=== PATIENT | female | born 1940 | race Caucasian/White ===

== ENCOUNTER 2018-04-01 06:00 | Outpatient (RCR) | payer MEDICARE ==
[~2018-04-01 06:00] MED LIST: ASP81CT PO; BIMA2.5D4 OU; CA C1TAB80 PO; CLD600T PO; CLOP75TA PO; DORZ10DR19 OU; HYDR28CR10 TOP; LISI2.5T PO; LISI5TAB14 PO; LORA0.5T PO; MTP25TSR PO; SIMV20TA3 PO; SIMV40TA4 PO; TRAV5DRO OD
== END 2018-04-02 | disposition home or self-care (01) ==
LOC: CR3 06:00
PROVIDERS: ATTEND Internal Medicine
DX: Z29.8 Encounter for other specified prophylactic measures (principal)

== ENCOUNTER 2018-05-02 08:29 | Outpatient (RCR) | payer MEDICARE | END 2018-05-03 | disposition home or self-care (01) | LOC: CR3 08:29 | PROVIDERS: ATTEND Internal Medicine | DX: Z29.8 Encounter for other specified prophylactic measures (principal) ==

== ENCOUNTER 2018-06-02 08:45 | Outpatient (RCR) | payer MEDICARE | END 2018-06-04 | disposition home or self-care (01) | LOC: CR3 08:45 | PROVIDERS: ATTEND Internal Medicine | DX: Z29.8 Encounter for other specified prophylactic measures (principal) ==

== ENCOUNTER 2018-07-02 10:10 | Outpatient (RCR) | payer MEDICARE | END 2018-07-03 | disposition home or self-care (01) | LOC: CR3 10:10 | PROVIDERS: ATTEND Internal Medicine | DX: Z29.8 Encounter for other specified prophylactic measures (principal) ==

== ENCOUNTER 2018-08-01 06:19 | Outpatient (RCR) | payer MEDICARE | END 2018-08-02 | disposition home or self-care (01) | LOC: CR3 06:19 | PROVIDERS: ATTEND Internal Medicine | DX: Z29.8 Encounter for other specified prophylactic measures (principal) ==

== ENCOUNTER → 2018-09-05 | Outpatient (RCR) | payer MEDICARE | END | disposition home or self-care (01) | LOC: CR3 08-06 09:00 | PROVIDERS: ATTEND Internal Medicine | DX: Z29.8 Encounter for other specified prophylactic measures (principal) ==

== ENCOUNTER → 2018-10-08 | Outpatient (RCR) | payer MEDICARE | END | disposition home or self-care (01) | LOC: CR3 09-08 09:00 | PROVIDERS: ATTEND Internal Medicine | DX: Z29.8 Encounter for other specified prophylactic measures (principal) ==

== ENCOUNTER 2018-11-07 08:09 | Outpatient (RCR) | payer MEDICARE | END 2018-11-08 | disposition home or self-care (01) | LOC: CR3 08:09 | PROVIDERS: ATTEND Internal Medicine | DX: Z29.8 Encounter for other specified prophylactic measures (principal) ==

== ENCOUNTER → 2018-12-10 | Outpatient (RCR) | payer MEDICARE | END | disposition home or self-care (01) | LOC: CR3 11-10 08:00 | PROVIDERS: ATTEND Internal Medicine | DX: Z29.8 Encounter for other specified prophylactic measures (principal) | CPT/HCPCS: 93798 ==

== ENCOUNTER 2019-01-06 06:00 | Outpatient (RCR) | payer MEDICARE | END 2019-01-10 | disposition home or self-care (01) | LOC: CR3 06:00 | PROVIDERS: ATTEND Internal Medicine | DX: Z29.8 Encounter for other specified prophylactic measures (principal) ==

== ENCOUNTER → 2019-02-11 | Outpatient (RCR) | payer MEDICARE | END | disposition home or self-care (01) | LOC: CR3 01-12 08:00 | PROVIDERS: ATTEND Internal Medicine | DX: Z29.8 Encounter for other specified prophylactic measures (principal) ==

== ENCOUNTER 2019-03-12 06:00 | Outpatient (RCR) | payer MEDICARE | END 2019-03-14 | disposition home or self-care (01) | LOC: CR3 06:00 | PROVIDERS: ATTEND Internal Medicine | DX: Z29.8 Encounter for other specified prophylactic measures (principal) ==

== ENCOUNTER → 2019-04-15 | Outpatient (RCR) | payer MEDICARE | END | disposition home or self-care (01) | LOC: CR3 03-16 08:00 | PROVIDERS: ATTEND Internal Medicine | DX: Z29.8 Encounter for other specified prophylactic measures (principal) ==

== ENCOUNTER 2019-05-08 08:06 | Outpatient (RCR) | payer MEDICARE | END 2019-05-17 | disposition home or self-care (01) | LOC: CR3 08:06 | PROVIDERS: ATTEND Internal Medicine | DX: Z29.8 Encounter for other specified prophylactic measures (principal) ==

== ENCOUNTER 2019-06-24 08:08 | Outpatient (RCR) | payer MEDICARE | END 2019-06-25 | disposition home or self-care (01) | LOC: CR3 08:08 | PROVIDERS: ATTEND Internal Medicine | DX: Z29.8 Encounter for other specified prophylactic measures (principal) ==

== ENCOUNTER 2019-07-24 08:13 | Outpatient (RCR) | payer MEDICARE | END 2019-07-25 | disposition home or self-care (01) | LOC: CR3 08:13 | PROVIDERS: ATTEND Internal Medicine | DX: Z29.8 Encounter for other specified prophylactic measures (principal) ==

== ENCOUNTER 2019-08-25 06:00 | Outpatient (RCR) | payer MEDICARE | END 2019-08-26 | disposition home or self-care (01) | LOC: CR3 06:00 | PROVIDERS: ATTEND Internal Medicine | DX: Z29.8 Encounter for other specified prophylactic measures (principal) ==

== ENCOUNTER 2019-09-25 09:00 | Outpatient (RCR) | payer MEDICARE | END 2019-09-26 00:12 | disposition home or self-care (01) | LOC: CR3 09:00 | PROVIDERS: ATTEND Internal Medicine | DX: Z29.8 Encounter for other specified prophylactic measures (principal) ==

== ENCOUNTER 2019-10-23 07:33 | Outpatient (RCR) | payer MEDICARE | END 2019-10-25 | disposition home or self-care (01) | LOC: CR3 07:33 | PROVIDERS: ATTEND Internal Medicine | DX: Z29.8 Encounter for other specified prophylactic measures (principal) ==

== ENCOUNTER 2019-11-23 08:12 | Outpatient (RCR) | payer MEDICARE | END 2019-11-25 | disposition home or self-care (01) | LOC: CR3 08:12 | PROVIDERS: ATTEND Internal Medicine | DX: Z29.8 Encounter for other specified prophylactic measures (principal) ==

== ENCOUNTER 2019-12-29 06:00 | Outpatient (RCR) | payer MEDICARE | END 2019-12-30 | disposition home or self-care (01) | LOC: CR3 06:00 | PROVIDERS: ATTEND Internal Medicine | DX: Z29.8 Encounter for other specified prophylactic measures (principal) ==

== ENCOUNTER 2020-01-29 08:09 | Outpatient (RCR) | payer MEDICARE | END 2020-01-30 | disposition home or self-care (01) | LOC: CR3 08:09 | PROVIDERS: ATTEND Internal Medicine | DX: Z29.8 Encounter for other specified prophylactic measures (principal) ==

== ENCOUNTER 2020-02-11 06:00 | Outpatient (RCR) | payer MEDICARE ==
--- NOTE | 2020-02-09 17:45 | NUR ---
CONTACTED PT FOR INFECTIOUS DISEASE SCREENING (PER ADMINISTRATION ORDERS)
== END 2020-03-02 | disposition home or self-care (01) ==
LOC: CR3 06:00
PROVIDERS: ATTEND Internal Medicine
DX: Z29.8 Encounter for other specified prophylactic measures (principal)

== ENCOUNTER → 2020-05-17 | Outpatient (CLI) | payer MEDICARE ==
[~2020-05-17] VITALS: Ht 172 cm; Wt 74.0 kg
[~2020-05-17] MED LIST changes: +CATHETER FLUSH 10 ML SYR IV PRN; +REGADENOSON 0.4 MG/5 ML SYR (LEXISCAN) IV ONE
[2020-05-17 09:35] VITALS: BP 163/95
--- NOTE | 2020-05-17 17:29 | STRESS TEST ---
DATE OF SERVICE: 05/17/2020 RESTING AND POST REGADENOSON TECHNETIUM-99M TETROFOSMIN SPECT CT IMAGING ORDERING PHYSICIAN: Lisha Brizuela APRN PRIMARY PHYSICIAN: Dr. Blake. CLINICAL DIAGNOSIS: Coronary artery disease. Baseline images were carried out after injection of 10.36 mCi of technetium-99m Tetrofosmin. This was followed by 0.4 mg regadenoson and 31.2 mCi of technetium-99m Tetrofosmin for stress imaging. The electrocardiogram showed sinus rhythm at baseline. It did not change significantly with regadenoson infusion. The patient had mild sternal pressure following regadenoson infusion, which resolved in a minute or two. The patient overall tolerated the procedure well. Review of images at rest and following stress does not indicate significant perfusion defects consistent with myocardial ischemia or infarction. Gated images show normal global left ventricular systolic function with normal regional wall motion. Left ventricular ejection fraction is calculated to be 76%. Left ventricular end diastolic volume is 25 mL. TID is absent (1.06). CONCLUSIONS: 1. No evidence of any significant myocardial ischemia or infarction on this study. 2. Normal regional wall motion. 3. Normal global left ventricular systolic function with a calculated ejection fraction of 76%. Job ID: [id number] DocumentID: [id number] Dictated Date: 05/17/2020 16:15:38 Intelligence Director Date: 05/17/2020 17:29:00 Dictated By: LEN CAMPOS MD, MA, FACP, FACC,
== END ==
LOC: CARD 07:46
PROVIDERS: ATTEND Nurse Practitioner Family
DX: I25.10 Atherosclerotic heart disease of native coronary artery without angina pectoris (principal); I65.23 Occlusion and stenosis of bilateral carotid arteries; E78.5 Hyperlipidemia, unspecified
CPT/HCPCS: 78452; 93017; A9502

== ENCOUNTER → 2021-03-15 | Outpatient (RCR) | payer MEDICARE ==
[~2021-03-15] MED LIST changes: -CATHETER FLUSH 10 ML SYR IV PRN; -REGADENOSON 0.4 MG/5 ML SYR (LEXISCAN) IV ONE
== END | disposition home or self-care (01) ==
LOC: CR3 02-13 08:37
PROVIDERS: ATTEND Internal Medicine
DX: Z29.8 Encounter for other specified prophylactic measures (principal)

== ENCOUNTER 2021-04-14 08:08 | Outpatient (RCR) | payer MEDICARE | END 2021-04-16 | disposition home or self-care (01) | LOC: CR3 08:08 | PROVIDERS: ATTEND Internal Medicine | DX: Z29.8 Encounter for other specified prophylactic measures (principal) ==

== ENCOUNTER → 2021-05-17 | Outpatient (RCR) | payer MEDICARE | END | disposition home or self-care (01) | LOC: CR3 04-17 07:51 | PROVIDERS: ATTEND Internal Medicine | DX: Z29.8 Encounter for other specified prophylactic measures (principal) ==

== ENCOUNTER → 2021-06-21 | Outpatient (RCR) | payer MEDICARE | LOC: CR3 05-22 12:19 | PROVIDERS: ATTEND Internal Medicine | DX: Z00.00 Encounter for general adult medical examination without abnormal findings (principal) ==

== ENCOUNTER 2021-07-19 08:35 | Outpatient (RCR) | payer MEDICARE | END 2021-07-23 | LOC: CR3 08:35 | PROVIDERS: ATTEND Internal Medicine | DX: Z29.8 Encounter for other specified prophylactic measures (principal) ==

== ENCOUNTER → 2021-08-23 | Outpatient (RCR) | payer MEDICARE | END | disposition home or self-care (01) | LOC: CR3 07-24 08:52 | PROVIDERS: ATTEND Internal Medicine | DX: Z29.8 Encounter for other specified prophylactic measures (principal) ==

== ENCOUNTER 2021-09-25 08:45 | Outpatient (RCR) | payer MEDICARE | END 2021-09-27 | disposition home or self-care (01) | LOC: CR3 08:45 | PROVIDERS: ATTEND Internal Medicine | DX: Z29.8 Encounter for other specified prophylactic measures (principal) ==

== ENCOUNTER → 2021-11-01 | Outpatient (RCR) | payer MEDICARE | END | disposition home or self-care (01) | LOC: CR3 10-02 08:19 | PROVIDERS: ATTEND Internal Medicine | DX: Z29.8 Encounter for other specified prophylactic measures (principal) ==

== ENCOUNTER 2021-11-17 13:00 | Outpatient (RCR) | payer MEDICARE | END 2021-12-01 | disposition home or self-care (01) | PROVIDERS: ATTEND Internal Medicine | DX: M54.2 Cervicalgia (principal); Z95.5 Presence of coronary angioplasty implant and graft ==

== ENCOUNTER 2021-11-22 09:22 | Outpatient (RCR) | payer MEDICARE ==
[2021-12-22] MEDS ORDERED: NITR-65 PO (13:36)
== END 2021-12-31 | disposition home or self-care (01) ==
LOC: CR3 09:22
PROVIDERS: ATTEND Internal Medicine
DX: Z29.8 Encounter for other specified prophylactic measures (principal)

== ENCOUNTER → 2021-12-01 | Outpatient (CLI) | payer MEDICARE ==
--- NOTE | 2021-12-01 11:24 | Diagnostic Imaging Report ---
Indication: Right shoulder pain 3 views of the right shoulder show no fracture, dislocation or other acute abnormalities. IMPRESSION: Negative right shoulder Dictated by: Dictated on workstation # [id number]
== END ==
LOC: RAD 10:54
PROVIDERS: ATTEND Nurse Practitioner Family
DX: M25.511 Pain in right shoulder (principal); Z91.81 History of falling
CPT/HCPCS: 73030

== ENCOUNTER 2021-12-22 10:51 | Emergency (ER) | payer MEDICARE ==
[~2021-12-22] VITALS: Ht 170.2 cm; Wt 65.8 kg
[2021-12-22] MEDS ORDERED: NS IV 500 ML 500 ML IV ONE (11:15)
[2021-12-22 11:22] LABS: BASOPHILS % (AUTO) 0 % (0-10); EOSINOPHILS # (AUTO) 0.2 10^3/uL (0.0-0.3); EOSINOPHILS % (AUTO) 3 % (0-10); HEMATOCRIT 36 % (35-52); HEMOGLOBIN 11.7 g/dL (11.5-16.0); LYMPHOCYTES # (AUTO) 1.6 10^3/uL (1.0-4.0); LYMPHOCYTES % (AUTO) 19 % (12-44); MEAN CORPUSCULAR HEMOGLOBIN 33 pg (25-34); MEAN CORPUSCULAR HGB CONC 32 g/dL (32-36); MEAN CORPUSCULAR VOLUME 104 fL (80-99); MEAN PLATELET VOLUME 8.8 fL (9.0-12.2); MONOCYTES # (AUTO) 0.5 10^3/uL (0.0-1.0); MONOCYTES % (AUTO) 6 % (0-12); NEUTROPHILS % (AUTO) 72 % (42-75); PLATELET COUNT 211 10^3/uL (130-400); WHITE BLOOD COUNT 8.4 10^3/uL (4.3-11.0)
--- NOTE | 2021-12-22 11:23 | ED Neurological Problem ---
General Stated Complaint: STROKE LIKE SYMPTOMS Source: patient Exam Limitations: no limitations History of Present Illness Date Seen by Provider: Dec 22, 2021 Time Seen by Provider: 11:05 Initial Comments Patient to the ER by private conveyance with her and chief complaint she has been acting weird for the past couple days. No specific last known well time. He says she is a little bit been slurring her speech at time very barely noticeable. He has not seen any facial droop weakness. She has no complaints of numbness tingling pain headaches, visual changes nausea vomiting fevers chills cough shortness of air diarrhea or constipation. Her last bowel meant was yesterday. The patient states she feels fine. The patient's says she in the past week has had two falls the first time was when they put her on a platform at a restaurant and she did not realize she was up 4 inches and missed the step. The last time yesterday was at the bottom two steps she missed stepped and fell down. She had an x-ray done of her ribs at the time which was okay. She was put on meloxicam by Dr. Blake's nurse practitioner in the last week or so. No history of strokes but she does have a history of stents. She is known to Dr. Welsh for cardiology. She is on Plavix. No blood thinners. Allergies and Home Medications Allergies Coded Allergies: No Known Drug Allergies (Unverified , 06/02/13) Patient Home Medication List Home Medication List Reviewed: Yes Aspirin (Aspirin 81 Mg Chew Tab) 81 Mg Chew, 81 MG PO DAILY, (Reported) Entered as Reported by: STEVIE LOUISE on 06/04/13 142 Ca Carbonate/Vitamin D3/Vit K (Viactiv Soft Chew Tablet) 1 Each Tab.chew, 1 TAB PO BID, (Reported) Entered as Reported by: MARU MCLEAN on 11/05/13 1112 Clopidogrel Bisulfate (Plavix 75 Mg) 75 Mg Tablet, 75 MG PO DAILY, (Reported) Entered as Reported by: STEVIE LOUISE on 06/04/13 1427 Hydrocortisone/Oatmeal/Aloe/E (Hydrocortisone 1% Cream) 28.4 Gm Cream.gm., 1 GM TOP TID PRN for RASH, (Reported) Entered as Reported by: SUDEEP PEREZ on 06/02/13 1639 Lisinopril (Prinivil) 2.5 Mg Tablet, 2.5 MG PO DAILY, (Reported) Entered as Reported by: STEVIE LOUISE on 06/04/13 1427 Metoprolol Succinate (Toprol Xl 25MG) 25 Mg Tab.sr.24h, 25 MG PO DAILY, (Reported) Entered as Reported by: STEVIE LOUISE on 06/04/13 1427 Simvastatin (Simvastatin) 40 Mg Tablet, 40 MG PO DAILY, (Reported) Entered as Reported by: HERNÁN WINKLER on 11/04/132058 Timolol Maleate/Dorzolam Hcl (Dorzolamide-Timolol Eye Drops) 10 Ml Drops, 1 DROP OU BID, (Reported) Entered as Reported by: SUDEEP PEREZ on 06/02/13 163 Travoprost (Travatan Z) 5 Ml Drops, 1 DROP OD HS, (Reported) Entered as Reported by: MARU MCLEAN on 11/05/13 1106 [[id number]] , 2.5 MG PO BID Prescribed by: SONNY KNIGHT on 11/06/13 0958 Review of Systems Review of Systems Constitutional: No chills, No diaphoresis, No dizziness, No fever, No malaise, No weakness Eyes: Denies Blindness, Denies Blurred Vision, Denies Drainage Ears, Nose, Mouth, Throat: denies ear pain, denies ear discharge Respiratory: No cough, No short of breath Cardiovascular: No chest pain, No edema; Hx of Intervention; No palpitations, No syncope Gastrointestinal: No abdominal pain, No constipation, No diarrhea Genitourinary: No discharge, No dysuria, No frequency, No hematuria Musculoskeletal: see HPI; No back pain, No joint pain Psychiatric/Neurological: Denies Anxiety, Denies Depressed All Other Systems Reviewed Negative Unless Noted: Yes Past Ixiupdp-Ejzdgn-Fipqpm Hx Patient Social History Tobacco Use?: No Use of E-Cig and/or Vaping dev: No Substance use?: No Immunizations Up To Date Tetanus Booster (TDap): Less than 5yrs Seasonal Allergies Seasonal Allergies: No Past Medical History Reproductive Disorders: No Sexually Transmitted Disease: No Glaucoma Hearing Impairment: Hard of Hearing Adverse Reaction/Blood Tranf: No Family Medical History Cancer AUNT (PATERNAL) AUNT (PATERNAL) Chest pain GRANDFATEHR (MATERNAL) Family history: Arthritis 03 FATHER 03 MOTHER Family history: Breast disease AUNT (PATERNAL) AUNT (PATERNAL) Family history: Cardiovascular disease GRANDFATEHR (MATERNAL) Family history: Coronary thrombosis GRANDFATEHR (MATERNAL) Family history: Diabetes mellitus 03 MOTHER Family history: Hypertension GRANDFATEHR (MATERNAL) Hearing loss 03 FATHER Myocardial infarction GRANDFATEHR (MATERNAL) Stroke GRANDMOTHER (MATERNAL) Heart Disease Physical Exam Vital Signs Vital Signs - First Documented 12/22/21 10:53 Temp 36.2 Pulse 70 Resp 15 B/P (MAP) 139/70 (93) O2 Delivery Room Air Capillary Refill : Height, Weight, BMI Height: '" Weight: 151lbs. oz. 68.370581fk; 25.01 BMI Method:Stated General Appearance: WD/WN, no apparent distress HEENT: PERRL/EOMI, normal ENT inspection, TMs normal (Negative for hemotympanum or blackburn sign), pharynx normal Neck: non-tender, full range of motion, supple, normal inspection Respiratory: chest non-tender, lungs clear, normal breath sounds, no respiratory distress, no accessory muscle use Cardiovascular: normal peripheral pulses, regular rate, rhythm, no edema Peripheral Pulses: 2+ Dorsalis Pedis (R), 2+ Left Dors-Pedis (L), 2+ Radial Pulses (R), 2+ Radial Pulses (L) Gastrointestinal: normal bowel sounds, non tender, soft Neurologic/Psychiatric: slurry tank tender II-XII nml as tested, no motor/sensory deficits, alert, normal mood/affect, oriented x 3 Crainal Nerves: normal hearing, normal speech, PERRL Coordination/Gait: normal finger to nose, normal gait Motor/Sensory: no motor deficit, no sensory deficit, no pronator drift Skin: normal color, warm/dry Stroke Onset of Symptoms Date of Onset of Symptoms: Dec 20, 2021 Symptoms onset unknown: Yes NIH Stroke Scale Assessment Select: Initial Level of Consciousness: 0=Alert (0), Level of Consciousness- Questions: 0=Answers both month/age (0), LOC Commands: 0=Performs both tasks (0), Gaze: Normal (0), Visual [place]ral: 0=No visual loss (0), Facial Movement (Facial Paresis): 0=Normal symmetrical mnt (0), Motor Function-Arms Right: 0=No drift (0), Motor Function-Arms Left: 0=No drift (0), Motor Function-Legs Right: 0=No drift (0), Motor Function-Legs Left: 0=No drift (0), Limb Ataxia: 0=Absent (0), Sensory: 0=Normal:no loss (0), Best Language: 0=No aphasia (0), Dysarthria: 0=Normal (0), Extinction & Inattention: 0=No abnormality (0), Total: 0 Stroke Thrombolytic Exclusion Age 18 or Over: No Acute intenal hemorrhage: No History of CVA: No Uncontrolled Coagulation Defec: No Intracranial Hemorrhage: No Severe Hypertension: No GI or Bleed: No Subarachnoid Hemorrhage: No Intracranial Neoplasm/Aneurysm: No Oral Anticoagulants: No Surgery or Trauma: No Puncture of Non-Compressible V: No Recent CPR: No Diabetic Hemorrhagic Retinopat: No Organ Biopsy: No Recent Obstetric Delivery: No Glucose: No (120) Significant Hepatic Dysfunctio: No NIH Stoke Scale >22: No Bacterial Endocarditis: No Pericarditis: No Improving Symptoms: No Platelets: No TPA Contraindication: No IV - TPa Received IV - TPa Procedure Performed?: No (Insufficient benefit based on lack of features of stroke) Progress/Results/Core Measures Results/Orders Lab Results Laboratory Tests Test 12/22/21 10:57 12/22/21 11:07 12/22/21 11:30 12/22/21 12:36 Range/Units Glucometer 120 H 70-110 MG/DL White Blood Count 8.4 4.3-11.0 10^3/uL Red Blood Count 3.51 L 3.80-5.11 10^6/uL Hemoglobin 11.7 11.5-16.0 g/dL Hematocrit 36 35-52 % Mean Corpuscular Volume 104 H 80-99 fL Mean Corpuscular Hemoglobin 33 25-34 pg Mean Corpuscular Hemoglobin Concent 32 32-36 g/dL Red Cell Distribution Width 12.5 10.0-14.5 % Platelet Count 211 130-400 10^3/uL Mean Platelet Volume 8.8 L 9.0-12.2 fL Immature Granulocyte % (Auto) 1 % Neutrophils (%) (Auto) 72 42-75 % Lymphocytes (%) (Auto) 19 12-44 % Monocytes (%) (Auto) 6 0-12 % Eosinophils (%) (Auto) 3 0-10 % Basophils (%) (Auto) 0 0-10 % Neutrophils # (Auto) 6.0 1.8-7.8 10^3/uL Lymphocytes # (Auto) 1.6 1.0-4.0 10^3/uL Monocytes # (Auto) 0.5 0.0-1.0 10^3/uL Eosinophils # (Auto) 0.2 0.0-0.3 10^3/uL Basophils # (Auto) 0.0 0.0-0.1 10^3/uL Immature Granulocyte # (Auto) 0.0 0.0-0.1 10^3/uL Sodium Level 134 L 135-145 MMOL/L Potassium Level 4.4 3.6-5.0 MMOL/L Chloride Level 102 98-107 MMOL/L Carbon Dioxide Level 22 21-32 MMOL/L Anion Gap 10 5-14 MMOL/L Blood Urea Nitrogen 15 7-18 MG/DL Creatinine 0.81 0.60-1.30 MG/DL Estimat Glomerular Filtration Rate 72 BUN/Creatinine Ratio 19 Glucose Level 105 70-105 MG/DL Calcium Level 9.2 8.5-10.1 MG/DL Corrected Calcium 9.1 8.5-10.1 MG/DL Total Bilirubin 0.5 0.1-1.0 MG/DL Aspartate Amino Transf (AST/SGOT) 19 5-34 U/L Alanine Aminotransferase (ALT/SGPT) 14 0-55 U/L Alkaline Phosphatase 72 40-136 U/L Troponin I < 0.028 <0.028 NG/ML C-Reactive Protein High Sensitivity 0.45 0.00-0.50 MG/DL Total Protein 7.2 6.4-8.2 GM/DL Albumin 4.1 3.2-4.5 GM/DL Serum Alcohol < 10 <10 MG/DL Influenza Type A (RT-PCR) Not Detected Not Detecte Influenza Type B (RT-PCR) Not Detected Not Detecte SARS-CoV-2 RNA (RT-PCR) Not Detected Not Detecte Urine Color YELLOW Urine Clarity CLEAR Urine pH 6.5 5-9 Urine Specific [place] 1.020 1.016-1.022 Urine Protein NEGATIVE NEGATIVE Urine Glucose (UA) NEGATIVE NEGATIVE Urine Ketones NEGATIVE NEGATIVE Urine Nitrite NEGATIVE NEGATIVE Urine Bilirubin NEGATIVE NEGATIVE Urine Urobilinogen 0.2 < = 1.0 MG/DL Urine Leukocyte Esterase TRACE H NEGATIVE Urine RBC (Auto) TRACE-I H NEGATIVE Urine RBC 0-2 /HPF Urine WBC 2-5 /HPF Urine Squamous Epithelial Cells 2-5 /HPF Urine Crystals NONE /LPF Urine Bacteria LARGE H /HPF Urine Casts NONE /LPF Urine Mucus NEGATIVE /LPF Urine Culture Indicated YES My Orders Orders - ELSY MORALES Ct Head/Cervical Spine Wo (12/22/21 11:11) Ed Iv/Invasive Line Start (12/22/21 11:11) Cbc With Automated Diff (12/22/21 11:11) Comprehensive Metabolic Panel (12/22/21 11:11) Hs C Reactive Protein (12/22/21 11:11) Ua Culture If Indicated (12/22/21 11:11) Alcohol (12/22/21 11:11) Accucheck Stat ONCE (12/22/21 11:11) Ekg Tracing (12/22/21 11:11) Continuous Ekg Monitoring (12/22/21 11:11) Troponin I [place] (12/22/21 11:11) Ed Iv/Invasive Line Start (12/22/21 11:13) Ns Iv 500 Ml (Sodium Chloride 0.9%) (12/22/21 11:15) Chest 1 View, Ap/Pa Only (12/22/21 11:15) Covid 19 Inhouse Test (12/22/21 11:15) Influenza A And B By Pcr (12/22/21 11:15) Acetaminophen Tablet (Tylenol Tablet) (12/22/21 12:45) Urine Culture (12/22/21 12:36) Medications Given in ED Current Medications Medications Dose Ordered Sig/Margo Route Start Time Stop Time Status Last Admin Dose Admin Acetaminophen 1,000 mg ONCE ONCE PO 12/22/21 12:45 12/22/21 12:46 DC 12/22/21 12:56 1,000 MG Sodium Chloride 500 ml @ 0 mls/hr Q0M ONCE IV 12/22/21 11:15 12/22/21 11:16 DC 12/22/21 11:32 999 MLS/HR Vital Signs/I&O 12/22/21 10:53 Temp 36.2 Pulse 70 Resp 15 B/P (MAP) 139/70 (93) O2 Delivery Room Air Progress Progress Note #1: Time: 11:22 Progress Note No lateralizing symptoms. Symptoms more consistent with a delirium. She did recently start meloxicam so we will check fluid and electrolytes and kidney function. We will get a CT since she had a couple falls to rule out subdural hematoma or normal pressure hydrocephalus or other intracranial source of her symptoms. We will check urine and labs get an EKG looking for dysrhythmias. The patient's not giving any acute complaints at this time. Progress Note #2: Time: 12:57 Progress Note The patient is complaining of a headache. Tylenol has been offered. Progress Note #3: Time: 13:32 Progress Note On repeat examination the patient's symptoms have not changed. He is not having any lateralizing deficits or neurologic deficits. Repeat NIH is still 0 points. We will give her Macrobid and encourage outpatient treatment of UTI. Follow-up next week or 2 with primary care. Discussed over the phone with her the likelihood of delirium related to urinary tract infection. Initial ECG Impression Date: Dec 22, 2021 Initial ECG Impression Time: 11:34 Initial ECG Rate: 64 Initial ECG Rhythm: Normal Sinus Initial ECG Intervals: Normal Initial ECG Impression: Normal, Nonspecific Changes Initial ECG Comparisson: No Previous ECG Available Comment Normal sinus rhythm without clinically relevant dysrhythmias or ST elevation or depression. Diagnostic Imaging Diagonstic Imaging: Xray Plain Films/CT/US/NM/MRI: chest Comments NAME: GRAHAM SIMMONS [facility] REC#: [id number] PT STATUS: REG ER : 1940 PHYSICIAN: ELSY MORALES MD ADMIT DATE: 12/22/21/ER Draft Date of Exam:12/22/21 CHEST 1 VIEW, AP/PA ONLY INDICATION: Stroke like symptoms, difficulty speaking starting last night.. TECHNIQUE: Single view chest 4:32 PM. CORRELATION STUDY: 11/04/2013 FINDINGS: The heart size, mediastinal configuration and pulmonary vascularity are within normal limits. Coronary artery stent left heart border is present. The lungs are clear with no consolidating infiltrate. There is no significant effusion or pneumothorax. IMPRESSION: 1. Negative for acute abnormality of the chest. Dictated on workstation # [id number] Dict: 12/22/21 1253 Trans: 12/22/21 1254 [id number] Interpreted by: MICHELE ANGUIANO DO Electronically signed by: Reviewed: Reviewed by Me Diagonstic Imaging: CT Plain Films/CT/US/NM/MRI: c-spine, head Comments [facility] [place], [place] NAME: GRAHAM SIMMONS [facility] REC#: [id number] PT STATUS: REG ER : 1940 PHYSICIAN: ELSY MORALES MD ADMIT DATE: 12/22/21/ER Draft Date of Exam:12/22/21 CT HEAD/CERVICAL SPINE WO PROCEDURE: CT head and CT cervical spine without contrast. TECHNIQUE: Multiple contiguous axial images were obtained through the brain and cervical spine without the use of intravenous contrast. Sagittal and coronal reformations through the cervical spine were then performed. Auto Exposure Controls were utilized during the CT exam to meet ALARA standards for radiation dose reduction. INDICATION: Frequent falls. COMPARISON: No prior studies are available for comparison. FINDINGS: CT HEAD: The ventricles and sulci are prominent consistent with the patient's age. There is mild periventricular hypodensity noted consistent with senescent change. No sulcal effacement or midline shift is identified. No acute intra-axial or extra-axial hemorrhage is detected. Cisterns are patent. Visualized paranasal sinuses are clear apart from trace fluid in the right maxillary sinus. IMPRESSION: Senescent changes. No acute intracranial process is detected. CT CERVICAL SPINE: Curvature and alignment of the cervical spine is normal. There is some generalized spondylosis with variable disc space narrowing. There is multilevel facet arthropathy. No fracture or subluxation is identified. Prevertebral tissues are within normal limits. Odontoid is intact. IMPRESSION: Cervical spondylosis. No acute bony abnormality is detected. Dictated on workstation # [id number] Dict: 12/22/21 1225 Trans: 12/22/21 1235 [id number] Interpreted by: HÉCTOR DUONG MD Electronically signed by: Reviewed: Reviewed by Me Departure Impression Primary Impression: Urinary tract infection Qualified Codes: N30.00 - Acute cystitis without hematuria Additional Impression: Delirium Disposition: HOME, SELF-CARE Condition: Stable Departure-Patient Inst. Decision time for Depature: 13:33 Referrals: GABBIE BLAKE MD (PCP/Family) Primary Care Physician Patient Instructions: Urinary Tract Infection, Adult (DC), Delirium (Confusion) Add. Discharge Instructions: Encourage plenty of fluids to drink over the next week. Macrobid twice a day for 1 week to treat urinary tract infection. As the underlying infection resolves so to should her delirium/confusion. If she develops new symptoms such as one-sided facial droop, weakness numbness or other worrisome concerns then please return to the ER for further evaluation. Otherwise plan to follow-up with her primary care office in 1 to 2 weeks for recheck. Scripts Nitrofurantoin Monohyd/M-Cryst (Macrobid 100 mg Capsule) 100 Mg Capsule 1 TAB PO BID for 7 Days, #14 CAP 0 Refills Prov: ELSY MORALES 12/22/21 Copy Copies To 1: GABBIE BLAKE MD, TITUS J Dec 22, 2021 11:23
[2021-12-22 11:27] LABS: ALBUMIN 4.1 GM/DL (3.2-4.5); CHLORIDE 102 MMOL/L (98-107); POTASSIUM 4.4 MMOL/L (3.6-5.0); SODIUM 134 MMOL/L (135-145)
[2021-12-22 11:28] LABS: CALCIUM 9.2 MG/DL (8.5-10.1)
[2021-12-22 11:29] LABS: GLUCOSE 105 MG/DL (70-105)
[2021-12-22 11:30] LABS: TOTAL PROTEIN 7.2 GM/DL (6.4-8.2)
[2021-12-22 11:31] LABS: BILIRUBIN,TOTAL 0.5 MG/DL (0.1-1.0); CARBON DIOXIDE 22 MMOL/L (21-32)
[2021-12-22 11:33] LABS: ALKALINE PHOSPHATASE 72 U/L (40-136); CREATININE SERUM 0.81 MG/DL (0.60-1.30); GFR ESTIMATED 72
[2021-12-22 11:34] LABS: BUN/CREATININE RATIO 19
[2021-12-22 11:36] LABS: ALANINE AMINOTRANSFERASE 14 U/L (0-55)
--- NOTE | 2021-12-22 12:35 | Diagnostic Imaging Report ---
PROCEDURE: CT head and CT cervical spine without contrast. TECHNIQUE: Multiple contiguous axial images were obtained through the brain and cervical spine without the use of intravenous contrast. Sagittal and coronal reformations through the cervical spine were then performed. Auto Exposure Controls were utilized during the CT exam to meet ALARA standards for radiation dose reduction. INDICATION: Frequent falls. COMPARISON: No prior studies are available for comparison. FINDINGS: CT HEAD: The ventricles and sulci are prominent consistent with the patient's age. There is mild periventricular hypodensity noted consistent with senescent change. No sulcal effacement or midline shift is identified. No acute intra-axial or extra-axial hemorrhage is detected. Cisterns are patent. Visualized paranasal sinuses are clear apart from trace fluid in the right maxillary sinus. IMPRESSION: Senescent changes. No acute intracranial process is detected. CT CERVICAL SPINE: Curvature and alignment of the cervical spine is normal. There is some generalized spondylosis with variable disc space narrowing. There is multilevel facet arthropathy. No fracture or subluxation is identified. Prevertebral tissues are within normal limits. Odontoid is intact. IMPRESSION: Cervical spondylosis. No acute bony abnormality is detected. Dictated by: Dictated on workstation # [id number]
[2021-12-22] MEDS ORDERED: ACETAMINOPHEN 500 MG TAB (TYLENOL) PO ONE (12:45)
[2021-12-22 12:46] LABS: BILIRUBIN,URINE NEGATIVE (NEGATIVE); CLARITY,URINE CLEAR; COLOR,URINE YELLOW; GLUCOSE, URINE (UA) NEGATIVE (NEGATIVE); KETONES,URINE NEGATIVE (NEGATIVE); LEUKOCYTE ESTERASE ,URINE TRACE (NEGATIVE); NITRITE,URINE NEGATIVE (NEGATIVE); PH,URINE 6.5 (5-9); PROTEIN,URINE NEGATIVE (NEGATIVE)
--- NOTE | 2021-12-22 12:54 | Diagnostic Imaging Report ---
INDICATION: Stroke like symptoms, difficulty speaking starting last night.. TECHNIQUE: Single view chest 4:32 PM. CORRELATION STUDY: 11/04/2013 FINDINGS: The heart size, mediastinal configuration and pulmonary vascularity are within normal limits. Coronary artery stent left heart border is present. The lungs are clear with no consolidating infiltrate. There is no significant effusion or pneumothorax. IMPRESSION: 1. Negative for acute abnormality of the chest. Dictated by: Dictated on workstation # [id number]
[2021-12-22 12:59] LABS: BACTERIA,URINE LARGE /HPF; RBC,URINE 0-2 /HPF
[2021-12-22] MEDS ORDERED: NITROFURANTOIN 100 MG (MACROBID) CAPSULE PO ONE (13:30)
[2021-12-22] MEDS ORDERED: NITR-65 PO (13:36)
[2021-12-22 14:00] VITALS: BP 127/79
== END 2021-12-22 14:00 | disposition home or self-care (01) ==
LOC: EDUNIT# 10:51 → ER 10:54
DX: N39.0 Urinary tract infection, site not specified (principal); R41.0 Disorientation, unspecified; H40.9 Unspecified glaucoma; Z20.822 Contact with and (suspected) exposure to COVID-19; Z79.82 Long term (current) use of aspirin; Z79.899 Other long term (current) drug therapy; Z79.01 Long term (current) use of anticoagulants
CPT/HCPCS: 70450; 71045; 72125; 80053; 81000; 82947; 84484; 85025; 86141; 87077; 87088; 87186; 87636; 93005; 99284; G0480; 36415; 80320

== ENCOUNTER 2021-12-29 14:14 | Outpatient (RCR) | payer MEDICARE ==
[~2021-12-29 14:14] MED LIST changes: +NITR-65 PO
== END 2022-01-01 | disposition home or self-care (01) ==
PROVIDERS: ATTEND Internal Medicine
DX: M54.2 Cervicalgia (principal)

== ENCOUNTER 2022-01-19 10:15 | Outpatient (RCR) | payer MEDICARE | END 2022-01-19 10:48 | disposition home or self-care (01) | PROVIDERS: ATTEND Internal Medicine | DX: M54.2 Cervicalgia (principal); M25.519 Pain in unspecified shoulder ==

== ENCOUNTER 2022-03-07 16:58 | Outpatient (RCR) | payer MEDICARE | END 2022-03-31 | disposition home or self-care (01) | LOC: CR3 16:58 | PROVIDERS: ATTEND Internal Medicine | DX: Z29.8 Encounter for other specified prophylactic measures (principal) ==

== ENCOUNTER 2022-08-27 18:24 | Inpatient (IN) | payer MEDICARE ==
[~2022-08-27] VITALS: Ht 170 cm; Wt 71.5 kg
--- NOTE | 2022-08-27 18:39 | ED Fall/Injury ---
General Chief Complaint: Hip/Pelvic Problems Stated Complaint: FALL/RT HIP PAIN Nursing Triage Note: PT TO ED BY [facility] WITH C/O R HIP PAIN. PT REPORTS SHE WAS WALKING IN HER HOUSE, FELL AND LANDED ON R HIP. EXTERNAL ROTATION OF R LEG NOTED UPON ARRIVAL. Source: patient (PT RECEIVED PAIN MEDICATION PRIOR TO ARRIVAL, AND IS DROWSY AND LIMITED HISTORIAN AT THIS TIME. ), EMS, spouse History of Present Illness Date Seen by Provider: Aug 27, 2022 Time Seen by Provider: 18:25 Initial Comments PT ARRIVES VIA EMS FROM HOME, ARRIVES VIA POV PT WAS WALKING INTO HER HOUSE, AND LOST HER BALANCE AND FELL, LANDING ON HER RIGHT HIP [place]O [place] DID NOT HIT HER HEAD AND NO LOSS OF CONSCIOUSNESS C/O RIGHT HIP PAIN ONLY. NO PARESTHESIAS OR MOTOR DEFICITS DENIES NECK OR BACK PAIN DENIES PAIN BELOW THE KNEE NO PRIOR INJURY OR PROBLEMS OR SURGERY TO THIS HIP PT IS ON A BLOOD THINNER FOR CAD WITH STENTS X 2--PLAVIX + ASPIRIN EMS GAVE 100 MCG FENTANYL PRIOR TO ARRIVAL. PCP: DR. MONTES HOOKER INSPECTOR: DR. CAMPOS Allergies and Home Medications Allergies Coded Allergies: No Known Drug Allergies (Unverified , 06/02/13) Patient Home Medication List Home Medication List Reviewed: Yes Aspirin (Aspirin 81 Mg Chew Tab) 81 Mg Chew, 81 MG PO DAILY, (Reported) Entered as Reported by: STEVIE LOUISE on 06/04/13 142 Ca Carbonate/Vitamin D3/Vit K (Viactiv Soft Chew Tablet) 1 Each Tab.chew, 1 TAB PO BID, (Reported) Entered as Reported by: MARU MCLEAN on 11/05/13 1112 Clopidogrel Bisulfate (Plavix 75 Mg) 75 Mg Tablet, 75 MG PO DAILY, (Reported) Entered as Reported by: STEVIE LOUISE on 06/04/13 1427 Hydrocortisone/Oatmeal/Aloe/E (Hydrocortisone 1% Cream) 28.4 Gm Cream.gm., 1 GM TOP TID PRN for RASH, (Reported) Entered as Reported by: SUDEEP PEREZ on 06/02/13 1639 Lisinopril (Prinivil) 2.5 Mg Tablet, 2.5 MG PO DAILY, (Reported) Entered as Reported by: STEVIE LOUISE on 06/04/13 1427 Metoprolol Succinate (Toprol Xl 25MG) 25 Mg Tab.sr.24h, 25 MG PO DAILY, (Reported) Entered as Reported by: STEVIE LOUISE on 06/04/13 1427 Nitrofurantoin Monohyd/M-Cryst (Macrobid 100 mg Capsule) 100 Mg Capsule, 1 TAB PO BID Prescribed by: ELSY MORALES on 12/22/21 1336 Simvastatin (Simvastatin) 40 Mg Tablet, 40 MG PO DAILY, (Reported) Entered as Reported by: HERNÁN WINKLER on 11/04/13 205 Timolol Maleate/Dorzolam Hcl (Dorzolamide-Timolol Eye Drops) 10 Ml Drops, 1 DROP OU BID, (Reported) Entered as Reported by: SUDEEP PEREZ on 06/02/13 1639 Travoprost (Travatan Z) 5 Ml Drops, 1 DROP OD HS, (Reported) Entered as Reported by: MARU MCLEAN on 11/05/13 1106 [[id number]] , 2.5 MG PO BID Prescribed by: SONNY KNIGHT on 11/06/13 0958 Review of Systems Review of Systems Constitutional: no symptoms reported Eyes: No Symptoms Reported Ears, Nose, Mouth, Throat: no symptoms reported Respiratory: no symptoms reported Cardiovascular: no symptoms reported Gastrointestinal: no symptoms reported Genitourinary: no symptoms reported Musculoskeletal: see HPI Skin: no symptoms reported Psychiatric/Neurological: No Symptoms Reported Past Vbnrsqq-Puzvid-Csbvco Hx Patient Social History Tobacco Use?: No Use of E-Cig and/or Vaping dev: No Substance use?: No Alcohol Use?: No Immunizations Up To Date Tetanus Booster (TDap): Less than 5yrs Seasonal Allergies Seasonal Allergies: No Past Medical History Surgeries: Yes (CARDIAC CATHS WITH STENTS X 2) Cardiac, Coronary Stent, Eye Surgery Cardiac: Yes (STENTS X 2) Coronary Artery Disease, Heart Attack, High Cholesterol, Hypertension Neurological: No Reproductive Disorders: No Sexually Transmitted Disease: No Genitourinary: No HEENT: Yes Cataract, Glaucoma Hearing Impairment: Hard of Hearing Adverse Reaction/Blood Tranf: No Family Medical History Cancer AUNT (PATERNAL) AUNT (PATERNAL) Chest pain GRANDFATEHR (MATERNAL) Family history: Arthritis 03 FATHER 03 MOTHER Family history: Breast disease AUNT (PATERNAL) AUNT (PATERNAL) Family history: Cardiovascular disease GRANDFATEHR (MATERNAL) Family history: Coronary thrombosis GRANDFATEHR (MATERNAL) Family history: Diabetes mellitus 03 MOTHER Family history: Hypertension GRANDFATEHR (MATERNAL) Hearing loss 03 FATHER Myocardial infarction GRANDFATEHR (MATERNAL) Stroke GRANDMOTHER (MATERNAL) Heart Disease ADDITIONAL PMH: -06/2013--STEMI WITH ANGIOPLASTY AND STENT [address] CAMPOS -11/2013--NSTEMI WITH ANGIOPLASTY AND STENT X 1 TO OBTUSE MARGINAL OF LEFT CIRCUMFLEX--BY DR. CAMPOS Physical Exam Vital Signs Vital Signs - First Documented 08/27/22 18:25 Pulse 61 Resp 17 B/P (MAP) 183/106 (131) Pulse Ox 95 O2 Delivery Room Air Capillary Refill : Less Than 3 Seconds Height, Weight, BMI Height: '" Weight: 151lbs. oz. [id number]; 22.00 BMI Method:Stated General Appearance: WD/WN, no apparent distress, thin HEENT: PERRL/EOMI, other (LEFT CORNEA WITH CLOUDINESS, AND POST OP CHANGES. ) Neck: non-tender, full range of motion, supple, normal inspection Cardiovascular: normal peripheral pulses, regular rate, rhythm, no murmur Respiratory: chest non-tender, normal breath sounds, no respiratory distress, no accessory muscle use Peripheral Pulses: 1+ Dorsalis Pedis (R), 1+ Left Dors-Pedis (L) Gastrointestinal: non tender, soft Back: no CVA tenderness, no vertebral tenderness Extremities: no pedal edema, no calf tenderness, normal capillary refill, other (RIGHT HIP TENDERNESS; RIGHT LEG SHORTENED AND EXTERNALLY ROTATED. DISTAL MOTOR/SENSORY/VASCULAR INTACT) Neurologic/Psychiatric: soup mixer II-XII nml as tested, no motor/sensory deficits, alert, oriented x 3, other (PT WITH SLOW MENTATION AND DROWSINESS-- SINCE RECEIVING FENTANYL BETA TESTER; WAS NORMAL MENTATION PRIOR TO RECEIVING PAIN MEDICATIONS, PER EMS AND ) Skin: normal color, warm/dry; No ecchymosis [place] Coma Score Best Eye Response: (4) Open Spontaneously Best Verbal Response: (5) Oriented Best Motor Response: (6) Obeys Commands [place] Total: 15 Progress/Results/Core Measures Results/Orders Lab Results Laboratory Tests Test 08/27/22 18:29 Range/Units White Blood Count 7.8 4.3-11.0 10^3/uL Red Blood Count 3.65 L 3.80-5.11 10^6/uL Hemoglobin 11.9 11.5-16.0 g/dL Hematocrit 37 35-52 % Mean Corpuscular Volume 101 H 80-99 fL Mean Corpuscular Hemoglobin 33 25-34 pg Mean Corpuscular Hemoglobin Concent 32 32-36 g/dL Red Cell Distribution Width 12.4 10.0-14.5 % Platelet Count 193 130-400 10^3/uL Mean Platelet Volume 9.2 9.0-12.2 fL Immature Granulocyte % (Auto) 1 % Neutrophils (%) (Auto) 59 42-75 % Lymphocytes (%) (Auto) 26 12-44 % Monocytes (%) (Auto) 8 0-12 % Eosinophils (%) (Auto) 6 0-10 % Basophils (%) (Auto) 1 0-10 % Neutrophils # (Auto) 4.6 1.8-7.8 10^3/uL Lymphocytes # (Auto) 2.1 1.0-4.0 10^3/uL Monocytes # (Auto) 0.6 0.0-1.0 10^3/uL Eosinophils # (Auto) 0.5 H 0.0-0.3 10^3/uL Basophils # (Auto) 0.1 0.0-0.1 10^3/uL Immature Granulocyte # (Auto) 0.0 0.0-0.1 10^3/uL Prothrombin Time 12.8 12.2-14.7 SEC INR Comment 0.9 0.8-1.4 Activated Partial Thromboplast Time 31 24-35 SEC Sodium Level 137 135-145 MMOL/L Potassium Level 4.0 3.6-5.0 MMOL/L Chloride Level 100 98-107 MMOL/L Carbon Dioxide Level 26 21-32 MMOL/L Anion Gap 11 5-14 MMOL/L Blood Urea Nitrogen 16 7-18 MG/DL Creatinine 0.81 0.60-1.30 MG/DL Estimat Glomerular Filtration Rate 72 BUN/Creatinine Ratio 20 Glucose Level 75 70-105 MG/DL Calcium Level 9.2 8.5-10.1 MG/DL Corrected Calcium 9.0 8.5-10.1 MG/DL Total Bilirubin 0.5 0.1-1.0 MG/DL Aspartate Amino Transf (AST/SGOT) 27 5-34 U/L Alanine Aminotransferase (ALT/SGPT) 21 0-55 U/L Alkaline Phosphatase 76 40-136 U/L Total Protein 7.0 6.4-8.2 GM/DL Albumin 4.3 3.2-4.5 GM/DL My Orders Orders - ACE PIÑA DO Ed Iv/Invasive Line Start (08/27/22 18:28) Femur, Right, 2 Views (08/27/22 18:28) Pelvis With Right Hip 2-3views (08/27/22 18:28) Chest 1 View, Ap/Pa Only (08/27/22 18:33) Catheter(Urinary) Insert & Ass 03,15 (08/27/22 19:15) Monitor-Rhythm Ecg Trace Only (08/27/22 19:15) Cbc With Automated Diff (08/27/22 19:15) Comprehensive Metabolic Panel (08/27/22 19:15) Protime With Inr (08/27/22 19:15) Partial Thromboplastin Time (08/27/22 19:15) Ua Culture If Indicated (08/27/22 19:15) Ed Iv/Invasive Line Start (08/27/22 19:15) Lactated Ringers (Lr 1000 Ml Iv Solution (08/27/22 19:15) Lidocaine 2% (Urojet) (Xylocaine Urojet) (08/27/22 19:15) Fentanyl Inj (Sublimaze Injection) (08/27/22 19:15) Ed Admission (Communication) (08/27/22 19:22) Medications Given in ED Current Medications Medications Dose Ordered Sig/Margo Route Start Time Stop Time Status Last Admin Dose Admin Lactated Ringer's 1,000 ml @ 0 mls/hr Q0M ONCE IV 08/27/22 19:15 08/27/22 19:17 DC 08/27/22 19:48 0 MLS/HR Lidocaine HCl 10 ml ONCE ONCE TOP 08/27/22 19:15 08/27/22 19:17 DC 08/27/22 19:48 10 ML Vital Signs/I&O 08/27/22 18:25 Pulse 61 Resp 17 B/P (MAP) 183/106 (131) Pulse Ox 95 O2 Delivery Room Air Blood Pressure Mean: 131 Progress Progress Note : Progress Note NO DETERIORATION IN PT'S CONDITION DURING ER STAY Diagnostic Imaging Comments XRAYS--PER RADIOLOGIST REPORTS AT 1934 PELVIS / RIGHT HIP-- FINDINGS: There is a mildly superiorly displaced and impacted fracture of the right femoral neck. Femoral head is well-seated in the acetabulum. No other fractures are seen. There is degenerative change in the pubic symphysis and sacroiliac joints bilaterally. IMPRESSION: 1. Mildly displaced and impacted fracture of the right femoral neck. RIGHT FEMUR-- FINDINGS: There is a subcapital fracture of the right femur. There is no other fracture or dislocation. Soft tissues are unremarkable. IMPRESSION: Slightly displaced and mildly comminuted subcapital fracture of the right femur. CXR--FINDINGS: Lung volumes are normal. There are interstitial opacities in the lungs, may be due to chronic fibrotic disease. There is no pleural effusion or pneumothorax. The cardiac silhouette is normal in size. IMPRESSION: 1. Interstitial prominence in the lung bases, may be due to chronic fibrotic disease. Reviewed: Reviewed by Md Departure Communication (Admissions) 1913--SPOKE WITH DR. ORTEGA, ORTHOPEDIC SURGEON, ADVISES TO ADMIT TO HOSPITALIST 1915--SPOKE WITH DR. RUIZ, HOSPITALIST, ACCEPTS PT FOR ADMIT. SHE WILL DO ADMIT ORDERS Impression Primary Impression: Closed right hip fracture Additional Impression: Urinary tract infection Disposition: ADMITTED INPATIENT Condition: Stable Admissions Decision to Admit Reason: Admit from ER (Trauma) Decision to Admit/Date: Aug 27, 2022 Time/Decision to Admit Time: 19:15 Departure-Patient Inst. Referrals: GABBIE MONTES MD (PCP/Family) Primary Care Physician ACE PIÑA DO Aug 27, 2022 18:39
[2022-08-27] MEDS ORDERED: fentaNYL INJ 100 MCG/2 ML AMP IVP STA (19:15)
[2022-08-27] MEDS ORDERED: LIDOCAINE UROJET 2% GEL 10 ML PKG TOP ONE (19:15)
[2022-08-27] MEDS ORDERED: LACTATED RINGERS 1,000 ML IV ONE (19:15)
[2022-08-27 19:23] LABS: ALBUMIN 4.3 GM/DL (3.2-4.5)
[2022-08-27 19:24] LABS: CALCIUM 9.2 MG/DL (8.5-10.1)
[2022-08-27 19:26] LABS: BASOPHILS # (AUTO) 0.1 10^3/uL (0.0-0.1); BASOPHILS % (AUTO) 1 % (0-10); EOSINOPHILS # (AUTO) 0.5 10^3/uL (0.0-0.3); EOSINOPHILS % (AUTO) 6 % (0-10); HEMATOCRIT 37 % (35-52); HEMOGLOBIN 11.9 g/dL (11.5-16.0); LYMPHOCYTES # (AUTO) 2.1 10^3/uL (1.0-4.0); LYMPHOCYTES % (AUTO) 26 % (12-44); MEAN CORPUSCULAR HEMOGLOBIN 33 pg (25-34); MEAN CORPUSCULAR HGB CONC 32 g/dL (32-36); MEAN CORPUSCULAR VOLUME 101 fL (80-99); MEAN PLATELET VOLUME 9.2 fL (9.0-12.2); MONOCYTES # (AUTO) 0.6 10^3/uL (0.0-1.0); MONOCYTES % (AUTO) 8 % (0-12); NEUTROPHILS # (AUTO) 4.6 10^3/uL (1.8-7.8); NEUTROPHILS % (AUTO) 59 % (42-75); PLATELET COUNT 193 10^3/uL (130-400); WHITE BLOOD COUNT 7.8 10^3/uL (4.3-11.0)
--- NOTE | 2022-08-27 19:26 | Diagnostic Imaging Report ---
INDICATION: Pain. Four views were obtained. FINDINGS: There is a subcapital fracture of the right femur. There is no other fracture or dislocation. Soft tissues are unremarkable. IMPRESSION: Slightly displaced and mildly comminuted subcapital fracture of the right femur. Dictated by: Dictated on workstation # [id number]
[2022-08-27 19:27] LABS: BILIRUBIN,TOTAL 0.5 MG/DL (0.1-1.0)
--- NOTE | 2022-08-27 19:27 | Diagnostic Imaging Report ---
HISTORY: Fall, hip fracture TECHNIQUE: Frontal view of the chest COMPARISON: 12/22/2021 FINDINGS: Lung volumes are normal. There are interstitial opacities in the lungs, may be due to chronic fibrotic disease. There is no pleural effusion or pneumothorax. The cardiac silhouette is normal in size. IMPRESSION: 1. Interstitial prominence in the lung bases, may be due to chronic fibrotic disease. Dictated by: Dictated on workstation # [id number]
--- NOTE | 2022-08-27 19:28 | Diagnostic Imaging Report ---
HISTORY: Right hip pain TECHNIQUE: Frontal view of the pelvis. Frontal and lateral views of the right hip COMPARISON: None FINDINGS: There is a mildly superiorly displaced and impacted fracture of the right femoral neck. Femoral head is well-seated in the acetabulum. No other fractures are seen. There is degenerative change in the pubic symphysis and sacroiliac joints bilaterally. IMPRESSION: 1. Mildly displaced and impacted fracture of the right femoral neck. Dictated by: Dictated on workstation # [id number]
[2022-08-27 19:29] LABS: CREATININE SERUM 0.81 MG/DL (0.60-1.30)
[2022-08-27 19:37] LABS: INR 0.9 (0.8-1.4); PROTHROMBIN TIME PATIENT 12.8 SEC (12.2-14.7)
[2022-08-27 20:02] LABS: BILIRUBIN,URINE NEGATIVE (NEGATIVE); CLARITY,URINE CLEAR; COLOR,URINE YELLOW; GLUCOSE, URINE (UA) NEGATIVE (NEGATIVE); KETONES,URINE TRACE (NEGATIVE); LEUKOCYTE ESTERASE ,URINE TRACE (NEGATIVE); NITRITE,URINE POSITIVE (NEGATIVE); PROTEIN,URINE NEGATIVE (NEGATIVE)
[2022-08-27 20:12] LABS: BACTERIA,URINE LARGE /HPF; RBC,URINE RARE /HPF
[2022-08-27] MEDS ORDERED: cefTRIAXone 1 GM PRE-MIX 50 ML IV ONE (20:15)
[2022-08-27] MEDS ORDERED: diphenhydrAMINE 25 MG TAB (BENADRYL) PO PRN (21:00)
[2022-08-27] MEDS ORDERED: polyethylene glycoL POWDER 17 GM (MIRALAX) PACK PO PRN (21:00)
[2022-08-27] MEDS ORDERED: MELATONIN 3 MG TABLET PO PRN (21:00)
[2022-08-27] MEDS ORDERED: LORazepam 0.5 MG (ATIVAN) TABLET PO PRN (21:00)
[2022-08-27] MEDS ORDERED: CALCIUM CARBONATE 500 MG (TUMS) TAB.CHEW PO PRN (21:00)
[2022-08-27] MEDS ORDERED: ONDANSETRON 4 MG/2 ML (SDV) Z0FRAN IV PRN (21:00)
[2022-08-27] MEDS ORDERED: ONDANSETRON 4 MG (ZOFRAN) ORAL DISSOLVE TAB PO PRN (21:00)
[2022-08-27] MEDS ORDERED: BISACODYL 10 MG SUPP (DULCOLAX) PR PRN (21:00)
[2022-08-27] MEDS ORDERED: cloNIDine 0.1 MG (CATAPRES) TAB PO PRN (21:00)
[2022-08-27] MEDS ORDERED: MILK OF MAGNESIA 400 MG/5 ML 30 ML UDC PO PRN (21:00)
[2022-08-27] MEDS ORDERED: ANTACID SUSP 30 ML UDC (MYLANTA) PO PRN (21:00)
[2022-08-27] MEDS ORDERED: LACTULOSE SYRUP 10GM/15ML (ENULOSE) 30ML UDC PO PRN (21:00)
[2022-08-27] MEDS ORDERED: diphenhydrAMINE 50 MG/ML INJ (BENADRYL) IVP PRN (21:00)
[2022-08-27] MEDS: ACETAMINOPHEN 325 MG TABLET PO PRN (22:34)
[2022-08-27] MEDS: DOCUSATE SODIUM 100 MG (COLACE) CAP PO SCH (22:34)
[2022-08-27] MEDS: NS IV 1000 ML 1,000 ML IV SCH (22:34)
[2022-08-27] MEDS: SENNOSIDES 8.6 MG (SENOKOT) TAB PO SCH (22:58)
[2022-08-28] VITALS (17 sets, daily range): BP systolic 130–183; BP diastolic 60–106
[2022-08-28] MEDS ORDERED: RT-ALBUTEROL SULF 2.5 MG/3 ML PRE-MIX VIAL INH PRN (00:15)
[2022-08-28] MEDS: morphine INJ 4 MG/ML 1 ML (VIAL/SYRINGE) IV PRN ×3 (01:13→12:40)
[2022-08-28 05:50] LABS: BASOPHILS % (AUTO) 0 % (0-10); EOSINOPHILS # (AUTO) 0.2 10^3/uL (0.0-0.3); EOSINOPHILS % (AUTO) 2 % (0-10); HEMATOCRIT 33 % (35-52); LYMPHOCYTES # (AUTO) 1.6 10^3/uL (1.0-4.0); LYMPHOCYTES % (AUTO) 19 % (12-44); MEAN CORPUSCULAR HEMOGLOBIN 33 pg (25-34); MEAN CORPUSCULAR HGB CONC 34 g/dL (32-36); MEAN CORPUSCULAR VOLUME 99 fL (80-99); MEAN PLATELET VOLUME 9.1 fL (9.0-12.2); MONOCYTES # (AUTO) 0.6 10^3/uL (0.0-1.0); MONOCYTES % (AUTO) 7 % (0-12); NEUTROPHILS # (AUTO) 5.6 10^3/uL (1.8-7.8); NEUTROPHILS % (AUTO) 71 % (42-75); PLATELET COUNT 151 10^3/uL (130-400)
[2022-08-28 06:07] LABS: ALBUMIN 3.4 GM/DL (3.2-4.5); BILIRUBIN,TOTAL 0.7 MG/DL (0.1-1.0); CALCIUM 8.4 MG/DL (8.5-10.1); CREATININE SERUM 0.73 MG/DL (0.60-1.30); POTASSIUM 3.9 MMOL/L (3.6-5.0); TOTAL PROTEIN 5.6 GM/DL (6.4-8.2)
[2022-08-28] MEDS: DOCUSATE SODIUM 100 MG (COLACE) CAP PO SCH ×3 (07:52→20:34)
[2022-08-28] MEDS: SENNOSIDES 8.6 MG (SENOKOT) TAB PO SCH ×3 (07:53→21:11)
[2022-08-28] MEDS: NS IV 1000 ML 1,000 ML IV SCH ×2 (08:05→21:16)
--- NOTE | 2022-08-28 08:13 | Consultation-Cardiology ---
HPI-Cardiology Cardiology Consultation: Date of Consultation 08/28/22 Time Seen by a Provider: 08:20 Date of Admission 08-27-22 Attending Physician Remy Blake MD Admitting Physician Admitting Physician: Cortney Dozier DO Attending Physician: Cortney Dozier DO Consulting Physician Fidelia Welsh MD HPI: Chief Complaint: Cardiac clearance Ms. Simmons is an 81 yr old female admitted to 413 from the ED d/t a non- syncopal fall resulting in a right hip fracture. Her is at the bedside. He reports she caught her foot on the threshold of the door and fell. She denies any c/o CP, SOB, palpitations, syncope or near syncope. No c/o LE swelling. No c/o n/v/d. No c/o fever or chills. Review of Systems-Cardiology Review of Systems Constitutional: No chills, No fever, No lightheadedness Eyes: No vision change Ears/Nose/Throat: No epistaxis, No recent hearing loss Respiratory: As described under HPI Cardiovascular: As described under HPI Gastrointestinal: No constipation, No diarrhea, No nausea, No vomiting Genitourinary: No dysuria, No hematuria Musculoskeletal: other (right hip pain) Skin: No rash on exposed areas, No ulcerations on exposed areas Psychiatric/Neurological: No anxiety, No depression, No seizure, No focal weakness, No syncope Hematologic: No bleeding abnormalities BAP-Tajntv-Dyrhaf Hx Patient Social History Smoking Status: Never a Smoker Have you traveled recently?: No Alcohol Use?: Yes Pt feels they are or have been: No Immunizations Up To Date Tetanus Booster (TDap): Less than 5yrs Date of Pneumonia Vaccine: Nov 05, 2010 Date of Influenza Vaccine: Sep 01, 2013 Past Medical History PMH As described under Assessment. Family Medical History Family Medical History: She reports her grandfather had CAD. She reports a grandmother who had a stroke. Family History: 03 FATHER Family history: Arthritis Hearing loss 03 MOTHER Family history: Arthritis Family history: Diabetes mellitus AUNT (PATERNAL) Cancer Family history: Breast disease AUNT (PATERNAL) Cancer Family history: Breast disease GRANDFATEHR (MATERNAL) Chest pain Family history: Cardiovascular disease Family history: Coronary thrombosis Family history: Hypertension Myocardial infarction GRANDMOTHER (MATERNAL) Stroke Allergies and Home Medications Allergies Coded Allergies: No Known Drug Allergies (Unverified , 06/02/13) Patient Home Medication List Aspirin (Aspirin 81 Mg Chew Tab) 81 Mg Chew, 81 MG PO DAILY, (Reported) Entered as Reported by: STEVIE LOUISE on 06/04/13 1427 Ca Carbonate/Vitamin D3/Vit K (Viactiv Soft Chew Tablet) 1 Each Tab.chew, 1 TAB PO BID, (Reported) Entered as Reported by: MARU MCLEAN on 11/05/13 1112 Clopidogrel Bisulfate (Plavix 75 Mg) 75 Mg Tablet, 75 MG PO DAILY, (Reported) Entered as Reported by: STEVIE LOUISE on 06/04/13 1427 Hydrocortisone/Oatmeal/Aloe/E (Hydrocortisone 1% Cream) 28.4 Gm Cream.gm., 1 GM TOP TID PRN for RASH, (Reported) Entered as Reported by: SUDEEP PEREZ on 06/02/13 1639 Lisinopril (Prinivil) 2.5 Mg Tablet, 2.5 MG PO DAILY, (Reported) Entered as Reported by: STEVIE LOUISE on 06/04/13 1427 Metoprolol Succinate (Toprol Xl 25MG) 25 Mg Tab.sr.24h, 25 MG PO DAILY, (Reported) Entered as Reported by: STEVIE LOUISE on 06/04/13 1427 Nitrofurantoin Monohyd/M-Cryst (Macrobid 100 mg Capsule) 100 Mg Capsule, 1 TAB PO BID Prescribed by: ELSY MORALES on 12/22/21 1336 Simvastatin (Simvastatin) 40 Mg Tablet, 40 MG PO DAILY, (Reported) Entered as Reported by: HERNÁN WINKLER on 11/04/13 205 Timolol Maleate/Dorzolam Hcl (Dorzolamide-Timolol Eye Drops) 10 Ml Drops, 1 DROP OU BID, (Reported) Entered as Reported by: SUDEEP PEREZ on 06/02/13 1639 Travoprost (Travatan Z) 5 Ml Drops, 1 DROP OD HS, (Reported) Entered as Reported by: MARU MCLEAN on 11/05/13 1106 [[id number]] , 2.5 MG PO BID Prescribed by: SONNY KNIGHT on 11/06/13 0958 Physical Exam-Cardiology Physical Exam Vital Signs/I&O 08/28/22 08/28/22 08/28/2208/28/22 01:00 03:42 07:13 07:57 Temp 37.0 36.6 Pulse 72 61 62 61 Resp 18 16 B/P (MAP) 130/61 (84) 146/70 (95) Pulse Ox 97 97 O2 Delivery Room Air 08/28/22 08/28/22 08/28/22 08/28/22 08:00 09:03 09:49 10:47 Temp 36.6 37.2 Pulse 66 Resp 18 B/P (MAP) 130/60 (83) Pulse Ox 97 96 O2 Delivery Room Air Room Air FiO2 97 08/28/22 12:34 Pulse 72 08/28/22 00:00 Intake Total 1450 ml Output Total 800 ml Balance 650 ml Capillary Refill : Less Than 3 Seconds Constitutional: AAO x 3, well-developed, well-nourished HEENT: PERRL, hearing is well preserved, oral hygience is good Neck: No carotid bruit; carotid pulses are 2 + bilaterally Respiratory: No accessory muscle use, No respiratory distress; chest expansion is symmetric, chest is bilaterally symmetric, lungs clear to auscultation Cardiovascular: regular rate-rhythm; No JVD; S1 and S2 Gastrointestinal: No tender; soft, round, audible bowel sounds Extremities: other (mild R LE swelling) Neurologic/Psychiatric: grossly intact (right leg not manipulated d/t hip fracture; able to move all other extremities; AAOx3) Skin: No rash on exposed areas, No ulcerations on exposed areas Data Review Labs Laboratory Tests 08/27/22 18:29: White Blood Count 7.8, Red Blood Count 3.65L, Hemoglobin 11.9, Hematocrit 37, Mean Corpuscular Volume 101H, Mean Corpuscular Hemoglobin 33, Mean Corpuscular Hemoglobin Concent 32, Red Cell Distribution Width 12.4, Platelet Count 193, Mean Platelet Volume 9.2, Immature Granulocyte % (Auto) 1, Neutrophils (%) (Auto) 59, Lymphocytes (%) (Auto) 26, Monocytes (%) (Auto) 8, Eosinophils (%) (Auto) 6, Basophils (%) (Auto) 1, Neutrophils # (Auto) 4.6, Lymphocytes # (Auto) 2.1, Monocytes # (Auto) 0.6, Eosinophils # (Auto) 0.5H, Basophils # (Auto) 0.1, Immature Granulocyte # (Auto) 0.0, Prothrombin Time 12.8, INR Comment 0.9, Activated Partial Thromboplast Time 31, Sodium Level 137, Potassium Level 4.0, Chloride Level 100, Carbon Dioxide Level 26, Anion Gap 11, Blood Urea Nitrogen 16, Creatinine 0.81, Estimat Glomerular Filtration Rate 72, BUN/Creatinine Ratio 20, Glucose Level 75, Calcium Level 9.2, Corrected Calcium 9.0, Total Bilirubin 0.5, Aspartate Amino Transf (AST/SGOT) 27, Alanine Aminotransferase (ALT/SGPT) 21, Alkaline Phosphatase 76, Total Protein 7.0, Albumin 4.3 08/27/22 19:55: Urine Color YELLOW, Urine Clarity CLEAR, Urine pH 6.0, Urine Specific [place] 1.020, Urine Protein NEGATIVE, Urine Glucose (UA) NEGATIVE, Urine Ketones TRACEH , Urine Nitrite POSITIVEH, Urine Bilirubin NEGATIVE, Urine Urobilinogen 0.2, Urine Leukocyte Esterase TRACEH, Urine RBC (Auto) TRACE-IH, Urine RBC RARE, Urine WBC 2-5, Urine Crystals NONE, Urine Bacteria LARGEH, Urine Casts NONE, Urine Mucus NEGATIVE, Urine Culture Indicated YES 08/28/22 05:00: White Blood Count 8.0, Red Blood Count 3.30L, Hemoglobin 11.0L, Hematocrit 33L, Mean Corpuscular Volume 99, Mean Corpuscular Hemoglobin 33, Mean Corpuscular Hemoglobin Concent 34, Red Cell Distribution Width 12.2, Platelet Count 151, Mean Platelet Volume 9.1, Immature Granulocyte % (Auto) 1, Neutrophils (%) (Auto) 71, Lymphocytes (%) (Auto) 19, Monocytes (%) (Auto) 7, Eosinophils (%) (Auto) 2, Basophils (%) (Auto) 0, Neutrophils # (Auto) 5.6, Lymphocytes # (Auto) 1.6, Monocytes # (Auto) 0.6, Eosinophils # (Auto) 0.2, Basophils # (Auto) 0.0, Immature Granulocyte # (Auto) 0.0 08/28/22 05:25: Sodium Level 133L, Potassium Level 3.9, Chloride Level 102, Carbon Dioxide Level 22, Anion Gap 9, Blood Urea Nitrogen 13, Creatinine 0.73, Estimat Glomerular Filtration Rate 82, BUN/Creatinine Ratio 18, Glucose Level 102, Calcium Level 8.4L, Corrected Calcium 8.9, Total Bilirubin 0.7, Aspartate Amino Transf (AST/SGOT) 24, Alanine Aminotransferase (ALT/SGPT) 21, Alkaline Phosphatase 52, Total Protein 5.6L, Albumin 3.4 Microbiology 08/27/22 Urine Culture - Preliminary, Resulted Probable Klebsiella/Enterobact Radiology NAME: [facility] REC#: [id number] PT STATUS: ADM IN : 1940 PHYSICIAN: ACE PIÑA DO ADMIT DATE: 08/27/22 Signed Date of Exam:08/27/22 CHEST 1 VIEW, AP/PA ONLY HISTORY: Fall, hip fracture TECHNIQUE: Frontal view of the chest COMPARISON: 12/22/2021 FINDINGS: Lung volumes are normal. There are interstitial opacities in the lungs, may be due to chronic fibrotic disease. There is no pleural effusion or pneumothorax. The cardiac silhouette is normal in size. IMPRESSION: 1. Interstitial prominence in the lung bases, may be due to chronic fibrotic disease. Dictated by: Dictated on workstation # [id number] Dict: 08/27/[id number] Trans: 08/27/222113 [facility] [id number] Interpreted by: BRENNA MONSON MD Electronically signed by: BRENNA MONSON MD 08/27/222113 NAME: [facility] REC#: [id number] PT STATUS: ADM IN : 1940 PHYSICIAN: ACE PIÑA DO ADMIT DATE: 08/27/22 Signed Date of Exam:08/27/22 PELVIS WITH RIGHT HIP 2-3VIEWS HISTORY: Right hip pain TECHNIQUE: Frontal view of the pelvis. Frontal and lateral views of the right hip COMPARISON: None FINDINGS: There is a mildly superiorly displaced and impacted fracture of the right femoral neck. Femoral head is well-seated in the acetabulum. No other fractures are seen. There is degenerative change in the pubic symphysis and sacroiliac joints bilaterally. IMPRESSION: 1. Mildly displaced and impacted fracture of the right femoral neck. Dictated by: Dictated on workstation # [id number] Dict: 08/27/221920 Trans: 08/27/222116 [facility] [id number] Interpreted by: BRENNA MONSON MD Electronically signed by: BRENNA MONSON MD 08/27/222116 A/P-Cardiology Assessment/Admission Diagnosis Right hip fracture post non-syncopal fall - awaiting surgical repair by Dr. Wright ?UTI - management per medical services Coronary artery disease - with a history of anterior wall myocardial infarction in June 2013, treated with primary angioplasty and stenting of the mid left anterior descending artery with Promus Element 2.25 x 32 mm stent. - - - Subsequently, on 11/04/13, following presentation with NSTEMI she underwent stenting of LCXOM with Mini Vision 2x28mm stent. 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 No pseudoaneurysm on u/s of 11/11/13 - MPI of 05/17/20 showed no evidence for myocardial ischemia or infarction. 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 - Echocardiogram of February 18, 2019 showed concentric LVH. LVEF 55-60%. LA is mildly dilated. PASP approx 25 mmHg Hyperlipidemia - statin tx - followed by Dr. Blake (PCP) Chronic joint pain - managed by PCP Carotid dz - Mild bilat carotid disease per u/s of June 2020 Discussion and Recomendations S/P right hip fracture d/t a non-syncopal fall - awaiting surgical repair by Dr. Wright EKG this morning Continue home medications including ASA, BB and statin d/t known h/o CAD Monitor lab closely Further recs will be based on her hospital course We would like to thank Dr. Dozier for this consult Clinical Quality Measures DVT/VTE Risk/Contraindication: Contraindications-Pharm: Other *list below* Other: surgery SONNY KNIGHT Aug 28, 2022 08:13
--- NOTE | 2022-08-28 08:32 | Consultation - Ortho ---
Consult - Ortho Subjective Date of Exam 08/28/22 Chief Complaint Right Hip Injury HPI/Events since last exam fall from standing height, ER evaluation demonstrated displaced right femoral neck fracture, I was asked to evaluate and manage the fracture Medical, Surgical History see admit Social History see admit Family History see admit Review of Systems - Allergies: Coded Allergies: No Known Drug Allergies (Unverified , 06/02/13) Home Meds Active Scripts Nitrofurantoin Monohyd/M-Cryst (Macrobid 100 mg Capsule) 100 Mg Capsule, 1 TAB PO BID for 7 Days, #14 CAP 0 Refills Prov:ELSY MORALES Angel 12/22/21 [Lisinopril] (Zestril) No Conflict Check, 2.5 MG PO BID, #60 5 Refills Prov:SONNY KNIGHT 11/06/13 Reported Medications Ca Carbonate/Vitamin D3/Vit K (Viactiv Soft Chew Tablet) 1 Each Tab.chew, 1 TAB PO BID 11/05/13 Travoprost (Travatan Z) 5 Ml Drops, 1 DROP OD HS 11/05/13 Simvastatin (Simvastatin) 40 Mg Tablet, 40 MG PO DAILY 11/04/13 Lisinopril (Prinivil) 2.5 Mg Tablet, 2.5 MG PO DAILY 06/04/13 Metoprolol Succinate (Toprol Xl 25MG) 25 Mg Tab.sr.24h, 25 MG PO DAILY 06/04/13 Clopidogrel Bisulfate (Plavix 75 Mg) 75 Mg Tablet, 75 MG PO DAILY 06/04/13 Aspirin (Aspirin 81 Mg Chew Tab) 81 Mg Chew, 81 MG PO DAILY 06/04/13 Timolol Maleate/Dorzolam Hcl (Dorzolamide-Timolol Eye Drops) 10 Ml Drops, 1 DROP OU BID 06/02/13 Hydrocortisone/Oatmeal/Aloe/E (Hydrocortisone 1% Cream) 28.4 Gm Cream.gm., 1 GM TOP TID PRN for RASH APPLY TO AFFECTED AREA NEEDED FOR RASH AND ITCHING 06/02/13 Objective Exam Right Leg: Mild shortening, some external rotation, +DF of ankle, sensation grossly intact to light touch Vital Signs Vital Signs Date Time Temp Pulse Resp B/P (MAP) Pulse Ox O2 Delivery O2 Flow Rate FiO2 08/28/22 07:57 36.6 61 16 146/70 (95) 97 08/28/22 07:13 62 08/28/22 03:42 37.0 61 18 130/61 (84) 97 Room Air 08/28/22 01:00 72 08/28/22 00:22 37.1 73 18 151/72 (98) 95 Room Air 08/28/22 00:00 61 95 21 08/27/22 23:37 Room Air 08/27/22 22:12 77 08/27/22 20:30 Room Air 08/27/22 20:20 77 13 166/89 96 Room Air 08/27/22 18:25 61 17 183/106 (131) 95 Room Air I & O 08/28/22 07:00 Intake Total 1450 ml Output Total 1600 ml Balance -150 ml Lab Results Laboratory Tests 08/27/22 18:29: White Blood Count 7.8, Red Blood Count 3.65L, Hemoglobin 11.9, Hematocrit 37, Me an Corpuscular Volume 101H, Mean Corpuscular Hemoglobin 33, Mean Corpuscular Hemoglobin Concent 32, Red Cell Distribution Width 12.4, Platelet Count 193, Mean Platelet Volume 9.2, Immature Granulocyte % (Auto) 1, Neutrophils (%) (Auto) 59, Lymphocytes (%) (Auto) 26, Monocytes (%) (Auto) 8, Eosinophils (%) (Auto) 6, Basophils (%) (Auto) 1, Neutrophils # (Auto) 4.6, Lymphocytes # (Auto) 2.1, Monocytes # (Auto) 0.6, Eosinophils # (Auto) 0.5H, Basophils # (Auto) 0.1, Immature Granulocyte # (Auto) 0.0, Prothrombin Time 12.8, INR Comment 0.9, Activated Partial Thromboplast Time 31, Sodium Level 137, Potassium Level 4.0, Chloride Level 100, Carbon Dioxide Level 26, Anion Gap 11, Blood Urea Nitrogen 16, Creatinine 0.81, Estimat Glomerular Filtration Rate 72, BUN/Creatinine Ratio 20, Glucose Level 75, Calcium Level 9.2, Corrected Calcium 9.0, Total Bilirubin 0.5, Aspartate Amino Transf (AST/SGOT) 27, Alanine Aminotransferase (ALT/SGPT) 21, Alkaline Phosphatase 76, Total Protein 7.0, Albumin 4.3 08/27/22 19:55: Urine Color YELLOW, Urine Clarity CLEAR, Urine pH 6.0, Urine Specific [place] 1.020, Urine Protein NEGATIVE, Urine Glucose (UA) NEGATIVE, Urine Ketones TRACEH , Urine Nitrite POSITIVEH, Urine Bilirubin NEGATIVE, Urine Urobilinogen 0.2, Urine Leukocyte Esterase TRACEH, Urine RBC (Auto) TRACE-IH, Urine RBC RARE, Urine WBC 2-5, Urine Crystals NONE, Urine Bacteria LARGEH, Urine Casts NONE, Urine Mucus NEGATIVE, Urine Culture Indicated YES 08/28/22 05:00: White Blood Count 8.0, Red Blood Count 3.30L, Hemoglobin 11.0L, Hematocrit 33L, Mean Corpuscular Volume 99, Mean Corpuscular Hemoglobin 33, Mean Corpuscular Hemoglobin Concent 34, Red Cell Distribution Width 12.2, Platelet Count 151, Mean Platelet Volume 9.1, Immature Granulocyte % (Auto) 1, Neutrophils (%) (Auto) 71, Lymphocytes (%) (Auto) 19, Monocytes (%) (Auto) 7, Eosinophils (%) (Auto) 2, Basophils (%) (Auto) 0, Neutrophils # (Auto) 5.6, Lymphocytes # (Auto) 1.6, Monocytes # (Auto) 0.6, Eosinophils # (Auto) 0.2, Basophils # (Auto) 0.0, Immature Granulocyte # (Auto) 0.0 08/28/22 05:25: Sodium Level 133L, Potassium Level 3.9, Chloride Level 102, Carbon Dioxide Level 22, Anion Gap 9, Blood Urea Nitrogen 13, Creatinine 0.73, Estimat Glomerular Filtration Rate 82, BUN/Creatinine Ratio 18, Glucose Level 102, Calcium Level 8.4L, Corrected Calcium 8.9, Total Bilirubin 0.7, Aspartate Amino Transf (AST/SGOT) 24, Alanine Aminotransferase (ALT/SGPT) 21, Alkaline Phosphatase 52, Total Protein 5.6L, Albumin 3.4 Microbiology 08/27/22 Urine Culture - Preliminary, Resulted Probable Klebsiella/Enterobact Imaging 2 views of the right hip dated 08/27/22 were reviewed from PACS and demonstrated a displaced femoral neck fracture on the right Assessment and Plan Assessment Right Femoral Neck Fracture Problem List Right Femoral Neck Fracture Plan I have recommend prosthetic replacement of right femoral neck fracture. Will await cardiology recommendations and medical optimization. Will tentatively place on schedule for tomorrow. Final Diagonsis Right Femoral Neck Fracture Level of the visit: Level 3 (preop global) HUNTER MARCANO MD Aug 28, 2022 08:32
--- NOTE | 2022-08-28 09:54 | Consultation-Cardiology ---
HPI-Cardiology Cardiology Consultation: Date of Consultation 08/28/22 Time Seen by a Provider: 09:30 Date of Admission Attending Physician Remy Blake MD Admitting Physician Admitting Physician: Cortney Dozier DO Attending Physician: Cortney Dozier DO Consulting Physician LEN CAMPOS MD, MA, FACP, FACC, FSCAI, CCDS Physician requesting Card consult: Dr Dozier HPI: Chief Complaint: Reason of Card consult: Pre-op cardiac eval Ms. Aguirre is an 81 yr old female admitted to 413 from the ED d/t a non-syncopal fall resulting in a right hip fracture. Her is at the bedside. He reports she caught her foot on the threshold of the door and fell. She denies any c/o CP, SOB, palpitations, syncope or near syncope. No c/o LE swelling. No c/o n/v/d. No c/o fever or chills. Review of Systems-Cardiology Review of Systems Constitutional: No chills, No fever, No lightheadedness Eyes: No vision change Ears/Nose/Throat: No epistaxis, No recent hearing loss Respiratory: As described under HPI Cardiovascular: As described under HPI Gastrointestinal: No constipation, No diarrhea, No nausea, No vomiting Genitourinary: No dysuria, No hematuria Musculoskeletal: other (right hip pain) Skin: No rash on exposed areas, No ulcerations on exposed areas Psychiatric/Neurological: No anxiety, No depression, No seizure, No focal weakness, No syncope Hematologic: No bleeding abnormalities [id number] Hx Patient Social History Smoking Status: Never a Smoker Have you traveled recently?: No Alcohol Use?: Yes Pt feels they are or have been: No Immunizations Up To Date Tetanus Booster (TDap): Less than 5yrs Date of Pneumonia Vaccine: Nov 05, 2010 Date of Influenza Vaccine: Sep 01, 2013 Past Medical History PMH As described under Assessment. Family Medical History Family Medical History: She reports her grandfather had CAD. She reports a grandmother who had a stroke. Family History: Cancer AUNT (PATERNAL) AUNT (PATERNAL) Chest pain GRANDFATEHR (MATERNAL) Family history: Arthritis 03 FATHER 03 MOTHER Family history: Breast disease AUNT (PATERNAL) AUNT (PATERNAL) Family history: Cardiovascular disease GRANDFATEHR (MATERNAL) Family history: Coronary thrombosis GRANDFATEHR (MATERNAL) Family history: Diabetes mellitus 03 MOTHER Family history: Hypertension GRANDFATEHR (MATERNAL) Hearing loss 03 FATHER Myocardial infarction GRANDFATEHR (MATERNAL) Stroke GRANDMOTHER (MATERNAL) Allergies and Home Medications Allergies Coded Allergies: No Known Drug Allergies (Unverified , 06/02/13) Patient Home Medication List Home Medication List Reviewed: Yes Aspirin (Aspirin 81 Mg Chew Tab) 81 Mg Chew, 81 MG PO DAILY, (Reported) Entered as Reported by: STEVIE LOUISE on 06/04/13 1427 Ca Carbonate/Vitamin D3/Vit K (Viactiv Soft Chew Tablet) 1 Each Tab.chew, 1 TAB PO BID, (Reported) Entered as Reported by: MARU MCLEAN on 11/05/13 1112 Clopidogrel Bisulfate (Plavix 75 Mg) 75 Mg Tablet, 75 MG PO DAILY, (Reported) Entered as Reported by: STEVIE LOUISE on 06/04/13 1427 Hydrocortisone/Oatmeal/Aloe/E (Hydrocortisone 1% Cream) 28.4 Gm Cream.gm., 1 GM TOP TID PRN for RASH, (Reported) Entered as Reported by: SUDEEP PEREZ on 06/02/13 1639 Lisinopril (Prinivil) 2.5 Mg Tablet, 2.5 MG PO DAILY, (Reported) Entered as Reported by: STEVIE LOUISE on 06/04/13 1427 Metoprolol Succinate (Toprol Xl 25MG) 25 Mg Tab.sr.24h, 25 MG PO DAILY, (Reported) Entered as Reported by: STEVIE LOUISE on 06/04/13 1427 Nitrofurantoin Monohyd/M-Cryst (Macrobid 100 mg Capsule) 100 Mg Capsule, 1 TAB PO BID Prescribed by: ELSY MORALES on 12/22/21 1336 Simvastatin (Simvastatin) 40 Mg Tablet, 40 MG PO DAILY, (Reported) Entered as Reported by: HERNÁN WINKLER on 11/04/13 205 Timolol Maleate/Dorzolam Hcl (Dorzolamide-Timolol Eye Drops) 10 Ml Drops, 1 DROP OU BID, (Reported) Entered as Reported by: SUDEEP PEREZ on 06/02/13 1639 Travoprost (Travatan Z) 5 Ml Drops, 1 DROP OD HS, (Reported) Entered as Reported by: MARU MCLEAN on 11/05/13 1106 [[id number]] , 2.5 MG PO BID Prescribed by: SONNY KNIGHT on 11/06/13 0958 Physical Exam-Cardiology Physical Exam Vital Signs/I&O 08/27/22 08/27/22 08/28/22 08/28/22 22:12 23:37 00:00 00:22 Temp 37.1 Pulse 77 61 73 Resp 18 B/P (MAP) 151/72 (98) Pulse Ox 95 95 O2 Delivery Room Air Room Air FiO2 21 08/28/22 08/28/22 08/28/22 08/28/22 01:00 03:42 07:13 07:57 Temp 37.0 36.6 Pulse 72 61 62 61 Resp 18 16 B/P (MAP) 130/61 (84) 146/70 (95) Pulse Ox 97 97 O2 Delivery Room Air 08/28/22 08/28/22 08:00 09:03 Temp 36.6 Pulse Ox 97 O2 Delivery Room Air 08/28/22 00:00 Intake Total 1450 ml Output Total 800 ml Balance 650 ml Capillary Refill : Less Than 3 Seconds Constitutional: AAO x 3, well-developed, well-nourished HEENT: PERRL, hearing is well preserved, oral hygience is good Neck: No carotid bruit; carotid pulses are 2 + bilaterally Respiratory: No accessory muscle use, No respiratory distress; chest expansion is symmetric, chest is bilaterally symmetric, lungs clear to auscultation Cardiovascular: regular rate-rhythm; No JVD; S1 and S2 Gastrointestinal: No tender; soft, round, audible bowel sounds Extremities: other (mild R LE swelling) Neurologic/Psychiatric: grossly intact (right leg not manipulated d/t hip fracture; able to move all other extremities; AAOx3) Skin: No rash on exposed areas, No ulcerations on exposed areas Data Review Labs Laboratory Tests 08/27/22 18:29: White Blood Count 7.8, Red Blood Count 3.65L, Hemoglobin 11.9, Hematocrit 37, Mean Corpuscular Volume 101H, Mean Corpuscular Hemoglobin 33, Mean Corpuscular Hemoglobin Concent 32, Red Cell Distribution Width 12.4, Platelet Count 193, Mean Platelet Volume 9.2, Immature Granulocyte % (Auto) 1, Neutrophils (%) (Auto) 59, Lymphocytes (%) (Auto) 26, Monocytes (%) (Auto) 8, Eosinophils (%) (Auto) 6, Basophils (%) (Auto) 1, Neutrophils # (Auto) 4.6, Lymphocytes # (Auto) 2.1, Monocytes # (Auto) 0.6, Eosinophils # (Auto) 0.5H, Basophils # (Auto) 0.1, Immature Granulocyte # (Auto) 0.0, Prothrombin Time 12.8, INR Comment 0.9, Activated Partial Thromboplast Time 31, Sodium Level 137, Potassium Level 4.0, Chloride Level 100, Carbon Dioxide Level 26, Anion Gap 11, Blood Urea Nitrogen 16, Creatinine 0.81, Estimat Glomerular Filtration Rate 72, BUN/Creatinine Ratio 20, Glucose Level 75, Calcium Level 9.2, Corrected Calcium 9.0, Total Bilirubin 0.5, Aspartate Amino Transf (AST/SGOT) 27, Alanine Aminotransferase (ALT/SGPT) 21, Alkaline Phosphatase 76, Total Protein 7.0, Albumin 4.3 08/27/22 19:55: Urine Color YELLOW, Urine Clarity CLEAR, Urine pH 6.0, Urine Specific [place] 1.020, Urine Protein NEGATIVE, Urine Glucose (UA) NEGATIVE, Urine Ketones TRACEH , Urine Nitrite POSITIVEH, Urine Bilirubin NEGATIVE, Urine Urobilinogen 0.2, Urine Leukocyte Esterase TRACEH, Urine RBC (Auto) TRACE-IH, Urine RBC RARE, Urine WBC 2-5, Urine Crystals NONE, Urine Bacteria LARGEH, Urine Casts NONE, Urine Mucus NEGATIVE, Urine Culture Indicated YES 08/28/22 05:00: White Blood Count 8.0, Red Blood Count 3.30L, Hemoglobin 11.0L, Hematocrit 33L, Mean Corpuscular Volume 99, Mean Corpuscular Hemoglobin 33, Mean Corpuscular Hemoglobin Concent 34, Red Cell Distribution Width 12.2, Platelet Count 151, Mean Platelet Volume 9.1, Immature Granulocyte % (Auto) 1, Neutrophils (%) (Auto) 71, Lymphocytes (%) (Auto) 19, Monocytes (%) (Auto) 7, Eosinophils (%) (Auto) 2, Basophils (%) (Auto) 0, Neutrophils # (Auto) 5.6, Lymphocytes # (Auto) 1.6, Monocytes # (Auto) 0.6, Eosinophils # (Auto) 0.2, Basophils # (Auto) 0.0, Immature Granulocyte # (Auto) 0.0 08/28/22 05:25: Sodium Level 133L, Potassium Level 3.9, Chloride Level 102, Carbon Dioxide Level 22, Anion Gap 9, Blood Urea Nitrogen 13, Creatinine 0.73, Estimat Glomerular Filtration Rate 82, BUN/Creatinine Ratio 18, Glucose Level 102, Calcium Level 8.4L, Corrected Calcium 8.9, Total Bilirubin 0.7, Aspartate Amino Transf (AST/SGOT) 24, Alanine Aminotransferase (ALT/SGPT) 21, Alkaline Phosphatase 52, Total Protein 5.6L, Albumin 3.4 Microbiology 08/27/22 Urine Culture - Preliminary, Resulted Probable Klebsiella/Enterobact Laboratory Tests 08/27/22 18:29 08/28/22 05:00 08/28/22 05:25 A/P-Cardiology Assessment/Admission Diagnosis Right hip fracture post non-syncopal fall - awaiting surgical repair ?UTI - management per medical services Coronary artery disease - with a history of anterior wall myocardial infarction in June 2013, treated with primary angioplasty and stenting of the mid left anterior descending artery with Promus Element 2.25 x 32 mm stent. - - - Subsequently, on 11/04/13, following presentation with NSTEMI she underwent stenting of LCXOM with Mini Vision 2x28mm stent. 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 No pseudoaneurysm on u/s of 11/11/13 - MPI of 05/17/20 showed no evidence for myocardial ischemia or infarction. 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 - Echocardiogram of February 18, 2019 showed concentric LVH. LVEF 55-60%. LA is mildly dilated. PASP approx 25 mmHg Hyperlipidemia - statin tx - followed by Dr. Blake (PCP) Chronic joint pain - managed by PCP Carotid dz - Mild bilat carotid disease per u/s of June 2020 Discussion and Recomendations Cardiac risk for noncardiac surgery is estimated to be intermediate Continue home medications including ASA, BB and statin d/t known h/o CAD. Aspirin may be held for a few days if it is considered surgically necessary to do so We recommend DVT prophylaxis perioperatively Monitor lab closely We would like to thank Dr. Dozier for this consult Clinical Quality Measures DVT/VTE Risk/Contraindication: Contraindications-Pharm: Other *list below* Other: surgery LEN CAMPOS MD [facility] Aug 28, 2022 09:53
--- NOTE | 2022-08-28 10:05 | History & Physical ---
OMAR CARTAGENA 08/28/22 1005: History of Present Illness History of Present Illness Reason for visit/HPI Patient is a 81 year old female with a past medical history of CAD, HTN, prior NH, and HLP presented to the ER last night 08-27-2022 by EMS for right hip pain after falling walking into her house. She was walking inside from her deck when she caught her foot on the bottom of the door frame and fell. She denied losing consciousness or hitting her head on the fall. She denied any other extremity pain at that time last night. Images were taken of her right hip and femur. Her says she has had prior falls but none that have ever caused fracture. She was given fentanyl on way to hospital and was noted by ER physician to have delayed mentation. Results of the right hip x-ray showed mildly displaced and impacted fracture of the right femoral neck. X-ray of right femur showed slightly displaced and mildly comminuted subcapital fracture of the right femur. She was also found to have a UTI on UA, with current urine cultures growing possible Klebsiella/Enterobactor. Patient was given ceftriaxone for treatment. This morning (08-28-2022) patient was laying comfortably in her hospital bed in no acute distress. Her only complaint at this time was some mild pain in her right hip where she fell. She is being treated with morphine for her pain. She had no other concerns at this time. Mentation was still mildly delayed. Both cardiology and orthopedics have been consulted. Orthopedics is currently awaiting surgical clearance from cardiology, but orthopedics has tentatively scheduled surgery on 08-29-2022. At this time, benefits of surgical repair of closed right hip fracture outweigh risk of surgery, proceed with repair of closed right hip fracture. Date of Admission Aug 27, 2022 at 19:22 Date Seen by a Provider: Aug 28, 2022 Time Seen by a Provider: 10:28 I consulted on this patient on 08/28/22 09:59 Attending Physician Remy Blake MD Admitting Physician Admitting Physician: Cortney Ruiz DO Attending Physician: Cortney Ruiz DO Consult Allergies and Home Medications Allergies Coded Allergies: No Known Drug Allergies (Unverified , 06/02/13) Patient Home Medication List Aspirin (Aspirin EC) 81 Mg Tablet., 81 MG PO DAILY, (Reported) Entered as Reported by: SHARON MCDERMOTT on 08/28/221549 Last Action: Reviewed Atorvastatin Calcium (Atorvastatin Calcium) 40 Mg Tablet, 40 MG PO DAILY, (Reported) Entered as Reported by: SHARON MCDERMOTT on 08/28/221549 Last Action: Reviewed Bimatoprost (Lumigan) 0.01 % Drops, 1 DROP OU HS, (Reported) Entered as Reported by: SHARON MCDERMOTT on 08/28/221549 Last Action: Reviewed Bromfenac Sodium (Prolensa) 0.07 % Drops, 1 DROP OS DAILY, (Reported) Entered as Reported by: SHARON MCDERMOTT on 08/28/221549 Last Action: Reviewed Clopidogrel Bisulfate (Clopidogrel) 75 Mg Tablet, 75 MG PO DAILY, (Reported) Entered as Reported by: SHARON MCDERMOTT on 08/28/221549 Last Action: Reviewed Lisinopril (Lisinopril) 2.5 Mg Tablet, 2.5 MG PO DAILY, (Reported) Entered as Reported by: SHARON MCDERMOTT on 08/28/221549 Last Action: Reviewed Metoprolol Succinate (Metoprolol Succinate) 25 Mg Tab.er.24h, 25 MG PO DAILY, (Reported) Entered as Reported by: SHARON MCDERMOTT on 08/28/221549 Last Action: Reviewed Omeprazole (Omeprazole) 20 Mg Tab.rap.dr, 20 MG PO DAILY, (Reported) Entered as Reported by: SHARON MCDERMOTT on 08/28/221551 Last Action: Reviewed Timolol Maleate (Timolol Maleate 0.5%) 0.5 % Drops, 1 DROP OP DAILY, (Reported) Entered as Reported by: SHARON MCDERMOTT on 08/28/221549 Last Action: Reviewed Discontinued Medications Aspirin (Aspirin 81 Mg Chew Tab) 81 Mg Chew, 81 MG PO DAILY, (Reported) Discontinued Reason: No Longer Taking Entered as Reported by: STEVIE LOUISE on 06/04/13 8097 Last Action: Discontinued Ca Carbonate/Vitamin D3/Vit K (Viactiv Soft Chew Tablet) 1 Each Tab.chew, 1 TAB PO BID, (Reported) Discontinued Reason: No Longer Taking Entered as Reported by: MARU MCLEAN on 11/05/13 1112 Last Action: Discontinued Clopidogrel Bisulfate (Plavix 75 Mg) 75 Mg Tablet, 75 MG PO DAILY, (Reported) Discontinued Reason: No Longer Taking Entered as Reported by: STEVIE LOUISE on 06/04/131426 Last Action: Discontinued Hydrocortisone/Oatmeal/Aloe/E (Hydrocortisone 1% Cream) 28.4 Gm Cream.gm., 1 GM TOP TID PRN for RASH, (Reported) Discontinued Reason: No Longer Taking Entered as Reported by: SUDEEP PEREZ on 06/02/13 163 Last Action: Discontinued Lisinopril (Prinivil) 2.5 Mg Tablet, 2.5 MG PO DAILY, (Reported) Discontinued Reason: No Longer Taking Entered as Reported by: STEVIE LOUISE on 06/04/131426 Last Action: Discontinued Metoprolol Succinate (Toprol Xl 25MG) 25 Mg Tab.sr.24h, 25 MG PO DAILY, (Reported) Discontinued Reason: No Longer Taking Entered as Reported by: STEVIE LOUISE on 06/04/131426 Last Action: Discontinued Nitrofurantoin Monohyd/M-Cryst (Macrobid 100 mg Capsule) 100 Mg Capsule, 1 TAB PO BID Discontinued Reason: No Longer Taking Prescribed by: ELSY MORALES on 12/22/21 1336 Last Action: Discontinued Omeprazole (Omeprazole) 40 Mg Capsule.dr, 40 MG PO DAILY, (Reported) Discontinued Reason: Prescription changed Entered as Reported by: SHARON MCDERMOTT on 08/28/22 1550 Last Action: New Order Simvastatin (Simvastatin) 40 Mg Tablet, 40 MG PO DAILY, (Reported) Discontinued Reason: No Longer Taking Entered as Reported by: HERNÁN WINKLER on 11/04/132058 Last Action: Discontinued Timolol Maleate/Dorzolam Hcl (Dorzolamide-Timolol Eye Drops) 10 Ml Drops, 1 DROP OU BID, (Reported) Discontinued Reason: No Longer Taking Entered as Reported by: SUDEEP PEREZ on 06/02/13 1639 Last Action: Discontinued Travoprost (Travatan Z) 5 Ml Drops, 1 DROP OD HS, (Reported) Discontinued Reason: No Longer Taking Entered as Reported by: MARU MCLEAN on 11/05/13 1106 Last Action: Discontinued [[id number]] , 2.5 MG PO BID Discontinued Reason: No Longer Taking Prescribed by: SONNY KNIGHT on 11/06/13 0958 Last Action: Discontinued Past Wtfjdga-Lcuhmx-Dzntfg Hx Patient Social History Marrital Status: Tobacco Use?: No Smoking Status: Never a Smoker Smokeless Tobacco Frequency: Never a User Use of E-Cig and/or Vaping dev: No Substance use?: No Alcohol Use?: Yes Alcohol Frequency: Rarely Pt feels they are or have been: No Immunizations Up To Date Date of Influenza Vaccine: Sep 01, 2013 First/Initial COVID19 Vaccinat: YES Second COVID19 Vaccination Erich: YES Hepatitis A: Yes Hepatitis B: Yes Date of Pneumonia Vaccine: Nov 05, 2010 Seasonal Allergies Seasonal Allergies: No Current Status status: No status: No Advance Directives: Yes Advance Directive Location: Home Communicates: Verbally Primary Language: Japanese Preferred Spoken Language: Japanese Is interpretation needed?: No Sensory deficits: Vision impairment, Hearing impairment Implanted or Applied Medical D: None Past Medical History Surgeries: Cardiac, Coronary Stent, Eye Surgery Coronary Artery Disease, Heart Attack, High Cholesterol, Hypertension Sexually Transmitted Disease: No Cataract, Glaucoma Hearing Impairment: Hard of Hearing Adverse Reaction/Blood Tranf: No Family Medical History Cancer AUNT (PATERNAL) AUNT (PATERNAL) Chest pain GRANDFATEHR (MATERNAL) Family history: Arthritis 03 FATHER 03 MOTHER Family history: Breast disease AUNT (PATERNAL) AUNT (PATERNAL) Family history: Cardiovascular disease GRANDFATEHR (MATERNAL) Family history: Coronary thrombosis GRANDFATEHR (MATERNAL) Family history: Diabetes mellitus 03 MOTHER Family history: Hypertension GRANDFATEHR (MATERNAL) Hearing loss 03 FATHER Myocardial infarction GRANDFATEHR (MATERNAL) Stroke GRANDMOTHER (MATERNAL) Heart Disease ADDITIONAL PMH: -06/2013--STEMI WITH ANGIOPLASTY AND STENT [address] CAMPOS -11/2013--NSTEMI WITH ANGIOPLASTY AND STENT X 1 TO OBTUSE MARGINAL OF LEFT CIRCUMFLEX--BY DR. CAMPOS Review of Systems Constitutional: No chills, No diaphoresis, No fever EENTM: no symptoms reported; No dental problems, No hoarseness, No mouth pain, No mouth swelling Respiratory: No cough, No dyspnea on exertion, No short of breath Cardiovascular: No chest pain, No palpitations Gastrointestinal: No abdominal pain Genitourinary: No decreased output, No discharge Musculoskeletal: joint pain, other (Right hip pain) Skin: No change in color, No change in hair/nails Psychiatric/Neurological: Denies Anxiety, Denies Depressed; Other (Slow mentation noted) Physical Exam Vital Signs Vital Signs - First Documented 08/27/22 08/28/22 08/28/22 18:25 00:00 00:22 Temp 37.1 Pulse 61 Resp 17 B/P (MAP) 183/106 (131) Pulse Ox 95 O2 Delivery Room Air FiO2 21 Capillary Refill : Less Than 3 Seconds Height, Weight, BMI Height: '" Weight: 151lbs. oz. 68.499554na; 24.74 BMI Method:Stated General Appearance: No Apparent Distress, WD/WN HEENT: PERRL/EOMI; No Scleral Icterus (L), No Scleral Icterus (R) Neck: Full Range of Motion, Normal Inspection, Non Tender Respiratory: Chest Non Tender, Lungs Clear, Normal Breath Sounds, No Accessory Muscle Use Cardiovascular: Regular Rate, Rhythm, No Edema, No Gallop Gastrointestinal: Normal Bowel Sounds, Non Tender, Soft Rectal: Deferred Back: Normal Inspection, No CVA Tenderness Extremity: Normal Capillary Refill, Other (Right lower extremity externally rotated and shorter that left. Moderate tenderness to palpation of right hip.) Neurologic/Psychiatric: Alert, Oriented x3, Normal Mood/Affect, Other (Delayed mentation) Skin: Normal Color, Warm/Dry Lymphatic: No Adenopathy Assessment/Plan Assessment and Plan Fracture of right femoral neck/Fall from standing height Pain management -currently well controlled on morphine Orthopedics consulted-surgery tentatively scheduled for 08-29 Cardiology consulted for surgical clearance Comminuted subcaptial fracture of right femur/Fall from standing height Pain management -currently well controlled on morphine Orthopedics consulted UTI-culture showing possible growth of Klebsiella/Enterobactor Ceftriaxone administered HTN Continue home meds (lisinopril and metoprolol) CAD MPI of 05/17/20 showed no evidence for myocardial ischemia or infarction. LVEF 76% Continue home meds Hyponatremia- Monitior and replace Hyperlipidemia Continue with home simvastatin History of NH- In [id number] Cardiology consulted Clinical Quality Measures DVT/VTE Risk/Contraindication: Contraindications-Pharm: Other *list below* Other: surgery CORTNEY RUIZ DO 08/29/22 0518: Allergies and Home Medications Allergies Coded Allergies: No Known Drug Allergies (Unverified , 06/02/13) Patient Home Medication List Home Medication List Reviewed: Yes Aspirin (Aspirin EC) 81 Mg Tablet., 81 MG PO DAILY, (Reported) Entered as Reported by: SHARON MCDERMOTT on 08/28/221549 Last Action: Reviewed Atorvastatin Calcium (Atorvastatin Calcium) 40 Mg Tablet, 40 MG PO DAILY, (Reported) Entered as Reported by: SHARON MCDERMOTT on 08/28/221549 Last Action: Reviewed Bimatoprost (Lumigan) 0.01 % Drops, 1 DROP OU HS, (Reported) Entered as Reported by: SHARON MCDERMOTT on 08/28/221549 Last Action: Reviewed Bromfenac Sodium (Prolensa) 0.07 % Drops, 1 DROP OS DAILY, (Reported) Entered as Reported by: SHARON MCDERMOTT on 08/28/221549 Last Action: Reviewed Clopidogrel Bisulfate (Clopidogrel) 75 Mg Tablet, 75 MG PO DAILY, (Reported) Entered as Reported by: SHARON MCDERMOTT on 08/28/221549 Last Action: Reviewed Lisinopril (Lisinopril) 2.5 Mg Tablet, 2.5 MG PO DAILY, (Reported) Entered as Reported by: SHARON MCDERMOTT on 08/28/221549 Last Action: Reviewed Metoprolol Succinate (Metoprolol Succinate) 25 Mg Tab.er.24h, 25 MG PO DAILY, (Reported) Entered as Reported by: SHARON MCDERMOTT on 08/28/221549 Last Action: Reviewed Omeprazole (Omeprazole) 20 Mg Tab.rap.dr, 20 MG PO DAILY, (Reported) Entered as Reported by: SHARON MCDERMOTT on 08/28/221551 Last Action: Reviewed Timolol Maleate (Timolol Maleate 0.5%) 0.5 % Drops, 1 DROP OP DAILY, (Reported) Entered as Reported by: SHARON MCDERMOTT on 08/28/221549 Last Action: Reviewed Discontinued Medications Aspirin (Aspirin 81 Mg Chew Tab) 81 Mg Chew, 81 MG PO DAILY, (Reported) Discontinued Reason: No Longer Taking Entered as Reported by: STEVIE LOUISE on 06/04/13 1427 Last Action: Discontinued Ca Carbonate/Vitamin D3/Vit K (Viactiv Soft Chew Tablet) 1 Each Tab.chew, 1 TAB PO BID, (Reported) Discontinued Reason: No Longer Taking Entered as Reported by: MARU MCLEAN on 11/05/13 1112 Last Action: Discontinued Clopidogrel Bisulfate (Plavix 75 Mg) 75 Mg Tablet, 75 MG PO DAILY, (Reported) Discontinued Reason: No Longer Taking Entered as Reported by: STEVIE LOUISE on 06/04/131426 Last Action: Discontinued Hydrocortisone/Oatmeal/Aloe/E (Hydrocortisone 1% Cream) 28.4 Gm Cream.gm., 1 GM TOP TID PRN for RASH, (Reported) Discontinued Reason: No Longer Taking Entered as Reported by: SUDEEP PEREZ on 06/02/131638 Last Action: Discontinued Lisinopril (Prinivil) 2.5 Mg Tablet, 2.5 MG PO DAILY, (Reported) Discontinued Reason: No Longer Taking Entered as Reported by: STEVIE LOUISE on 06/04/131426 Last Action: Discontinued Metoprolol Succinate (Toprol Xl 25MG) 25 Mg Tab.sr.24h, 25 MG PO DAILY, (Reported) Discontinued Reason: No Longer Taking Entered as Reported by: STEVIE LOUISE on 06/04/131426 Last Action: Discontinued Nitrofurantoin Monohyd/M-Cryst (Macrobid 100 mg Capsule) 100 Mg Capsule, 1 TAB PO BID Discontinued Reason: No Longer Taking Prescribed by: ELSY MORALES on 12/22/21 1336 Last Action: Discontinued Omeprazole (Omeprazole) 40 Mg Capsule.dr, 40 MG PO DAILY, (Reported) Discontinued Reason: Prescription changed Entered as Reported by: SHARON MCDERMOTT on 08/28/22 1550 Last Action: New Order Simvastatin (Simvastatin) 40 Mg Tablet, 40 MG PO DAILY, (Reported) Discontinued Reason: No Longer Taking Entered as Reported by: HERNÁN WINKLER on 11/04/132058 Last Action: Discontinued Timolol Maleate/Dorzolam Hcl (Dorzolamide-Timolol Eye Drops) 10 Ml Drops, 1 DROP OU BID, (Reported) Discontinued Reason: No Longer Taking Entered as Reported by: SUDEEP PEREZ on 06/02/131638 Last Action: Discontinued Travoprost (Travatan Z) 5 Ml Drops, 1 DROP OD HS, (Reported) Discontinued Reason: No Longer Taking Entered as Reported by: MARU MCLEAN on 11/05/13 1106 Last Action: Discontinued [[id number]] , 2.5 MG PO BID Discontinued Reason: No Longer Taking Prescribed by: SONNY KNIGHT on 11/06/13 0958 Last Action: Discontinued Past Irmbhhh-Egwfud-Opbqtj Hx Patient Social History Marrital Status: Employed/Student: retired Past Medical History Surgeries: Coronary Stent Coronary Artery Disease, High Cholesterol, Hypertension Family Medical History Cancer AUNT (PATERNAL) AUNT (PATERNAL) Chest pain GRANDFATEHR (MATERNAL) Family history: Arthritis 03 FATHER 03 MOTHER Family history: Breast disease AUNT (PATERNAL) AUNT (PATERNAL) Family history: Cardiovascular disease GRANDFATEHR (MATERNAL) Family history: Coronary thrombosis GRANDFATEHR (MATERNAL) Family history: Diabetes mellitus 03 MOTHER Family history: Hypertension GRANDFATEHR (MATERNAL) Hearing loss 03 FATHER Myocardial infarction GRANDFATEHR (MATERNAL) Stroke GRANDMOTHER (MATERNAL) Review of Systems Constitutional: see HPI Physical Exam General Appearance: No Apparent Distress, WD/WN, Chronically ill Eyes: Bilateral Eye Normal Inspection, Bilateral Eye PERRL, Bilateral Eye EOMI HEENT: PERRL/EOMI, Normal ENT Inspection, Pharynx Normal Neck: Full Range of Motion, Normal Inspection, Non Tender, Supple, Carotid Bruit Respiratory: Chest Non Tender, Lungs Clear, Normal Breath Sounds, No Accessory Muscle Use, No Respiratory Distress Cardiovascular: Regular Rate, Rhythm, No Edema, No Gallop, No JVD, No Murmur, Normal Peripheral Pulses Gastrointestinal: Normal Bowel Sounds, No Organomegaly, No Pulsatile Mass, Non Tender, Soft Back: Normal Inspection, No CVA Tenderness, No Vertebral Tenderness Extremity: Normal Capillary Refill, Normal Inspection, Normal Range of Motion, Non Tender, No Calf Tenderness, No Pedal Edema Neurologic/Psychiatric: Alert, Oriented x3, No Motor/Sensory Deficits, Normal Mood/Affect Skin: Normal Color, Warm/Dry Lymphatic: No Adenopathy Assessment/Plan Assessment and Plan Assessment: Right hip fracture CAD HTN HLP Acute UTI Plan: Proceed with repair Admission Diagnosis Admission Status: Inpatient Order (span 2 midnights) Reason for Inpatient Admission: hip racture Supervisory-Addendum Brief Verification & Attestation Participated in pt care: history, MDM, physical Personally performed: exam, history, MDM, supervision of care Care discussed with: Medical Student Procedures: n/a Results interpretation: Verified all documentation Verification and Attestation of Medical Student E/M Service A medical student performed and documented this service in my presence. I reviewed and verified all information documented by the medical student and made modifications to such information, when appropriate. I personally performed the physical exam and medical decision making. Cortney Ruiz, Aug 29, 2022,05:18 OMAR CARTAGENA Aug 28, 2022 10:05 CORTNEY RUIZ DO Aug 29, 2022 05:18
[2022-08-28] MEDS ORDERED: LIDOCAINE PF 2% 5 ML (XYLOCAINE) VIAL ONE (13:20)
[2022-08-28] MEDS ORDERED: proPOfol 200 MG/20 ML (DIPRIVAN) VIAL IV ONE (13:20)
[2022-08-28] MEDS ORDERED: ROCURONIUM 10 MG/ML 5 ML SYRINGE IV ONE (13:20)
[2022-08-28] MEDS ORDERED: ONDANSETRON 4 MG/2 ML (SDV) Z0FRAN ONE (13:20)
[2022-08-28] MEDS ORDERED: fentaNYL INJ 100 MCG/2 ML AMP ONE (13:20)
[2022-08-28] MEDS ORDERED: SEVOFLURANE (ULTANE) 15 ML INHAL SOLN ONE (13:20)
[2022-08-28] MEDS ORDERED: LACTATED RINGERS 1,000 ML IV PRN (13:30)
[2022-08-28] MEDS ORDERED: TRANEXAMIC ACID 3,000 MG/150 ML NS IRRIGATION IR ONE ×2 (14:00)
[2022-08-28] MEDS ORDERED: ceFAZolin INJECTION 1,000 MG VIAL IV ONE (14:00)
[2022-08-28] MEDS: ceFAZolin INJECTION 1,000 MG VIAL IV NR (14:05)
[2022-08-28] MEDS ORDERED: GLYCOPYRROLATE 0.2 MG/ML (ROBINUL) 2 ML VIAL ONE (15:21)
[2022-08-28] MEDS ORDERED: NEOSTIGMINE (BLOXIVERZ ) 1 MG/1ML 10 ML VIAL ONE (15:21)
[2022-08-28] MEDS ORDERED: LISI2.5T13 PO (15:50)
[2022-08-28] MEDS ORDERED: BIMA2.5D4 OU (15:50)
[2022-08-28] MEDS ORDERED: CLOP75TA28 PO (15:50)
[2022-08-28] MEDS ORDERED: OMEP40CA6 PO (15:50)
[2022-08-28] MEDS ORDERED: ATOR40TA70 PO (15:50)
[2022-08-28] MEDS ORDERED: ASPI-1238 PO (15:50)
[2022-08-28] MEDS ORDERED: TIMO5DRO5 OP (15:50)
[2022-08-28] MEDS ORDERED: BROM3DRO OS (15:50)
[2022-08-28] MEDS ORDERED: MTP25TSR PO (15:50)
[2022-08-28] MEDS ORDERED: OMEP-401 PO (15:52)
--- NOTE | 2022-08-28 15:58 | Anesthesia-General Post-Op ---
General Patient Condition Mental Status/LOC: Same as Preop Cardiovascular: Satisfactory Nausea/Vomiting: Absent Respiratory: Satisfactory Pain: Controlled Complications: Absent Post Op Complications Complications None Follow Up Care/Instructions Patient Instructions None needed. Anesthesia/Patient Condition Patient Condition Patient is doing well, no complaints, stable vital signs, no apparent adverse anesthesia problems. No complications reported per nursing. MARLEEN BUENO CRNA Aug 28, 2022 15:58
[2022-08-28] MEDS ORDERED: fentaNYL INJ 100 MCG/2 ML AMP IVP ONE (16:00)
[2022-08-28] MEDS ORDERED: ONDANSETRON 4 MG/2 ML (SDV) Z0FRAN IVP PRN (16:00)
--- NOTE | 2022-08-28 16:09 | Operative Report - Ortho ---
Operative Report Surgeon (s)/Mat Gauger (s) Surgeon HUNTER MARCANO MD Mat Gauger n/a Pre-Operative Diagnosis Right Femoral Neck Fracture Post-Operative Diagnosis same Operative Report Date of Procedure: Aug 28, 2022 Name of Procedure Performed: Prosthetic Replacement of Right Femoral Neck Fracture Description & Findings After obtaining informed consent and marking the patient in the preoperative holding area, the patient did receive antibiotics and was taken to the operating room. General anesthesia was induced and patient was positioned in the lateral decubitus position with the right side up. Right lower extremity was prepped and draped in the usual sterile fashion. Surgical timeout was taken. Posterolateral approach was utilized. Capsule and external rotators were taken down in one layer. Hip was dislocated without difficulty and the femoral head was removed at the fracture line. Femoral neck was freshened with a saw. Acetabulum was sized as a 47. Attention was turned to the femoral side, a Paybubble cutter osteotome was used to removed bone near the greater trochanter. Canal finder was inserted followed by the lateralizing reamer. Sequential broaching was began with a 2 and was broached to a 4. Trial 127 degree neck, -4 mm head, and 47 mm bipolar component were put into place. Hip was located and was found to have leg lengths that were grossly equal; the hip was stable in position of sleep, and stable in flexion and internal rotation. This was accepted. Hip was dislocated. Canal was prepared for cementing; broach was removed and the canal was irrigated and b rushed. Cement was mixed and then placed in the canal. A size 4 Accolade C was placed and held in position while the cement set. Once the cement had set, a -4 mm head was impacted onto the boggs taper of the stem and a 47 mm bipolar component was placed. Hip was once again located and found to have grossly equal leg lengths with stability in position of sleep as well as flexion and internal rotation. Tranexamic acid was applied for hemostasis. Capsular repair was performed with #2 fiberwire. The fascial layer was closed with #2 Stratafix. The subcutaneous layer was closed with 2-0 Vicryl. Skin was closed with cece. Wound was dressed with xeroform, 4x4s, ABD, and tape. Patient was placed in abduction pillow and transferred to hospital bed without difficulty and was stable to the recovery room. Anesthesia Type General Estimated Blood Loss 300 mL Specimen(s) collected/removed None HUNTER MARCANO MD Aug 28, 2022 16:09
--- NOTE | 2022-08-28 16:32 | Diagnostic Imaging Report ---
INDICATION: Postoperative evaluation. TECHNIQUE: AP views of the pelvis are obtained with comparison made to study of one day earlier. FINDINGS: There has been resection of the fractured right femoral head and neck with performance of hemiarthroplasty in the right hip. Alignment appears normal. There is no evidence of new fracture or malalignment. IMPRESSION: Right hip hemiarthroplasty without evidence of complication or other acute abnormality. Dictated by: Dictated on workstation # [id number]
[2022-08-28] MEDS: ceFAZolin INJECTION 1,000 MG in NS (IVPB) 50 ML IV SCH (20:59)
[2022-08-28] MEDS ORDERED: ceFAZolin INJECTION 1 MG in NS (IVPB) 50 ML IV SCH (22:00)
[2022-08-29 00:02] VITALS: BP 136/78
[2022-08-29 03:41] VITALS: BP 147/72
[2022-08-29 05:26] LABS: BASOPHILS % (AUTO) 0 % (0-10); EOSINOPHILS % (AUTO) 0 % (0-10); HEMATOCRIT 30 % (35-52); LYMPHOCYTES # (AUTO) 1.1 10^3/uL (1.0-4.0); LYMPHOCYTES % (AUTO) 13 % (12-44); MEAN CORPUSCULAR HEMOGLOBIN 33 pg (25-34); MEAN CORPUSCULAR HGB CONC 33 g/dL (32-36); MEAN CORPUSCULAR VOLUME 101 fL (80-99); MONOCYTES # (AUTO) 0.7 10^3/uL (0.0-1.0); MONOCYTES % (AUTO) 9 % (0-12); NEUTROPHILS # (AUTO) 6.5 10^3/uL (1.8-7.8); NEUTROPHILS % (AUTO) 77 % (42-75); PLATELET COUNT 131 10^3/uL (130-400); WHITE BLOOD COUNT 8.4 10^3/uL (4.3-11.0)
[2022-08-29] MEDS: ceFAZolin INJECTION 1,000 MG in NS (IVPB) 50 ML IV SCH (05:48)
[2022-08-29 05:49] LABS: ALBUMIN 3.1 GM/DL (3.2-4.5); BILIRUBIN,TOTAL 0.7 MG/DL (0.1-1.0); CALCIUM 8.4 MG/DL (8.5-10.1); CREATININE SERUM 0.67 MG/DL (0.60-1.30); POTASSIUM 4.2 MMOL/L (3.6-5.0); TOTAL PROTEIN 5.2 GM/DL (6.4-8.2)
[2022-08-29] MEDS ORDERED: ceFAZolin INJECTION 1,000 MG VIAL IV ONE (06:45)
[2022-08-29] MEDS: NS IV 1000 ML 1,000 ML IV SCH ×2 (06:53→13:17)
[2022-08-29 08:00] VITALS: BP 129/79
[2022-08-29] MEDS ORDERED: ENOXAPARIN 40 MG/0.4 ML (LOVENOX) SYR SC SCH (08:15)
--- NOTE | 2022-08-29 08:44 | Progress Note - Cardiology ---
Cardiology SOAP Progress Note Objective: I&O/Vital Signs 08/29/22 08/29/22 08/29/22 08/29/22 03:41 07:00 08:00 08:00 Temp 36.7 36.5 Pulse 80 90 71 Resp 18 18 B/P (MAP) 147/72 (97) 129/79 (96) Pulse Ox 95 96 97 O2 Delivery Room Air Room Air Room Air 08/29/22 11:56 Temp 36.9 Pulse 67 Resp 21 B/P (MAP) 136/81 (99) Pulse Ox 97 O2 Delivery Room Air 08/29/22 00:00 Intake Total 500 ml Output Total 1575 ml Balance -1075 ml Weight (Pounds): 151 Weight (Calculated Kilograms): 68.642750 Constitutional: AAO x 3, well-developed, well-nourished Respiratory: No accessory muscle use, No respiratory distress; chest expansion is symmetric, chest is bilaterally symmetric, lungs clear to auscultation Cardiovascular: regular rate-rhythm; No JVD; S1 and S2 Gastrointestional: No tender; soft, round, audible bowel sounds Extremities: other (mild R LE swelling) Neurologic/Psychiatric: grossly intact (right leg not manipulated d/t hip fracture; able to move all other extremities; AAOx3) Skin: No rash on exposed areas, No ulcerations on exposed areas Results/Procedures: Labs Laboratory Tests 08/29/22 05:16: White Blood Count 8.4, Red Blood Count 3.01L, Hemoglobin 10.0L, Hematocrit 30L, Mean Corpuscular Volume 101H, Mean Corpuscular Hemoglobin 33, Mean Corpuscular Hemoglobin Concent 33, Red Cell Distribution Width 12.2, Platelet Count 131, Mean Platelet Volume 9.0, Immature Granulocyte % (Auto) 0, Neutrophils (%) (Auto) 77H, Lymphocytes (%) (Auto) 13, Monocytes (%) (Auto) 9, Eosinophils (%) (Auto) 0, Basophils (%) (Auto) 0, Neutrophils # (Auto) 6.5, Lymphocytes # (Auto) 1.1, Monocytes # (Auto) 0.7, Eosinophils # (Auto) 0.0, Basophils # (Auto) 0.0, Immature Granulocyte # (Auto) 0.0, Sodium Level 132L, Potassium Level 4.2, Chloride Level 102, Carbon Dioxide Level 19L, Anion Gap 11, Blood Urea Nitrogen 13, Creatinine 0.67, Estimat Glomerular Filtration Rate 87, BUN/Creatinine Ratio 19, Glucose Level 123H, Calcium Level 8.4L, Corrected Calcium 9.1, Total Bilirubin 0.7, Aspartate Amino Transf (AST/SGOT) 22, Alanine Aminotransferase (ALT/SGPT) 17, Alkaline Phosphatase 45, Total Protein 5.2L, Albumin 3.1L Microbiology 08/28/22 MRSA Screen - Final, Complete MRSA not isolated 08/27/22 Urine Culture - Final, Complete Klebsiella pneumoniae A/P: Assessment: Right hip fracture post non-syncopal fall - s/p surgical repair ?UTI - management per medical services Coronary artery disease - with a history of anterior wall myocardial infarction in June 2013, treated with primary angioplasty and stenting of the mid left anterior descending artery with Promus Element 2.25 x 32 mm stent. - - - Subsequently, on 11/04/13, following presentation with NSTEMI she underwent stenting of LCXOM with Mini Vision 2x28mm stent. 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 No pseudoaneurysm on u/s of 11/11/13 - MPI of 05/17/20 showed no evidence for myocardial ischemia or infarction. 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 - Echocardiogram of February 18, 2019 showed concentric LVH. LVEF 55-60%. LA is mildly dilated. PASP approx 25 mmHg Hyperlipidemia - statin tx - followed by Dr. Blake (PCP) Chronic joint pain - managed by PCP Carotid dz - Mild bilat carotid disease per u/s of June 2020 Plan: Continue current medication regimen Advise resumption of ASA if ok with surgical services d/t known h/o CAD We recommend continuation of DVT prophylaxis Monitor lab closely SONNY KNIGHT Aug 29, 2022 08:44
[2022-08-29] MEDS ORDERED: PATIENT MAY USE OWN MEDS, ALL MC SCH (08:45)
--- NOTE | 2022-08-29 08:45 | Progress Note - Ortho ---
Progress Note Subjective Date of Exam 08/29/22 Chief Complaint POD #1 Right Hip Bipolar HPI/Events since last exam pain controlled on current medication regimen, getting ready to work with therapy, no specific concerns Review of Systems - Allergies: Coded Allergies: No Known Drug Allergies (Unverified , 06/02/13) Home Meds Reported Medications Omeprazole (Omeprazole) 20 Mg Tab.rap.dr, 20 MG PO DAILY, EA 08/28/22 Aspirin (Aspirin EC) 81 Mg Tablet.dr, 81 MG PO DAILY, TAB 08/28/22 Timolol Maleate (Timolol Maleate 0.5%) 0.5 % Drops, 1 DROP OP DAILY, DROP 08/28/22 Clopidogrel Bisulfate (Clopidogrel) 75 Mg Tablet, 75 MG PO DAILY, TAB 08/28/22 Bimatoprost (Lumigan) 0.01 % Drops, 1 DROP OU HS, DROP 08/28/22 Bromfenac Sodium (Prolensa) 0.07 % Drops, 1 DROP OS DAILY, DROP 08/28/22 Metoprolol Succinate (Metoprolol Succinate) 25 Mg Tab.er.24h, 25 MG PO DAILY, TAB 08/28/22 Atorvastatin Calcium (Atorvastatin Calcium) 40 Mg Tablet, 40 MG PO DAILY, TAB 08/28/22 Lisinopril (Lisinopril) 2.5 Mg Tablet, 2.5 MG PO DAILY, TAB 08/28/22 Discontinued Reported Medications Omeprazole (Omeprazole) 40 Mg Capsule.dr, 40 MG PO DAILY, CAP 08/28/22 Ca Carbonate/Vitamin D3/Vit K (Viactiv Soft Chew Tablet) 1 Each Tab.chew, 1 TAB PO BID 11/05/13 Travoprost (Travatan Z) 5 Ml Drops, 1 DROP OD HS 11/05/13 Simvastatin (Simvastatin) 40 Mg Tablet, 40 MG PO DAILY 11/04/13 Lisinopril (Prinivil) 2.5 Mg Tablet, 2.5 MG PO DAILY 06/04/13 Metoprolol Succinate (Toprol Xl 25MG) 25 Mg Tab.sr.24h, 25 MG PO DAILY 06/04/13 Clopidogrel Bisulfate (Plavix 75 Mg) 75 Mg Tablet, 75 MG PO DAILY 06/04/13 Aspirin (Aspirin 81 Mg Chew Tab) 81 Mg Chew, 81 MG PO DAILY 06/04/13 Timolol Maleate/Dorzolam Hcl (Dorzolamide-Timolol Eye Drops) 10 Ml Drops, 1 DROP OU BID 06/02/13 Hydrocortisone/Oatmeal/Aloe/E (Hydrocortisone 1% Cream) 28.4 Gm Cream.gm., 1 GM TOP TID PRN for RASH APPLY TO AFFECTED AREA NEEDED FOR RASH AND ITCHING 06/02/13 Discontinued Scripts Nitrofurantoin Monohyd/M-Cryst (Macrobid 100 mg Capsule) 100 Mg Capsule, 1 TAB PO BID for 7 Days, #14 CAP 0 Refills Prov:ELSY MORALES 12/22/21 [Lisinopril] (Zestril) No Conflict Check, 2.5 MG PO BID, #60 5 Refills Prov:SONNY KNIGHT GAS 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 OPERATOR 11/06/13 Objective Exam Right Hip: Dressing C/D/I, +DF of ankle, no s/s of DVT Vital Signs Vital Signs Date Time Temp Pulse Resp B/P (MAP) Pulse Ox O2 Delivery O2 Flow Rate FiO2 08/29/22 08:00 36.5 71 18 129/79 (96) 96 Room Air 08/29/22 07:00 90 08/29/22 03:41 36.7 80 18 147/72 (97) 95 Room Air 08/29/22 00:02 36.5 77 18 136/78 (97) 93 Room Air 08/28/22 20:00 Room Air 08/28/22 19:11 36.0 74 20 143/82 (102) 93 Room Air 08/28/22 18:33 76 08/28/22 16:53 36.1 71 17 146/68 (94) 90 Room Air 08/28/22 16:45 Room Air 08/28/22 16:45 36.5 18 145/78 (100) 93 Room Air 08/28/22 16:40 18 143/75 (97) 93 Room Air 08/28/22 16:37 Room Air 08/28/22 16:31 Room Air 08/28/22 16:30 18 145/73 (97) 93 Room Air 08/28/22 16:25 OxyMask 2.00 08/28/22 16:20 18 142/84 (103) 96 OxyMask 2.00 08/28/22 16:19 OxyMask 4.00 08/28/22 16:10 18 161/81 (107) 99 OxyMask 4.00 08/28/22 16:08 OxyMask 6.00 08/28/22 16:00 20 161/85 (110) 99 OxyMask 6.00 08/28/22 16:00 OxyMask 6.00 08/28/22 15:49 OxyMask 6.00 08/28/22 15:49 36.7 22 179/84 (115) 98 OxyMask 6.00 08/28/22 12:34 72 08/28/22 12:00 37.2 66 18 130/60 (83) 96 Room Air 08/28/22 10:47 37.2 66 18 130/60 (83) 96 08/28/22 09:49 Room Air 97 08/28/22 09:03 36.6 I & O 08/29/22 07:00 Intake Total 650 ml Output Total 1825 ml Balance -1175 ml Lab Results Laboratory Tests 08/29/22 05:16: White Blood Count 8.4, Red Blood Count 3.01L, Hemoglobin 10.0L, Hematocrit 30L, Mean Corpuscular Volume 101H, Mean Corpuscular Hemoglobin 33, Mean Corpuscular Hemoglobin Concent 33, Red Cell Distribution Width 12.2, Platelet Count 131, Mean Platelet Volume 9.0, Immature Granulocyte % (Auto) 0, Neutrophils (%) (Auto) 77H, Lymphocytes (%) (Auto) 13, Monocytes (%) (Auto) 9, Eosinophils (%) (Auto) 0, Basophils (%) (Auto) 0, Neutrophils # (Auto) 6.5, Lymphocytes # (Auto) 1.1, Monocytes # (Auto) 0.7, Eosinophils # (Auto) 0.0, Basophils # (Auto) 0.0, Immature Granulocyte # (Auto) 0.0, Sodium Level 132L, Potassium Level 4.2, Chloride Level 102, Carbon Dioxide Level 19L, Anion Gap 11, Blood Urea Nitrogen 13, Creatinine 0.67, Estimat Glomerular Filtration Rate 87, BUN/Creatinine Ratio 19, Glucose Level 123H, Calcium Level 8.4L, Corrected Calcium 9.1, Total Bilirubin 0.7, Aspartate Amino Transf (AST/SGOT) 22, Alanine Aminotransferase (ALT/SGPT) 17, Alkaline Phosphatase 45, Total Protein 5.2L, Albumin 3.1L Microbiology 08/28/22 MRSA Screen - Final, Complete MRSA not isolated 08/27/22 Urine Culture - Preliminary, Resulted Probable Klebsiella/Enterobact Imaging Postop AP pelvis demonstrated appropriate position of components and no complication Assessment and Plan Assessment Right Femoral Neck Fracture s/p Prosthetic Replacement Problem List Right Femoral Neck Fracture s/p Prosthetic Replacement Plan PT/OT DVT Prophylaxis Final Diagonsis Right Femoral Neck Fracture s/p Prosthetic Replacement Level of the visit: Level 3 (postop global) Clinical Quality Measures DVT/VTE Risk/Contraindication: Contraindications-Pharm: Other *list below* Other: surgery HUNTER MARCANO MD Aug 29, 2022 08:45
[2022-08-29] MEDS: SENNOSIDES 8.6 MG (SENOKOT) TAB PO SCH ×2 (08:50→19:44)
[2022-08-29] MEDS: PANTOPRAZOLE 20 MG TABLET (PROTONIX) PO SCH (08:50)
[2022-08-29] MEDS: DOCUSATE SODIUM 100 MG (COLACE) CAP PO SCH ×2 (08:50→19:44)
[2022-08-29] MEDS: lisINopril 5 MG (PRINIVIL) TABLET PO SCH (08:51)
[2022-08-29] MEDS ORDERED: TIMOLOL MALEATE 0.5% 5 ML (TIMOPTIC) BTL OP SCH (09:00)
[2022-08-29] MEDS ORDERED: BROMFENAC SODIUM OS SCH (09:00)
--- NOTE | 2022-08-29 09:04 | Physical Therapy Evaluation ---
PT Evaluation-General Medical Diagnosis Admission Date Aug 27, 2022 at 19:22 Medical Diagnosis: right bipolar hip replacement Onset Date: Aug 28, 2022 Therapy Diagnosis Therapy Diagnosis: impaired mobility Height/Weight Weight (Pounds): 151 Precautions Precautions/Isolations: Fall Prevention, Standard Precautions Weight Bear Status Right Lower Extremity: Right Weight Bearing/Tolerated Referral Physician: Adriana Reason for Referral: Evaluation/Treatment Medical History History of Falls (past yr): Yes Prior Surgery (last 100 days): Unknown Additional Medical History Past Medical History Surgeries: Cardiac, Coronary Stent, Eye Surgery Coronary Artery Disease, Heart Attack, High Cholesterol, Hypertension Sexually Transmitted Disease: No Cataract, Glaucoma Hearing Impairment: Hard of Hearing Reviewed History: Yes Social History Current Living Status: Spouse Entry Into Home: Stairs With Railing PT Steps Into Home: 3 Prior Prior Level of Function SCALE: Activities may be completed with or without assistive devices. 9-Ozblwftuzb-zuwibxq completes the activity by him/herself with no assistance from a helper. 5-Set-up or Clean-up Assistance-helper sets up or cleans up; patient completes activity. [place] assists only prior to or following the activity. 4-Supervision or Touching Assistance-helper provides verbal cues and/or touching/steadying and/or contact guard assistance as patient completes activity. Assistance may be provided throughout the activity or intermittently. 3-Partial/Moderate Assistance-helper does LESS THAN HALF the effort. [place] lifts, holds or supports trunk or limbs, but provides less than half the effort. 2-Substantial/Maximal Assistance-helper does MORE THAN HALF the effort. [place] lifts or holds trunk or limbs and provides more than half the effort. 2-Obfigrnji-zspzrc does ALL the effort. Patient does none of the effort to complete the activity. Or, the assistance of 2 or more helpers is required for the patient to complete the activity. If activity was not attempted, code reason: 7-Patient Refused. 9-Not Applicable-not attempted and the patient did not perform the activity before the current illness, exacerbation or injury. 10-Not Attempted due to Environmental Limitations-(lack of equipment, weather restraints, etc.). 88-Not Attempted due to Medical Conditions or Safety Concerns. Bed Mobility: 6 Transfers (B,C,W/C): 6 Gait: 6 Stairs: 6 Indoor Mobility (Ambulation): Independent Stairs: Independent Prior Devices Use: None PT Evaluation-Current Subjective Patient in bed pre tx, agrees to PT, has 6/10 pain in right hip. Pt/Family Goals to be independent at home Objective Patient Orientation: Person, Confused, Place, Situation Attachments: Nicholson Catheter, IV Sensory Hearing: Functional Sensation Right Lower Extremit: Intact Sensation Left Lower Extremity: Intact Transfers Roll Left to Right (QC): 3 Lying to Sitting/Side of Bed(Q: 2 Sit to Stand (QC): 3 Chair/Fqi-ts-Vuavt Xfer(QC): 3 max assist for supine to sit, mod assist for sit to stand, patient was able to take a few tiny steps to the recliner, her feet didn't really clear the floor but she didn't exactly slide them across the floor Balance Sitting Static: Fair Sitting Dynamic: Fair Standing Static: Poor Standing Dynamic: Poor Treatment supine RLE exercise x10 (AP, QS, HS, GS) Assessment/Needs Patient in recliner post tx with nurse call, phone, tray, all needs met, chair alarm on. Patient is still a little confused, has trouble following directions. Rehab Potential: Fair PT Mechanical Process Engineer Goals Mechanical Process Engineer Goals PT Mechanical Process Engineer Goals Time Frame: Sep 05, 2022 Roll Left & Right (QC): 6 Sit to Lying (QC): 4 Lying-Sitting on Side/Bed(QC): 4 Sit to Stand (QC): 4 Chair/Wjg-uo-Oyioz Xfer(QC): 4 Walk 10 feet (QC): 4 Walk 50ft with 2 Turns (QC): 4 Walk 150 ft (QC): 4 PT Plan Problem List Problem List: Activity Tolerance, Functional Strength, Safety, Balance, Gait, Transfer, Bed Mobility, ROM Treatment/Plan Treatment Plan: Continue Plan of Care Treatment Plan: Bed Mobility, Education, Functional Activity Demetris, Functional Strength, Gait, Safety, Therapeutic Exercise, Transfers Treatment Duration: Sep 05, 2022 Frequency: 11 times per week Estimated Hrs Per Day: .25 hour per day Patient and/or Family Agrees t: Yes Safety Risks/Education Patient Education: Gait Training, Transfer Techniques, Reviewed Precautions, Correct Positioning, Safety Issues Teaching Recipient: Patient Teaching Methods: Demonstration, Discussion Response to Teaching: Reinforcement Needed Discharge Recommendations Plan Patient will perform bed mobility and transfer training, balance and endurance training, functional strengthening, stair training, gait training, and education, to improve functional mobility and independence at home. Therapy Discharge Recommendati: Home & Family, Post Acute PT Time/GCodes Time In: 821 Time Out: 835 Total Billed Treatment Time: 14 Total Billed Treatment 1 visit TOMEKA Perry' VALENTINE DEY PT Aug 29, 2022 09:04
--- NOTE | 2022-08-29 09:26 | Progress Note ---
OMAR CARTAGENA 08/29/22 0926: Subjective Date Seen by a Provider: Aug 29, 2022 Time Seen by a Provider: 09:21 Subjective/Events-last exam Patient is in good spirits this morning, tolerated surgery well Ate some of her breakfast Reports minimal pain following surgery Was only alert to person and place Bowels and urine are moving appropriately No other complaints at this time Conversation was had between social work and family regarding what location patient will discharge to Labs and Vitals reviewed Objective Exam Last Set of Vital Signs Vital Signs Date Time Temp Pulse Resp B/P (MAP) Pulse Ox O2 Delivery O2 Flow Rate FiO2 08/29/22 08:00 97 Room Air 08/29/22 08:00 36.5 71 18 129/79 (96) 08/28/22 16:25 2.00 08/28/22 09:49 97 Capillary Refill : Less Than 3 SecondsLess Than 3 Seconds I&O Intake and Output 08/29/22 00:00 Intake Total 500 ml Output Total 2375 ml Balance -1875 ml Intake Oral 500 ml Output Urine Total 2375 ml General: Alert, No Acute Distress, Other (Only alert to person and place) HEENT: Atraumatic, EOMI Neck: Supple, No JVD Lungs: Clear to Auscultation Heart: Regular Rate, No Murmurs Abdomen: Soft, No Tenderness Extremities: No Clubbing, No Cyanosis Skin: No Rashes, No Breakdown Neuro: Normal Speech, Sensation Intact (RLE neurovascular intact) Psych/Mental Status: Mental Status NL Results Lab Laboratory Tests 08/29/22 05:16: White Blood Count 8.4, Red Blood Count 3.01L, Hemoglobin 10.0L, Hematocrit 30L, Mean Corpuscular Volume 101H, Mean Corpuscular Hemoglobin 33, Mean Corpuscular Hemoglobin Concent 33, Red Cell Distribution Width 12.2, Platelet Count 131, Mean Platelet Volume 9.0, Immature Granulocyte % (Auto) 0, Neutrophils (%) (Auto) 77H, Lymphocytes (%) (Auto) 13, Monocytes (%) (Auto) 9, Eosinophils (%) (Auto) 0, Basophils (%) (Auto) 0, Neutrophils # (Auto) 6.5, Lymphocytes # (Auto) 1.1, Monocytes # (Auto) 0.7, Eosinophils # (Auto) 0.0, Basophils # (Auto) 0.0, Immature Granulocyte # (Auto) 0.0, Sodium Level 132L, Potassium Level 4.2, Chloride Level 102, Carbon Dioxide Level 19L, Anion Gap 11, Blood Urea Nitrogen 13, Creatinine 0.67, Estimat Glomerular Filtration Rate 87, BUN/Creatinine Ratio 19, Glucose Level 123H, Calcium Level 8.4L, Corrected Calcium 9.1, Total Bilirubin 0.7, Aspartate Amino Transf (AST/SGOT) 22, Alanine Aminotransferase (ALT/SGPT) 17, Alkaline Phosphatase 45, Total Protein 5.2L, Albumin 3.1L Microbiology 08/28/22 MRSA Screen - Final, Complete MRSA not isolated 08/27/22 Urine Culture - Preliminary, Resulted Probable Klebsiella/Enterobact Assessment/Plan Assessment/Plan Assess & Plan/Chief Complaint S/P Right hip hemiarthoplasty- Preformed 08-28-2022- No current acute complications/ healing well POD#1 Orthopedics monitoring Started on Cefazolin Monitor pain-Currently well controlled with morphine and oxycodone PT and OT ordered Post operative X-ray shows no evidence of complication UTI-culture showing possible growth of Klebsiella/Enterobactor Ceftriaxone administered HTN Continue home meds (lisinopril and metoprolol) CAD MPI of 05/17/20 showed no evidence for myocardial ischemia or infarction. LVEF 76% Continue home meds Restarted on aspirin 81 mg by cardiology Glaucoma Restart Timolol and Latanprost Dementia GERD Administer Omeprazole DVT prophylaxsis- Administer Lovenox if orthopedics approves Hyponatremia- Monitior and replace Hyperlipidemia Continue with home atovastatin History of fractured right femoral neck/Fall from standing height on 08-27-2022 History of comminuted subcaptial fracture of right femur/Fall from standing height on 08-27-2022 History of MO- In [id number] Cardiology consulted Clinical Quality Measures Admission Status Admission Dx Fracture of right femoral neck/Fall from standing height Pain management -currently well controlled on morphine Orthopedics consulted-surgery tentatively scheduled for 08-29 Cardiology consulted for surgical clearance Comminuted subcaptial fracture of right femur/Fall from standing height Pain management -currently well controlled on morphine Orthopedics consulted UTI-culture showing possible growth of Klebsiella/Enterobactor Ceftriaxone administered HTN Continue home meds (lisinopril and metoprolol) CAD MPI of 05/17/20 showed no evidence for myocardial ischemia or infarction. LVEF 76% Continue home meds Hyponatremia- Monitior and replace Hyperlipidemia Continue with home simvastatin History of MO- In [id number] Cardiology consulted DVT/VTE Risk/Contraindication: Contraindications-Pharm: Other *list below* Other: surgery CORTNEY RUIZ DO 08/30/22 0528: Subjective Subjective/Events-last exam Patient doing well Confusion noted SNF will be needed at bedside Objective Exam General: Alert, No Acute Distress Lungs: Clear to Auscultation Heart: Regular Rate Neuro: Normal Speech Assessment/Plan Assessment/Plan Assess & Plan/Chief Complaint Monitor hgb Pain control Supervisory-Addendum Brief Verification & Attestation Participated in pt care: history, MDM, physical Personally performed: exam, history, MDM, supervision of care Care discussed with: Medical Student Procedures: n/a Results interpretation: Verified all documentation Verification and Attestation of Medical Student E/M Service A medical student performed and documented this service in my presence. I reviewed and verified all information documented by the medical student and made modifications to such information, when appropriate. I personally performed the physical exam and medical decision making. Cortney Ruiz, Aug 30, 2022,05:27 OMAR CARTAGENA Aug 29, 2022 09:26 CORTNEY RUIZ DO Aug 30, 2022 05:28
[2022-08-29] MEDS: ASPIRIN 81 MG CHEW (CHILDREN'S ASA) PO SCH (09:37)
[2022-08-29] MEDS: CLOPIDOGREL 75 MG (PLAVIX) TABLET PO SCH (09:37)
[2022-08-29] MEDS: [UNRECOGNIZED DRUG - REMARK] OS SCH (10:11)
[2022-08-29] MEDS: TIMOLOL MALEATE 0.5% 5 ML (TIMOPTIC) BTL OP SCH (10:11)
--- NOTE | 2022-08-29 11:40 | Progress Note - Cardiology ---
Cardiology SOAP Progress Note Subjective: No cp or palp or syncope or shortness of breath No n/v/d No focal weakness Objective: I&O/Vital Signs 08/29/22 08/29/22 08/29/22 08/29/22 00:02 03:41 07:00 08:00 Temp 36.5 36.7 36.5 Pulse 77 80 90 71 Resp 18 18 18 B/P (MAP) 136/78 (97) 147/72 (97) 129/79 (96) Pulse Ox 93 95 96 O2 Delivery Room Air Room Air Room Air 08/29/22 08:00 Pulse Ox 97 O2 Delivery Room Air 08/29/22 00:00 Intake Total 500 ml Output Total 1575 ml Balance -1075 ml Weight (Pounds): 151 Weight (Calculated Kilograms): 68.312817 Constitutional: AAO x 3, well-developed, well-nourished Respiratory: No accessory muscle use, No respiratory distress; chest expansion is symmetric, chest is bilaterally symmetric, lungs clear to auscultation Cardiovascular: regular rate-rhythm; No JVD; S1 and S2 Gastrointestional: No tender; soft, round, audible bowel sounds Extremities: other (mild R LE swelling) Neurologic/Psychiatric: grossly intact (right leg not manipulated d/t hip fracture; able to move all other extremities; AAOx3) Skin: No rash on exposed areas, No ulcerations on exposed areas Results/Procedures: Labs Laboratory Tests 08/29/22 05:16: White Blood Count 8.4, Red Blood Count 3.01L, Hemoglobin 10.0L, Hematocrit 30L, Mean Corpuscular Volume 101H, Mean Corpuscular Hemoglobin 33, Mean Corpuscular Hemoglobin Concent 33, Red Cell Distribution Width 12.2, Platelet Count 131, Mean Platelet Volume 9.0, Immature Granulocyte % (Auto) 0, Neutrophils (%) (Auto) 77H, Lymphocytes (%) (Auto) 13, Monocytes (%) (Auto) 9, Eosinophils (%) (Auto) 0, Basophils (%) (Auto) 0, Neutrophils # (Auto) 6.5, Lymphocytes # (Auto) 1.1, Monocytes # (Auto) 0.7, Eosinophils # (Auto) 0.0, Basophils # (Auto) 0.0, Immature Granulocyte # (Auto) 0.0, Sodium Level 132L, Potassium Level 4.2, Chloride Level 102, Carbon Dioxide Level 19L, Anion Gap 11, Blood Urea Nitrogen 13, Creatinine 0.67, Estimat Glomerular Filtration Rate 87, BUN/Creatinine Ratio 19, Glucose Level 123H, Calcium Level 8.4L, Corrected Calcium 9.1, Total Bilirubin 0.7, Aspartate Amino Transf (AST/SGOT) 22, Alanine Aminotransferase (ALT/SGPT) 17, Alkaline Phosphatase 45, Total Protein 5.2L, Albumin 3.1L Microbiology 08/28/22 MRSA Screen - Final, Complete MRSA not isolated 08/27/22 Urine Culture - Final, Complete Klebsiella pneumoniae Laboratory Tests 08/27/22 18:29 08/28/22 05:00 08/28/22 05:25 08/29/22 05:16 A/P: Assessment: Right hip fracture post non-syncopal fall - s/p surgical repair on 08/28/22 ?UTI - management per medical services Coronary artery disease - with a history of anterior wall myocardial infarction in June 2013, treated with primary angioplasty and stenting of the mid left anterior descending artery with Promus Element 2.25 x 32 mm stent. - - - Subsequently, on 11/04/13, following presentation with NSTEMI she underwent stenting of LCXOM with Mini Vision 2x28mm stent. 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 No pseudoaneurysm on u/s of 11/11/13 - MPI of 05/17/20 showed no evidence for myocardial ischemia or infarction. 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 - Echocardiogram of February 18, 2019 showed concentric LVH. LVEF 55-60%. LA is mildly dilated. PASP approx 25 mmHg Hyperlipidemia - statin tx - followed by Dr. Blake (PCP) Chronic joint pain - managed by PCP Carotid dz - Mild bilat carotid disease per u/s of June 2020 Plan: Continue current medication regimen Advise resumption of ASA if ok with surgical services d/t known h/o CAD We recommend continuation of DVT prophylaxis Monitor lab closely LEN CAMPOS MD FACP [facility] Aug 29, 2022 11:40
[2022-08-29 11:56] VITALS: BP 136/81
--- NOTE | 2022-08-29 13:18 | Occupational Therapy Eval ---
OT Evaluation-General/PLF Medical Diagnosis Admission Date Aug 27, 2022 at 19:22 Medical Diagnosis: right bipolar hip replacement Onset Date: Aug 28, 2022 Therapy Diagnosis Therapy Diagnosis: Reduced ADL status Height/Weight Weight (Pounds): 151 Precautions Precautions/Isolations: Fall Prevention, Standard Precautions Referral Physician: Adriana Referral Reason: Evaluation/Treatment Medical History Pertinent Medical History: CAD, Fractures, HTN, [place] Additional Medical History cataracts. L blurry vision Current History Pt presented to ER with R hip pain after falling in her home. She received R hip bipolar on 08/28/22. She lives at home with her spouse in a 1 story home. She was independent with all ADLs, and performed IADLs. They have a roundhouse supervisor come once every 2 weeks. She stated being able to go to grocery store, but she doesn't because she "can't see anything anyway". She reports having blurred vision in L eye and she had coronary surgery a few years ago that did not work. Reviewed History: Yes Social History Home: Single Level Current Living Status: Spouse Entry Into Home: Stairs With Railing Steps Into Home: 3 ADL-Prior Level of Function SCALE: Activities may be completed with or without assistive devices. 4-Eivwujbglz-enmoiar completes the activity by him/herself with no assistance from a helper. 5-Set-up or Clean-up Assistance-helper sets up or cleans up; patient completes activity. [place] assists only prior to or following the activity. 4-Supervision or Touching Assistance-helper provides verbal cues and/or touching/steadying and/or contact guard assistance as patient completes activity. Assistance may be provided throughout the activity or intermittently. 3-Partial/Moderate Assistance-helper does LESS THAN HALF the effort. [place] lifts, holds or supports trunk or limbs, but provides less than half the effort. 2-Substantial/Maximal Assistance-helper does MORE THAN HALF the effort. [place] lifts or holds trunk or limbs and provides more than half the effort. 2-Ususfbews-ekeugu does ALL the effort. Patient does none of the effort to complete the activity. Or, the assistance of 2 or more helpers is required for the patient to complete the activity. If activity was not attempted, code reason: 7-Patient Refused. 9-Not Applicable-not attempted and the patient did not perform the activity before the current illness, exacerbation or injury. 10-Not Attempted due to Environmental Limitations-(lack of equipment, weather restraints, etc.). 88-Not Attempted due to Medical Conditions or Safety Concerns. Self Care: Independent Functional Cognition: Needed Some Help DME/Equipment: Bath Chair, Shower OT Current Status Subjective Pt sitting in chair upon arrival. She agrees to a therapy eval. Appearance Pt left in recliner with in room with all needs within reach. Mental Status/Objective Patient Orientation: Person, Confused, Situation Attachments: IV Current Glasses/Contacts: Yes Hearing Aids: Yes Hand Dominance: Right Upper Extremity ROM WFL ~160 shoulder Upper Extremity Strength 3/5 at shoulder director of broadcast strength: impaired ADL-Treatment Lower Body Dressing (QC): 1 On/Off Footwear (QC): 3 (with education and use of sock aide) Toileting Hygiene (QC): 1 Pt informed and educated of hip precautions. Pt educated on AD (career development associate and sock aide). Pt required mod-max demonstration/education and assist to use career development associate with minimal follow through. Anticipate max assist to thread lower body clothing over feet. Per PT, pt is max assist to stand and would likely need assist with clothing management. Pt able to use sock aide with demonstration and mod verbal cues. Pt's cognition status could limit ability to learn and use AE; further sessions will determine capability. Education OT Patient Education: Correct positioning, Instructions to caregiver, Modified ADL techniques, Progress toward Goal/Update tx plan, Purpose of tx/functional activities, Reviewed precautions, Rehab process, Safety issues, Use of adapted equipment Teaching Recipient: Patient, Family Teaching Methods: Demonstration, Discussion Response to Teaching: Verbalize Understanding, Unable to Return Demonstration, Reinforcement Needed OT Optics Manufacturing Technician Goals Optics Manufacturing Technician Goals Time Frame: Sep 14, 2022 Oral Hygiene (QC): 5 Toileting Hygiene (QC): 4 Shower/Bathe Self (QC): 3 Upper Body Dressing (QC): 5 Lower Body Dressing (QC): 4 On/Off Footwear (QC): 4 Additional Goals: 1-Demonstrate ADL Tasks, 2-Verbalize Understanding, 3-ImproveStrength/Demetris 1=Demonstrate adherence to instructed precautions during ADL tasks. 2=Patient will verbalize/demonstrate understanding of assistive devices/modifications for ADL. 3=Patient will improve strength/tolerance for activity to enable patient to perform ADL's. OT Education/Plan Problem List/Assessment Assessment: Decreased Activ Tolerance, Decreased Safety Aware, Decreased UE Strength, Dependent Transfers, Impaired Bed Mobility, Impaired Cognition, Impaired Coordination, Impaired Funct Balance, Impaired I ADL's, Impaired Self- Care Skills, Restricted Funct UE ROM, Visual-Perceptual Deficit Discharge Recommendations Plan/Recommendations: Continue POC Therapy Discharge Recommendati: Post Acute OT Comment ongoing assessment Treatment Plan/Plan of Care Treatment,Training & Education: Yes Patient would benefit from OT for education, treatment and training to promote independence in ADL's, mobility, safety and/or upper extremity function for ADL's. Plan of Care: ADL Retraining, Caregiver Training, Cognitive Retraining, Functional Mobility, Group Exercise/Act as Ind, UE Funct Exercise/Act Treatment Duration: Sep 14, 2022 Frequency: 3 times per week (3-5 x/week) Estimated Hrs Per Day: .25 hour per day Agreement: Yes Rehab Potential: Fair Time/GCodes Start Time: 11:54 Stop Time: 12:10 Total Time Billed (hr/min): 16 Billed Treatment Time 1 visit Pilar Howell OT Aug 29, 2022 13:18
--- NOTE | 2022-08-29 14:49 | Physical Therapy Daily Note ---
PT Daily Note-Current Subjective Patient in bed pre tx, agrees to PT but doesn't want to ambulate, patient states nursing just got her back into bed, agrees to exercises in bed, has 6/10 pain in right hip. Pain Section J - Health Conditions 1. Rarely or not at all 2. Occasionally 3. Frequently 4. Almost constantly 8. Unable to answer Pain Effect on Sleep: 3 Pain Interference with Therapy: 3 Pain Interference w/Day-to-Day: 3 Appearance Patient in bed post tx with nurse call, phone, tray, all needs met, in room. Mental Status Patient Orientation: Person, Place, Situation Transfers SCALE: Activities may be completed with or without assistive devices. 2-Gssznfkena-xeayxmn completes the activity by him/herself with no assistance from a helper. 5-Set-up or Clean-up Assistance-helper sets up or cleans up; patient completes activity. [place] assists only prior to or following the activity. 4-Supervision or Touching Assistance-helper provides verbal cues and/or touching/steadying and/or contact guard assistance as patient completes activity. Assistance may be provided throughout the activity or intermittently. 3-Partial/Moderate Assistance-helper does LESS THAN HALF the effort. [place] lifts, holds or supports trunk or limbs, but provides less than half the effort. 2-Substantial/Maximal Assistance-helper does MORE THAN HALF the effort. [place] lifts or holds trunk or limbs and provides more than half the effort. 8-Qfqgelyhn-hqpqvl does ALL the effort. Patient does none of the effort to complete the activity. Or, the assistance of 2 or more helpers is required for the patient to complete the activity. If activity was not attempted, code reason: 7-Patient Refused. 9-Not Applicable-not attempted and the patient did not perform the activity before the current illness, exacerbation or injury. 10-Not Attempted due to Environmental Limitations-(lack of equipment, weather restraints, etc.). 88-Not Attempted due to Medical Conditions or Safety Concerns. Weight Bearing Right Lower Extremity: Right Weight Bearing/Tolerated Exercises Supine Ex: Ankle pumps, Quad Set, Glut sets, Heel Slides, Short Arc Quads, Straight leg raise, Hip abd/add Supine Reps: 10 (RLE) Treatments RLE ROM Assessment Current Status: Fair Progress Abduction pillow on when done. Improving AROM. PT Jewelry Cutter Goals Jewelry Cutter Goals PT Jewelry Cutter Goals Time Frame: Sep 05, 2022 Roll Left & Right (QC): 6 Sit to Lying (QC): 4 Lying-Sitting on Side/Bed(QC): 4 Sit to Stand (QC): 4 Chair/Mse-eb-Gwpkk Xfer(QC): 4 Walk 10 feet (QC): 4 Walk 50ft with 2 Turns (QC): 4 Walk 150 ft (QC): 4 PT Plan Problem List Problem List: Activity Tolerance, Functional Strength, Safety, Balance, Gait, Transfer, Bed Mobility, ROM Treatment/Plan Treatment Plan: Continue Plan of Care Treatment Plan: Bed Mobility, Education, Functional Activity Demetris, Functional Strength, Gait, Safety, Therapeutic Exercise, Transfers Treatment Duration: Sep 05, 2022 Frequency: 11 times per week Estimated Hrs Per Day: .25 hour per day Patient and/or Family Agrees t: Yes Safety Risks/Education Patient Education: Reviewed Precautions, Correct Positioning, Safety Issues Teaching Recipient: Patient Teaching Methods: Demonstration, Discussion Response to Teaching: Reinforcement Needed Time/GCodes Time In: 1425 Time Out: 1433 Total Billed Treatment Time: 8 Total Billed Treatment 1 visit EX VALENTINE MONTOYA PT Aug 29, 2022 14:48
[2022-08-29 15:13] VITALS: BP 113/57
[2022-08-29] MEDS: ENOXAPARIN 40 MG/0.4 ML (LOVENOX) SYR SC SCH (19:44)
[2022-08-29 19:52] VITALS: BP 121/58
[2022-08-29] MEDS ORDERED: LATANOPROST 0.005% (XALATAN) OPHTH SOLN 2.5 ML OU SCH (21:00)
[2022-08-29] MEDS ORDERED: NON-FORMULARY MEDICATION 1 EA EA (Bimatoprost (Lumigan) 1 DROP) OU SCH (21:00)
[2022-08-30] VITALS (7 sets, daily range): BP systolic 133–163; BP diastolic 64–81
[2022-08-30] MEDS: NS IV 1000 ML 1,000 ML IV SCH ×3 (00:20→23:06)
[2022-08-30 05:32] LABS: BASOPHILS % (AUTO) 0 % (0-10); EOSINOPHILS # (AUTO) 0.2 10^3/uL (0.0-0.3); EOSINOPHILS % (AUTO) 3 % (0-10); HEMATOCRIT 27 % (35-52); LYMPHOCYTES # (AUTO) 1.3 10^3/uL (1.0-4.0); LYMPHOCYTES % (AUTO) 17 % (12-44); MEAN CORPUSCULAR HEMOGLOBIN 34 pg (25-34); MEAN CORPUSCULAR HGB CONC 34 g/dL (32-36); MEAN CORPUSCULAR VOLUME 100 fL (80-99); MEAN PLATELET VOLUME 9.4 fL (9.0-12.2); MONOCYTES # (AUTO) 0.6 10^3/uL (0.0-1.0); MONOCYTES % (AUTO) 8 % (0-12); NEUTROPHILS # (AUTO) 5.1 10^3/uL (1.8-7.8); NEUTROPHILS % (AUTO) 71 % (42-75); PLATELET COUNT 121 10^3/uL (130-400); WHITE BLOOD COUNT 7.2 10^3/uL (4.3-11.0)
[2022-08-30 05:40] LABS: ALBUMIN 3.1 GM/DL (3.2-4.5)
[2022-08-30 05:41] LABS: POTASSIUM 3.8 MMOL/L (3.6-5.0)
[2022-08-30 05:42] LABS: CALCIUM 7.9 MG/DL (8.5-10.1)
[2022-08-30 05:43] LABS: TOTAL PROTEIN 5.3 GM/DL (6.4-8.2)
[2022-08-30 05:45] LABS: BILIRUBIN,TOTAL 0.6 MG/DL (0.1-1.0)
[2022-08-30 05:47] LABS: CREATININE SERUM 0.66 MG/DL (0.60-1.30)
[2022-08-30] MEDS: lisINopril 5 MG (PRINIVIL) TABLET PO SCH (08:26)
[2022-08-30] MEDS: SENNOSIDES 8.6 MG (SENOKOT) TAB PO SCH ×2 (08:28→19:13)
[2022-08-30] MEDS: ASPIRIN 81 MG CHEW (CHILDREN'S ASA) PO SCH (08:28)
[2022-08-30] MEDS: PANTOPRAZOLE 20 MG TABLET (PROTONIX) PO SCH (08:29)
[2022-08-30] MEDS: DOCUSATE SODIUM 100 MG (COLACE) CAP PO SCH ×2 (08:29→19:13)
[2022-08-30] MEDS: CLOPIDOGREL 75 MG (PLAVIX) TABLET PO SCH (08:30)
[2022-08-30] MEDS: TIMOLOL MALEATE 0.5% 5 ML (TIMOPTIC) BTL OP SCH (08:31)
[2022-08-30] MEDS: [UNRECOGNIZED DRUG - REMARK] OS SCH (08:32)
--- NOTE | 2022-08-30 08:40 | Progress Note - Cardiology ---
Cardiology SOAP Progress Note Objective: I&O/Vital Signs 08/30/22 08/30/22 08/30/22 08/30/22 07:00 08:00 08:02 11:17 Temp 37.1 36.9 Pulse 80 75 72 Resp 18 18 B/P (MAP) 163/80 (107) 133/64 (87) Pulse Ox 96 97 O2 Delivery Room Air Room Air Room Air 08/30/22 15:32 Temp 36.8 Pulse 74 Resp 16 B/P (MAP) 144/75 (98) Pulse Ox 96 O2 Delivery Room Air 08/30/22 00:00 Intake Total 1350 ml Output Total 950 ml Balance 400 ml Weight (Pounds): 151 Weight (Calculated Kilograms): [id number] Constitutional: AAO x 3, well-developed, well-nourished Respiratory: No accessory muscle use, No respiratory distress; chest expansion is symmetric, chest is bilaterally symmetric, lungs clear to auscultation Cardiovascular: regular rate-rhythm; No JVD; S1 and S2 Gastrointestional: No tender; soft, round, audible bowel sounds Extremities: other (mild R LE swelling) Neurologic/Psychiatric: grossly intact (able to move all other extremities; AAOx3) Skin: No rash on exposed areas, No ulcerations on exposed areas Results/Procedures: Labs Laboratory Tests 08/30/22 05:00: White Blood Count 7.2, Red Blood Count 2.69L, Hemoglobin 9.0L, Hematocrit 27L, Mean Corpuscular Volume 100H, Mean Corpuscular Hemoglobin 34, Mean Corpuscular Hemoglobin Concent 34, Red Cell Distribution Width 12.7, Platelet Count 121L, Mean Platelet Volume 9.4, Immature Granulocyte % (Auto) 1, Neutrophils (%) (Auto) 71, Lymphocytes (%) (Auto) 17, Monocytes (%) (Auto) 8, Eosinophils (%) (Auto) 3, Basophils (%) (Auto) 0, Neutrophils # (Auto) 5.1, Lymphocytes # (Auto) 1.3, Monocytes # (Auto) 0.6, Eosinophils # (Auto) 0.2, Basophils # (Auto) 0.0, Immature Granulocyte # (Auto) 0.1, Sodium Level 137, Potassium Level 3.8, Chloride Level 106, Carbon Dioxide Level 20L, Anion Gap 11, Blood Urea Nitrogen 13, Creatinine 0.66, Estimat Glomerular Filtration Rate 87, BUN/Creatinine Ratio 20, Glucose Level 110H, Calcium Level 7.9L, Corrected Calcium 8.6, Total Bilirubin 0.6, Aspartate Amino Transf (AST/SGOT) 22, Alanine Aminotransferase (ALT/SGPT) 11, Alkaline Phosphatase 47, Total Protein 5.3L, Albumin 3.1L Microbiology 08/28/22 MRSA Screen - Final, Complete MRSA not isolated 08/27/22 Urine Culture - Final, Complete Klebsiella pneumoniae A/P: Assessment: Right hip fracture post non-syncopal fall - s/p surgical repair on 08/28/22 Post op anemia - management per medical/surgical services ?UTI - management per medical services Coronary artery disease - with a history of anterior wall myocardial infarction in June 2013, treated with primary angioplasty and stenting of the mid left anterior descending artery with Promus Element 2.25 x 32 mm stent. - - - Subsequently, on 11/04/13, following presentation with NSTEMI she underwent stenting of LCXOM with Mini Vision 2x28mm stent. 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 No pseudoaneurysm on u/s of 11/11/13 - MPI of 05/17/20 showed no evidence for myocardial ischemia or infarction. 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 - Echocardiogram of February 18, 2019 showed concentric LVH. LVEF 55-60%. LA is mildly dilated. PASP approx 25 mmHg Hyperlipidemia - statin tx - followed by Dr. Blake (PCP) Chronic joint pain - managed by PCP Carotid dz - Mild bilat carotid disease per u/s of June 2020 Plan: Continue current medication regimen Post-op anemia - management per medical/surgical services We recommend continuation of DVT prophylaxis Monitor lab closely SONNY KNIGHT Aug 30, 2022 08:40
[2022-08-30] MEDS ORDERED: [UNRECOGNIZED DRUG - REMARK] OS SCH (09:00)
--- NOTE | 2022-08-30 09:15 | Progress Note - Ortho ---
Progress Note Subjective Date of Exam 08/30/22 Chief Complaint POD #2 R Hip Bipolar HPI/Events since last exam was able to take a couple of steps and sit in chair yesterday, pain controlled Review of Systems - Allergies: Coded Allergies: No Known Drug Allergies (Unverified , 06/02/13) Home Meds Reported Medications Omeprazole (Omeprazole) 20 Mg Tab.rap.dr, 20 MG PO DAILY, EA 08/28/22 Aspirin (Aspirin EC) 81 Mg Tablet.dr, 81 MG PO DAILY, TAB 08/28/22 Timolol Maleate (Timolol Maleate 0.5%) 0.5 % Drops, 1 DROP OP DAILY, DROP 08/28/22 Clopidogrel Bisulfate (Clopidogrel) 75 Mg Tablet, 75 MG PO DAILY, TAB 08/28/22 Bimatoprost (Lumigan) 0.01 % Drops, 1 DROP OU HS, DROP 08/28/22 Bromfenac Sodium (Prolensa) 0.07 % Drops, 1 DROP OS DAILY, DROP 08/28/22 Metoprolol Succinate (Metoprolol Succinate) 25 Mg Tab.er.24h, 25 MG PO DAILY, TAB 08/28/22 Atorvastatin Calcium (Atorvastatin Calcium) 40 Mg Tablet, 40 MG PO DAILY, TAB 08/28/22 Lisinopril (Lisinopril) 2.5 Mg Tablet, 2.5 MG PO DAILY, TAB 08/28/22 Discontinued Reported Medications Omeprazole (Omeprazole) 40 Mg Capsule.dr, 40 MG PO DAILY, CAP 08/28/22 Ca Carbonate/Vitamin D3/Vit K (Viactiv Soft Chew Tablet) 1 Each Tab.chew, 1 TAB PO BID 11/05/13 Travoprost (Travatan Z) 5 Ml Drops, 1 DROP OD HS 11/05/13 Simvastatin (Simvastatin) 40 Mg Tablet, 40 MG PO DAILY 11/04/13 Lisinopril (Prinivil) 2.5 Mg Tablet, 2.5 MG PO DAILY 06/04/13 Metoprolol Succinate (Toprol Xl 25MG) 25 Mg Tab.sr.24h, 25 MG PO DAILY 06/04/13 Clopidogrel Bisulfate (Plavix 75 Mg) 75 Mg Tablet, 75 MG PO DAILY 06/04/13 Aspirin (Aspirin 81 Mg Chew Tab) 81 Mg Chew, 81 MG PO DAILY 06/04/13 Timolol Maleate/Dorzolam Hcl (Dorzolamide-Timolol Eye Drops) 10 Ml Drops, 1 DROP OU BID 06/02/13 Hydrocortisone/Oatmeal/Aloe/E (Hydrocortisone 1% Cream) 28.4 Gm Cream.gm., 1 GM TOP TID PRN for RASH APPLY TO AFFECTED AREA NEEDED FOR RASH AND ITCHING 06/02/13 Discontinued Scripts Nitrofurantoin Monohyd/M-Cryst (Macrobid 100 mg Capsule) 100 Mg Capsule, 1 TAB PO BID for 7 Days, #14 CAP 0 Refills Prov:ELSY MORALES 12/22/21 [Lisinopril] (Zestril) No Conflict Check, 2.5 MG PO BID, #60 5 Refills Prov:SONNY KNIGHT DAMPER FITTER 11/06/13 Objective Exam Right Hip: Dressing C/D/I, +DF of ankle, no s/s of DVT Vital Signs Vital Signs Date Time Temp Pulse Resp B/P (MAP) Pulse Ox O2 Delivery O2 Flow Rate FiO2 08/30/22 08:02 37.1 75 18 163/80 (107) 96 Room Air 08/30/22 07:00 80 08/30/22 04:24 36.3 82 18 143/78 (99) 95 Room Air 08/30/22 00:29 77 08/30/22 00:04 37.2 82 18 139/64 (89) 94 Room Air 08/29/22 20:00 97 Room Air 08/29/22 19:52 37.4 83 18 121/58 (79) 96 Room Air 08/29/22 19:52 88 08/29/22 15:13 36.1 72 20 113/57 (75) 94 Room Air 08/29/22 13:00 75 08/29/22 11:56 36.9 67 21 136/81 (99) 97 Room Air I & O 08/30/22 07:00 Intake Total 1550 ml Output Total 1250 ml Balance 300 ml Lab Results Laboratory Tests 08/30/22 05:00: White Blood Count 7.2, Red Blood Count 2.69L, Hemoglobin 9.0L, Hematocrit 27L, Mean Corpuscular Volume 100H, Mean Corpuscular Hemoglobin 34, Mean Corpuscular Hemoglobin Concent 34, Red Cell Distribution Width 12.7, Platelet Count 121L, Mean Platelet Volume 9.4, Immature Granulocyte % (Auto) 1, Neutrophils (%) (Auto) 71, Lymphocytes (%) (Auto) 17, Monocytes (%) (Auto) 8, Eosinophils (%) (Auto) 3, Basophils (%) (Auto) 0, Neutrophils # (Auto) 5.1, Lymphocytes # (Auto) 1.3, Monocytes # (Auto) 0.6, Eosinophils # (Auto) 0.2, Basophils # (Auto) 0.0, Immature Granulocyte # (Auto) 0.1, Sodium Level 137, Potassium Level 3.8, Chloride Level 106, Carbon Dioxide Level 20L, Anion Gap 11, Blood Urea Nitrogen 13, Creatinine 0.66, Estimat Glomerular Filtration Rate 87, BUN/Creatinine Ratio 20, Glucose Level 110H, Calcium Level 7.9L, Corrected Calcium 8.6, Total Bilirubin 0.6, Aspartate Amino Transf (AST/SGOT) 22, Alanine Aminotransferase (ALT/SGPT) 11, Alkaline Phosphatase 47, Total Protein 5.3L, Albumin 3.1L Microbiology 08/28/22 MRSA Screen - Final, Complete MRSA not isolated 08/27/22 Urine Culture - Final, Complete Klebsiella pneumoniae Assessment and Plan Assessment Right Femoral Neck Fractures s/p Right Hip Bipolar Problem List Right Femoral Neck Fractures s/p Right Hip Bipolar Plan PT/OT DVT Prophylaxis Final Diagonsis Right Femoral Neck Fractures s/p Right Hip Bipolar Level of the visit: Level 3 (postop global) Clinical Quality Measures DVT/VTE Risk/Contraindication: Contraindications-Pharm: Other *list below* Other: surgery HUNTER MARCANO MD Aug 30, 2022 09:15
--- NOTE | 2022-08-30 09:43 | Occupational Ther Daily Note ---
OT Current Status-Daily Note Subjective Pt alert in recliner. Pt agrees to therapy. No c/o pain at this time. Mental Status/Objective Patient Orientation: Person, Place, Time, Situation ADL-Treatment Pt independent in eating. Therapy Code Descriptions/Definitions Functional [place] Measure: 0=Not Assessed/NA 4=Minimal Assistance 1=Total Assistance 5=Supervision or Setup 2=Maximal Assistance 6=Modified [place] 3=Moderate Assistance 7=Complete IndependenceSCALE: Activities may be completed with or without assistive devices. 2-Zoxeyskfze-bkfehkt completes the activity by him/herself with no assistance from a helper. 5-Set-up or Clean-up Assistance-helper sets up or cleans up; patient completes activity. [place] assists only prior to or following the activity. 4-Supervision or Touching Assistance-helper provides verbal cues and/or touching/steadying and/or contact guard assistance as patient completes activity. Assistance may be provided throughout the activity or intermittently. 3-Partial/Moderate Assistance-helper does LESS THAN HALF the effort. [place] li fts, holds or supports trunk or limbs, but provides less than half the effort. 2-Substantial/Maximal Assistance-helper does MORE THAN HALF the effort. [place] lifts or holds trunk or limbs and provides more than half the effort. 7-Hkpsnyxhl-vwzodp does ALL the effort. Patient does none of the effort to complete the activity. Or, the assistance of 2 or more helpers is required for the patient to complete the activity. If activity was not attempted, code reason: 7-Patient Refused. 9-Not Applicable-not attempted and the patient did not perform the activity before the current illness, exacerbation or injury. 10-Not Attempted due to Environmental Limitations-(lack of equipment, weather restraints, etc.). 88-Not Attempted due to Medical Conditions or Safety Concerns. Eating (QC): 6 Pt refused to complete any standing tasks, stating that PT already had worked with her and she didn't want to move anymore. Other Treatment Pt completed 3 B UE exercises 3 sets 10 reps, with green theraband to strengthen B UE for daily functional tasks. Skilled instruction and demonstration were given. Pt required verbal cues to continue completing task. Pt left in recliner call light/phone in reach. All needs met in room. Education OT Patient Education: Exercise program Teaching Recipient: Patient Teaching Methods: Demonstration, Discussion Response to Teaching: Verbalize Understanding, Return Demonstration OT Snf Goals Snf Goals Time Frame: Sep 14, 2022 Oral Hygiene (QC): 5 Toileting Hygiene (QC): 4 Shower/Bathe Self (QC): 3 Upper Body Dressing (QC): 5 Lower Body Dressing (QC): 4 On/Off Footwear (QC): 4 Additional Goals: 1-Demonstrate ADL Tasks, 2-Verbalize Understanding, 3-ImproveStrength/Demetris 1=Demonstrate adherence to instructed precautions during ADL tasks. 2=Patient will verbalize/demonstrate understanding of assistive devices/modifications for ADL. 3=Patient will improve strength/tolerance for activity to enable patient to perform ADL's. OT Education/Plan Problem List/Assessment Assessment: Decreased Activ Tolerance, Decreased UE Strength Discharge Recommendations Plan/Recommendations: Continue POC Treatment Plan/Plan of Care Patient would benefit from OT for education, treatment and training to promote independence in ADL's, mobility, safety and/or upper extremity function for ADL's. Plan of Care: ADL Retraining, Caregiver Training, Cognitive Retraining, Functional Mobility, Group Exercise/Act as Ind, UE Funct Exercise/Act Treatment Duration: Sep 14, 2022 Frequency: 3 times per week (3-5 x/week) Estimated Hrs Per Day: .25 hour per day Agreement: Yes Rehab Potential: Fair Time/GCodes Start Time: 08:57 Stop Time: 09:12 Total Time Billed (hr/min): 15 Billed Treatment Time 1 visit EX 1 (15 min) CHARLENE MONTES DE OCA Aug 30, 2022 09:43
[2022-08-30] MEDS ORDERED: SENNA W/DOCUSATE (SENOKOT S) TABLET PO NR (10:30)
[2022-08-30] MEDS ORDERED: LACTULOSE SYRUP 10GM/15ML (ENULOSE) 30ML UDC PO NR (10:30)
--- NOTE | 2022-08-30 11:07 | Physical Therapy Daily Note ---
PT Daily Note-Current Subjective Patient has difficulty with following simple direction. Spouse present. Pain Section J - Health Conditions 1. Rarely or not at all 2. Occasionally 3. Frequently 4. Almost constantly 8. Unable to answer Pain Effect on Sleep: 3 Pain Interference with Therapy: 3 Pain Interference w/Day-to-Day: 3 Mental Status Patient Orientation: Confused Attachments: Nicholson Catheter, IV Transfers SCALE: Activities may be completed with or without assistive devices. 5-Ggrqsymkvp-lxpcfmr completes the activity by him/herself with no assistance from a helper. 5-Set-up or Clean-up Assistance-helper sets up or cleans up; patient completes activity. [place] assists only prior to or following the activity. 4-Supervision or Touching Assistance-helper provides verbal cues and/or touching/steadying and/or contact guard assistance as patient completes activity. Assistance may be provided throughout the activity or intermittently. 3-Partial/Moderate Assistance-helper does LESS THAN HALF the effort. [place] lifts, holds or supports trunk or limbs, but provides less than half the effort. 2-Substantial/Maximal Assistance-helper does MORE THAN HALF the effort. [place] lifts or holds trunk or limbs and provides more than half the effort. 9-Lmatsoudh-vswuqw does ALL the effort. Patient does none of the effort to complete the activity. Or, the assistance of 2 or more helpers is required for the patient to complete the activity. If activity was not attempted, code reason: 7-Patient Refused. 9-Not Applicable-not attempted and the patient did not perform the activity before the current illness, exacerbation or injury. 10-Not Attempted due to Environmental Limitations-(lack of equipment, weather restraints, etc.). 88-Not Attempted due to Medical Conditions or Safety Concerns. Lying to Sitting/Side of Bed(Q: 1 Sit to Stand (QC): 1 Chair/Eqe-mi-Dguja Xfer(QC): 1 Weight Bearing Right Lower Extremity: Right Weight Bearing/Tolerated Gait Training Distance: 2 steps Gait Assistive Device: FWW patient took 2 steps and then stopped standing requiring dependent assist to sit in recliner. Exercises Supine Ex: Ankle pumps, Quad Set, Heel Slides Supine Reps: 12 (AAROM) Seated Therapy Exercises: Ankle pumps, Long arc quads Seated Reps: 12 (AAROM) Assessment Patient is impulsive to sit unsafely on this date. Patient required dependent assist with all mobility and is up in recliner with chair alarm activated. RN notified. PT Sander And Buffer Goals Longterm Goals PT Sander And Buffer Goals Time Frame: Sep 05, 2022 Roll Left & Right (QC): 6 Sit to Lying (QC): 4 Lying-Sitting on Side/Bed(QC): 4 Sit to Stand (QC): 4 Chair/Dac-eq-Kxyfk Xfer(QC): 4 Walk 10 feet (QC): 4 Walk 50ft with 2 Turns (QC): 4 Walk 150 ft (QC): 4 PT Plan Treatment/Plan Treatment Plan: Continue Plan of Care Treatment Plan: Bed Mobility, Education, Functional Activity Demetris, Functional Strength, Gait, Safety, Therapeutic Exercise, Transfers Treatment Duration: Sep 05, 2022 Frequency: 11 times per week Estimated Hrs Per Day: .25 hour per day Patient and/or Family Agrees t: Yes Time/GCodes Time In: 844 Time Out: 908 Total Billed Treatment Time: 24 Total Billed Treatment 1 visit EX 14 min GT 10 min NATALYA ARCOS PT Aug 30, 2022 11:07
--- NOTE | 2022-08-30 11:16 | Progress Note ---
OMAR CARTAGENA 08/30/22 1116: Subjective Date Seen by a Provider: Aug 30, 2022 Time Seen by a Provider: 10:56 Subjective/Events-last exam Patient is in good spirits today Pain is currently well managed Incision site is healing well Patient restarted on home meds Nicholson catheter currently in/planning to remove No bowel movement since surgery Confusion still present Patient was able to ambulate from bed to chair Eating well Labs and Vitals reviewed Objective Exam Last Set of Vital Signs Vital Signs Date Time Temp Pulse Resp B/P (MAP) Pulse Ox O2 Delivery O2 Flow Rate FiO2 08/30/22 08:02 37.1 75 18 163/80 (107) 96 Room Air 08/28/22 16:25 2.00 08/28/22 09:49 97 Capillary Refill : Less Than 3 SecondsLess Than 3 Seconds I&O Intake and Output 08/30/22 00:00 Intake Total 1500 ml Output Total 1200 ml Balance 300 ml Intake Oral 1500 ml Output Urine Total 1200 ml General: Alert, No Acute Distress, Other (Patient is alert and orientated to person and place) HEENT: Atraumatic, EOMI Neck: Supple, No Thyromegaly Lungs: Clear to Auscultation Heart: Regular Rate, No Murmurs Abdomen: Normal Bowel Sounds, Soft, No Tenderness Extremities: No Clubbing, No Cyanosis Skin: No Rashes, No Breakdown Neuro: Normal Tone, Sensation Intact Psych/Mental Status: Mental Status NL Results Lab Laboratory Tests 08/30/22 05:00: White Blood Count 7.2, Red Blood Count 2.69L, Hemoglobin 9.0L, Hematocrit 27L, Mean Corpuscular Volume 100H, Mean Corpuscular Hemoglobin 34, Mean Corpuscular Hemoglobin Concent 34, Red Cell Distribution Width 12.7, Platelet Count 121L, Mean Platelet Volume 9.4, Immature Granulocyte % (Auto) 1, Neutrophils (%) (Auto) 71, Lymphocytes (%) (Auto) 17, Monocytes (%) (Auto) 8, Eosinophils (%) (A uto) 3, Basophils (%) (Auto) 0, Neutrophils # (Auto) 5.1, Lymphocytes # (Auto) 1.3, Monocytes # (Auto) 0.6, Eosinophils # (Auto) 0.2, Basophils # (Auto) 0.0, Immature Granulocyte # (Auto) 0.1, Sodium Level 137, Potassium Level 3.8, Chloride Level 106, Carbon Dioxide Level 20L, Anion Gap 11, Blood Urea Nitrogen 13, Creatinine 0.66, Estimat Glomerular Filtration Rate 87, BUN/Creatinine Ratio 20, Glucose Level 110H, Calcium Level 7.9L, Corrected Calcium 8.6, Total Bilirubin 0.6, Aspartate Amino Transf (AST/SGOT) 22, Alanine Aminotransferase (ALT/SGPT) 11, Alkaline Phosphatase 47, Total Protein 5.3L, Albumin 3.1L Microbiology 08/28/22 MRSA Screen - Final, Complete MRSA not isolated 08/27/22 Urine Culture - Final, Complete Klebsiella pneumoniae Assessment/Plan Assessment/Plan Assess & Plan/Chief Complaint S/P Right hip hemiarthoplasty- Preformed 08-28-2022- No current acute complications/ healing well POD#2 Orthopedics monitoring Monitor pain-Currently well controlled with morphine and oxycodone Continue PT and OT Post operative X-ray shows no evidence of complication UTI-culture growing Klebsiella Ceftriaxone administered HTN Continue home meds (lisinopril and metoprolol) Post Operative Anemia- Currently 9.0 Continue to monitor CAD MPI of 05/17/20 showed no evidence for myocardial ischemia or infarction. LVEF 76% Continue home meds Restarted on aspirin 81 mg by cardiology Glaucoma Restart Timolol and Latanprost Dementia GERD Administer Omeprazole DVT prophylaxsis- Continue Lovenox and Plavix Hyponatremia- Resolved Hyperlipidemia Continue with home atovastatin History of fractured right femoral neck/Fall from standing height on 08-27-2022 History of comminuted subcaptial fracture of right femur/Fall from standing height on 08-27-2022 History of SC- In [id number] Cardiology consulted Clinical Quality Measures Admission Status Admission Dx Fracture of right femoral neck/Fall from standing height Pain management -currently well controlled on morphine Orthopedics consulted-surgery tentatively scheduled for 08-29 Cardiology consulted for surgical clearance Comminuted subcaptial fracture of right femur/Fall from standing height Pain management -currently well controlled on morphine Orthopedics consulted UTI-culture showing possible growth of Klebsiella/Enterobactor Ceftriaxone administered HTN Continue home meds (lisinopril and metoprolol) CAD MPI of 05/17/20 showed no evidence for myocardial ischemia or infarction. LVEF 76% Continue home meds Hyponatremia- Monitior and replace Hyperlipidemia Continue with home simvastatin History of SC- In [id number] Cardiology consulted DVT/VTE Risk/Contraindication: Contraindications-Pharm: Other *list below* Other: surgery CORTNEY RUIZ DO 08/31/22 0522: Subjective Subjective/Events-last exam No major issues Hgb decreased Pain controlled Review of Systems General: Fatigue, Malaise Musculoskeletal: leg pain Neurological: Confusion Objective Exam General: Alert, No Acute Distress Lungs: Clear to Auscultation Heart: Regular Rate Abdomen: Normal Bowel Sounds Assessment/Plan Assessment/Plan Assess & Plan/Chief Complaint Monitor confusion Supervisory-Addendum Brief Verification & Attestation Participated in pt care: history, MDM, physical Personally performed: exam, history, MDM, supervision of care Care discussed with: Medical Student Procedures: n/a Results interpretation: Verified all documentation Verification and Attestation of Medical Student E/M Service A medical student performed and documented this service in my presence. I reviewed and verified all information documented by the medical student and made modifications to such information, when appropriate. I personally performed the physical exam and medical decision making. Cortney Ruiz, Aug 31, 2022,05:17 OMAR CARTAGENA Aug 30, 2022 11:16 CORTNEY RUIZ DO Aug 31, 2022 05:22
--- NOTE | 2022-08-30 11:54 | Progress Note - Cardiology ---
Cardiology SOAP Progress Note Subjective: No cp or palp or syncope No shortness of breath at rest No n/v/d Gen weakness Objective: I&O/Vital Signs 08/30/22 08/30/22 08/30/22 08/30/22 00:04 00:29 04:24 07:00 Temp 37.2 36.3 Pulse 82 77 82 80 Resp 18 18 B/P (MAP) 139/64 (89) 143/78 (99) Pulse Ox 94 95 O2 Delivery Room Air Room Air 08/30/22 08/30/22 08:02 11:17 Temp 37.1 36.9 Pulse 75 72 Resp 18 18 B/P (MAP) 163/80 (107) 133/64 (87) Pulse Ox 96 97 O2 Delivery Room Air Room Air 08/30/22 00:00 Intake Total 1350 ml Output Total 950 ml Balance 400 ml Weight (Pounds): 151 Weight (Calculated Kilograms): 68.345021 Constitutional: AAO x 3, well-developed, well-nourished Respiratory: No accessory muscle use, No respiratory distress; chest expansion is symmetric, chest is bilaterally symmetric, lungs clear to auscultation Cardiovascular: regular rate-rhythm; No JVD; S1 and S2 Gastrointestional: No tender; soft, round, audible bowel sounds Extremities: other (mild R LE swelling) Neurologic/Psychiatric: grossly intact (able to move all other extremities; AAOx3) Skin: No rash on exposed areas, No ulcerations on exposed areas Results/Procedures: Labs Laboratory Tests 08/30/22 05:00: White Blood Count 7.2, Red Blood Count 2.69L, Hemoglobin 9.0L, Hematocrit 27L, Mean Corpuscular Volume 100H, Mean Corpuscular Hemoglobin 34, Mean Corpuscular Hemoglobin Concent 34, Red Cell Distribution Width 12.7, Platelet Count 121L, Mean Platelet Volume 9.4, Immature Granulocyte % (Auto) 1, Neutrophils (%) (Auto) 71, Lymphocytes (%) (Auto) 17, Monocytes (%) (Auto) 8, Eosinophils (%) (Auto) 3, Basophils (%) (Auto) 0, Neutrophils # (Auto) 5.1, Lymphocytes # (Auto) 1.3, Monocytes # (Auto) 0.6, Eosinophils # (Auto) 0.2, Basophils # (Auto) 0.0, Immature Granulocyte # (Auto) 0.1, Sodium Level 137, Potassium Level 3.8, Chloride Level 106, Carbon Dioxide Level 20L, Anion Gap 11, Blood Urea Nitrogen 13, Creatinine 0.66, Estimat Glomerular Filtration Rate 87, BUN/Creatinine Ratio 20, Glucose Level 110H, Calcium Level 7.9L, Corrected Calcium 8.6, Total Bilirubin 0.6, Aspartate Amino Transf (AST/SGOT) 22, Alanine Aminotransferase (ALT/SGPT) 11, Alkaline Phosphatase 47, Total Protein 5.3L, Albumin 3.1L Microbiology 08/28/22 MRSA Screen - Final, Complete MRSA not isolated 08/27/22 Urine Culture - Final, Complete Klebsiella pneumoniae Laboratory Tests 08/29/22 05:16 08/30/22 05:00 A/P: Assessment: Right hip fracture post non-syncopal fall - s/p surgical repair on 08/28/22 Post op anemia - management per medical/surgical services ?UTI - management per medical services Coronary artery disease - with a history of anterior wall myocardial infarction in June 2013, treated with primary angioplasty and stenting of the mid left anterior descending artery with Promus Element 2.25 x 32 mm stent. - - - Subsequently, on 11/04/13, following presentation with NSTEMI she underwent stenting of LCXOM with Mini Vision 2x28mm stent. 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 No pseudoaneurysm on u/s of 11/11/13 - MPI of 05/17/20 showed no evidence for myocardial ischemia or infarction. 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 - Echocardiogram of February 18, 2019 showed concentric LVH. LVEF 55-60%. LA is mildly dilated. PASP approx 25 mmHg Hyperlipidemia - statin tx - followed by Dr. Blake (PCP) Chronic joint pain - managed by PCP Carotid dz - Mild bilat carotid disease per u/s of June 2020 Plan: Continue current medication regimen Post-op anemia - management per medical/surgical services We recommend continuation of DVT prophylaxis Monitor lab closely D/c tele (per pt request) LEN CAMPOS MD FACP [facility] Aug 30, 2022 11:53
--- NOTE | 2022-08-30 14:17 | Physical Therapy Daily Note ---
PT Daily Note-Current Subjective Patient in recliner and leaning to the right (severe). Pain Section J - Health Conditions 1. Rarely or not at all 2. Occasionally 3. Frequently 4. Almost constantly 8. Unable to answer Pain Effect on Sleep: 3 Pain Interference with Therapy: 3 Pain Interference w/Day-to-Day: 3 Transfers SCALE: Activities may be completed with or without assistive devices. 8-Jfdgrkbppy-ygkobau completes the activity by him/herself with no assistance from a helper. 5-Set-up or Clean-up Assistance-helper sets up or cleans up; patient completes activity. [place] assists only prior to or following the activity. 4-Supervision or Touching Assistance-helper provides verbal cues and/or touching/steadying and/or contact guard assistance as patient completes activity. Assistance may be provided throughout the activity or intermittently. 3-Partial/Moderate Assistance-helper does LESS THAN HALF the effort. [place] lifts, holds or supports trunk or limbs, but provides less than half the effort. 2-Substantial/Maximal Assistance-helper does MORE THAN HALF the effort. [place] lifts or holds trunk or limbs and provides more than half the effort. 2-Usitvsyuh-frextz does ALL the effort. Patient does none of the effort to complete the activity. Or, the assistance of 2 or more helpers is required for the patient to complete the activity. If activity was not attempted, code reason: 7-Patient Refused. 9-Not Applicable-not attempted and the patient did not perform the activity b efore the current illness, exacerbation or injury. 10-Not Attempted due to Environmental Limitations-(lack of equipment, weather restraints, etc.). 88-Not Attempted due to Medical Conditions or Safety Concerns. Sit to Lying (QC): 1 Sit to Stand (QC): 1 Chair/Yfl-gh-Liebs Xfer(QC): 1 Weight Bearing Right Lower Extremity: Right Weight Bearing/Tolerated Gait Training Does the Patient Walk?: No and Walking Goal IS indicated Exercises Supine Ex: Ankle pumps, Heel Slides, Straight leg raise, Hip abd/add Supine Reps: 12 (PROM) Assessment Patient very fatigued and confused. Patient returned to bed with dependent assist with abduction pillow in place. PT Retread Mold Operator Goals Retread Mold Operator Goals PT Retread Mold Operator Goals Time Frame: Sep 05, 2022 Roll Left & Right (QC): 6 Sit to Lying (QC): 4 Lying-Sitting on Side/Bed(QC): 4 Sit to Stand (QC): 4 Chair/Bum-tb-Unwob Xfer(QC): 4 Walk 10 feet (QC): 4 Walk 50ft with 2 Turns (QC): 4 Walk 150 ft (QC): 4 PT Plan Treatment/Plan Treatment Plan: Continue Plan of Care Treatment Plan: Bed Mobility, Education, Functional Activity Demetris, Functional Strength, Gait, Safety, Therapeutic Exercise, Transfers Treatment Duration: Sep 05, 2022 Frequency: 11 times per week Estimated Hrs Per Day: .25 hour per day Patient and/or Family Agrees t: Yes Time/GCodes Time In: 1300 Time Out: 1315 Total Billed Treatment Time: 15 Total Billed Treatment 1 visit FA 15 min ANTALYA ARCOS PT Aug 30, 2022 14:17
[2022-08-30] MEDS: ENOXAPARIN 40 MG/0.4 ML (LOVENOX) SYR SC SCH (19:11)
[2022-08-30] MEDS: LUMIGAN 0.01% OPTH SOLN OU SCH (19:12)
[2022-08-31 05:48] LABS: BASOPHILS % (AUTO) 0 % (0-10); EOSINOPHILS # (AUTO) 0.2 10^3/uL (0.0-0.3); EOSINOPHILS % (AUTO) 3 % (0-10); HEMATOCRIT 24 % (35-52); HEMOGLOBIN 8.1 g/dL (11.5-16.0); LYMPHOCYTES # (AUTO) 1.2 10^3/uL (1.0-4.0); LYMPHOCYTES % (AUTO) 18 % (12-44); MEAN CORPUSCULAR HEMOGLOBIN 34 pg (25-34); MEAN CORPUSCULAR HGB CONC 34 g/dL (32-36); MEAN CORPUSCULAR VOLUME 100 fL (80-99); MONOCYTES # (AUTO) 0.5 10^3/uL (0.0-1.0); MONOCYTES % (AUTO) 8 % (0-12); NEUTROPHILS # (AUTO) 4.7 10^3/uL (1.8-7.8); NEUTROPHILS % (AUTO) 70 % (42-75); PLATELET COUNT 127 10^3/uL (130-400); WHITE BLOOD COUNT 6.7 10^3/uL (4.3-11.0)
[2022-08-31 06:01] LABS: ALBUMIN 2.8 GM/DL (3.2-4.5); BILIRUBIN,TOTAL 0.8 MG/DL (0.1-1.0); CALCIUM 7.9 MG/DL (8.5-10.1); CREATININE SERUM 0.57 MG/DL (0.60-1.30); POTASSIUM 3.4 MMOL/L (3.6-5.0); TOTAL PROTEIN 4.8 GM/DL (6.4-8.2)
--- NOTE | 2022-08-31 08:22 | Progress Note - Cardiology ---
Cardiology SOAP Progress Note Objective: I&O/Vital Signs 08/31/22 08/31/22 08/31/22 07:45 08:00 08:41 Temp 37.0 Pulse 76 Resp 18 B/P (MAP) 164/84 (110) Pulse Ox 94 98 O2 Delivery Room Air Room Air Room Air 08/31/22 00:00 Intake Total 1580 ml Output Total 825 ml Balance 755 ml Weight (Pounds): 151 Weight (Calculated Kilograms): 68.130439 Constitutional: AAO x 3, well-developed, well-nourished Respiratory: No accessory muscle use, No respiratory distress; chest expansion is symmetric, chest is bilaterally symmetric, lungs clear to auscultation Cardiovascular: regular rate-rhythm; No JVD; S1 and S2 Gastrointestional: No tender; soft, round, audible bowel sounds Extremities: other (mild R LE swelling) Neurologic/Psychiatric: grossly intact (able to move all other extremities; AAOx3) Skin: No rash on exposed areas, No ulcerations on exposed areas Results/Procedures: Labs Laboratory Tests 08/31/22 05:30: 08/31/22 05:38: White Blood Count 6.7, Red Blood Count 2.41L, Hemoglobin 8.1L, Hematocrit 24L, Mean Corpuscular Volume 100H, Mean Corpuscular Hemoglobin 34, Mean Corpuscular Hemoglobin Concent 34, Red Cell Distribution Width 12.5, Platelet Count 127L, Mean Platelet Volume 9.0, Immature Granulocyte % (Auto) 1, Neutrophils (%) (Auto) 70, Lymphocytes (%) (Auto) 18, Monocytes (%) (Auto) 8, Eosinophils (%) (Auto) 3, Basophils (%) (Auto) 0, Neutrophils # (Auto) 4.7, Lymphocytes # (Auto) 1.2, Monocytes # (Auto) 0.5, Eosinophils # (Auto) 0.2, Basophils # (Auto) 0.0, Immature Granulocyte # (Auto) 0.1, Percent Immature Platelet Fraction 1.4, Sodium Level 134L, Potassium Level 3.4L, Chloride Level 106, Carbon Dioxide Level 19L, Anion Gap 9, Blood Urea Nitrogen 10, Creatinine 0.57L, Estimat Glomerular Filtration Rate 90, BUN/Creatinine Ratio 18, Glucose Level 110H, Calcium Level 7.9L, Corrected Calcium 8.9, Total Bilirubin 0.8, Aspartate Amino Transf (AST/SGOT) 26, Alanine Aminotransferase (ALT/SGPT) 21, Alkaline Phosphatase 49, Total Protein 4.8L, Albumin 2.8L Microbiology 08/28/22 MRSA Screen - Final, Complete MRSA not isolated 08/27/22 Urine Culture - Final, Complete Klebsiella pneumoniae A/P: Assessment: Right hip fracture post non-syncopal fall - s/p surgical repair on 08/28/22 Post op anemia - management per medical/surgical services ?UTI - management per medical services Coronary artery disease - with a history of anterior wall myocardial infarction in June 2013, treated with primary angioplasty and stenting of the mid left anterior descending artery with Promus Element 2.25 x 32 mm stent. - - - Subsequently, on 11/04/13, following presentation with NSTEMI she underwent stenting of LCXOM with Mini Vision 2x28mm stent. 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 No pseudoaneurysm on u/s of 11/11/13 - MPI of 05/17/20 showed no evidence for myocardial ischemia or infarction. 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 - Echocardiogram of February 18, 2019 showed concentric LVH. LVEF 55-60%. LA is mildly dilated. PASP approx 25 mmHg Hyperlipidemia - statin tx - followed by Dr. Blake (PCP) Chronic joint pain - managed by PCP Carotid dz - Mild bilat carotid disease per u/s of June 2020 Plan: Continue current medication regimen Post-op anemia - management per medical/surgical services (advise Hgb be kept above 8.0) We recommend continuation of DVT prophylaxis Monitor lab closely SONNY KNIGHT Aug 31, 2022 08:22
[2022-08-31 08:41] VITALS: BP 164/84
[2022-08-31] MEDS: PANTOPRAZOLE 20 MG TABLET (PROTONIX) PO SCH (09:16)
[2022-08-31] MEDS: SENNOSIDES 8.6 MG (SENOKOT) TAB PO SCH ×2 (09:16→21:55)
[2022-08-31] MEDS: TIMOLOL MALEATE 0.5% 5 ML (TIMOPTIC) BTL OP SCH (09:16)
[2022-08-31] MEDS: [UNRECOGNIZED DRUG - REMARK] OS SCH (09:16)
[2022-08-31] MEDS: CLOPIDOGREL 75 MG (PLAVIX) TABLET PO SCH (09:17)
[2022-08-31] MEDS: DOCUSATE SODIUM 100 MG (COLACE) CAP PO SCH ×2 (09:17→21:55)
[2022-08-31] MEDS: ASPIRIN 81 MG CHEW (CHILDREN'S ASA) PO SCH (09:17)
[2022-08-31] MEDS: lisINopril 5 MG (PRINIVIL) TABLET PO SCH (09:17)
--- NOTE | 2022-08-31 09:40 | Physical Therapy Daily Note ---
PT Daily Note-Current Subjective Patient in recliner pre tx, agrees to PT, has 4/10 pain in right hip. Pain Section J - Health Conditions 1. Rarely or not at all 2. Occasionally 3. Frequently 4. Almost constantly 8. Unable to answer Pain Effect on Sleep: 3 Pain Interference with Therapy: 3 Pain Interference w/Day-to-Day: 3 Appearance Patient in recliner post tx with nurse call, phone, tray, all needs met, in room. Mental Status Patient Orientation: Person, Confused Attachments: IV Transfers SCALE: Activities may be completed with or without assistive devices. 7-Ofvgwpykks-ftqjhwv completes the activity by him/herself with no assistance from a helper. 5-Set-up or Clean-up Assistance-helper sets up or cleans up; patient completes activity. [place] assists only prior to or following the activity. 4-Supervision or Touching Assistance-helper provides verbal cues and/or touching/steadying and/or contact guard assistance as patient completes activity. Assistance may be provided throughout the activity or intermittently. 3-Partial/Moderate Assistance-helper does LESS THAN HALF the effort. [place] lifts, holds or supports trunk or limbs, but provides less than half the effort. 2-Substantial/Maximal Assistance-helper does MORE THAN HALF the effort. [place] lifts or holds trunk or limbs and provides more than half the effort. 3-Gxwlmfivj-wahyti does ALL the effort. Patient does none of the effort to c omplete the activity. Or, the assistance of 2 or more helpers is required for the patient to complete the activity. If activity was not attempted, code reason: 7-Patient Refused. 9-Not Applicable-not attempted and the patient did not perform the activity before the current illness, exacerbation or injury. 10-Not Attempted due to Environmental Limitations-(lack of equipment, weather restraints, etc.). 88-Not Attempted due to Medical Conditions or Safety Concerns. Sit to Stand (QC): 2 Chair/Cvz-vo-Iwdij Xfer(QC): 3 max assist to stand, 2 attempts Weight Bearing Right Lower Extremity: Right Weight Bearing/Tolerated Gait Training Distance: 15' Walk 10 feet (QC): 3 Gait Assistive Device: FWW followed with her recliner, slow antalgic gait, needs assist pushing the walker, doesn't seem to understand how to use it even with cues for direction Exercises Seated Therapy Exercises: Ankle pumps, Long arc quads Seated Reps: 20 Treatments ambulation, LE ROM Assessment Current Status: Fair Progress poor functional mobility overall but patient was able to ambulate a little bit today PT Longterm Goals Longterm Goals PT Senior Sustainability Advisor Goals Time Frame: Sep 05, 2022 Roll Left & Right (QC): 6 Sit to Lying (QC): 4 Lying-Sitting on Side/Bed(QC): 4 Sit to Stand (QC): 4 Chair/Pyv-mp-Cwlnu Xfer(QC): 4 Walk 10 feet (QC): 4 Walk 50ft with 2 Turns (QC): 4 Walk 150 ft (QC): 4 PT Plan Problem List Problem List: Activity Tolerance, Functional Strength, Safety, Balance, Gait, Transfer, Bed Mobility, ROM Treatment/Plan Treatment Plan: Continue Plan of Care Treatment Plan: Bed Mobility, Education, Functional Activity Demetris, Functional Strength, Gait, Safety, Therapeutic Exercise, Transfers Treatment Duration: Sep 05, 2022 Frequency: 11 times per week Estimated Hrs Per Day: .25 hour per day Patient and/or Family Agrees t: Yes Safety Risks/Education Patient Education: Gait Training, Transfer Techniques, Correct Positioning, Safety Issues Teaching Recipient: Patient Teaching Methods: Demonstration, Discussion Response to Teaching: Reinforcement Needed Time/GCodes Time In: 902 Time Out: 912 Total Billed Treatment Time: 10 Total Billed Treatment 1 visit FA VALENTINE MONCADA PT Aug 31, 2022 09:40
--- NOTE | 2022-08-31 10:15 | Occupational Ther Daily Note ---
OT Current Status-Daily Note Subjective Pt sitting in recliner with present. She reports needing to use the bathroom. Appearance Pt left sitting in recliner with all needs within reach. Mental Status/Objective Patient Orientation: Person, Confused Attachments: IV ADL-Treatment Therapy Code Descriptions/Definitions Functional [place] Measure: 0=Not Assessed/NA 4=Minimal Assistance 1=Total Assistance 5=Supervision or Setup 2=Maximal Assistance 6=Modified [place] 3=Moderate Assistance 7=Complete IndependenceSCALE: Activities may be completed with or without assistive devices. 5-Xlymsjqjgg-auovwar completes the activity by him/herself with no assistance from a helper. 5-Set-up or Clean-up Assistance-helper sets up or cleans up; patient completes activity. [place] assists only prior to or following the activity. 4-Supervision or Touching Assistance-helper provides verbal cues and/or touching/steadying and/or contact guard assistance as patient completes activity. Assistance may be provided throughout the activity or intermittently. 3-Partial/Moderate Assistance-helper does LESS THAN HALF the effort. [place] lifts, holds or supports trunk or limbs, but provides less than half the effort. 2-Substantial/Maximal Assistance-helper does MORE THAN HALF the effort. [place] lifts or holds trunk or limbs and provides more than half the effort. 7-Qszkmyyqc-uissmi does ALL the effort. Patient does none of the effort to complete the activity. Or, the assistance of 2 or more helpers is required for the patient to complete the activity. If activity was not attempted, code reason: 7-Patient Refused. 9-Not Applicable-not attempted and the patient did not perform the activity before the current illness, exacerbation or injury. 10-Not Attempted due to Environmental Limitations-(lack of equipment, weather restraints, etc.). 88-Not Attempted due to Medical Conditions or Safety Concerns. Toileting Hygiene (QC): 3 (Cues for initiation and technique) Toilet Transfer (QC): 4 Pt initially mod a for stand pivot transfer to commode, improves to SBA on return to chair. Good standing balance exhibited and able to perform clothing management by alternating one hand on walker with CGA for safety. Pt did require verbal cues for initiation and technique for all steps of toileting including elysia care and clothing management. Min cues for adherence to hip precautions while sitting and transferring (no internal rotation) Education OT Patient Education: Correct positioning, Modified ADL techniques, Progress toward Goal/Update tx plan, Purpose of tx/functional activities, Reviewed precautions, Rehab process, Safety issues, Transfer techniques Teaching Recipient: Patient Teaching Methods: Demonstration, Discussion Response to Teaching: Verbalize Understanding, Return Demonstration, Reinforcement Needed OT Grocery Worker Goals Intermediate Goals Time Frame: Sep 14, 2022 Oral Hygiene (QC): 5 Toileting Hygiene (QC): 4 Shower/Bathe Self (QC): 3 Upper Body Dressing (QC): 5 Lower Body Dressing (QC): 4 On/Off Footwear (QC): 4 Additional Goals: 1-Demonstrate ADL Tasks, 2-Verbalize Understanding, 3-ImproveStrength/Demetris 1=Demonstrate adherence to instructed precautions during ADL tasks. 2=Patient will verbalize/demonstrate understanding of assistive devices/modifications for ADL. 3=Patient will improve strength/tolerance for activity to enable patient to perform ADL's. OT Education/Plan Problem List/Assessment Assessment: Decreased Activ Tolerance, Decreased Safety Aware, Decreased UE Strength, Impaired Cognition, Impaired Coordination, Impaired Funct Balance, Impaired I ADL's, Impaired Self-Care Skills Discharge Recommendations Plan/Recommendations: Continue POC Treatment Plan/Plan of Care Treatment,Training & Education: Yes Patient would benefit from OT for education, treatment and training to promote independence in ADL's, mobility, safety and/or upper extremity function for ADL' s. Plan of Care: ADL Retraining, Caregiver Training, Cognitive Retraining, Functional Mobility, Group Exercise/Act as Ind, UE Funct Exercise/Act Treatment Duration: Sep 14, 2022 Frequency: 3 times per week (3-5 x/week) Estimated Hrs Per Day: .25 hour per day Agreement: Yes Rehab Potential: Fair Time/GCodes Start Time: 09:32 Stop Time: 09:49 Total Time Billed (hr/min): 17 Billed Treatment Time 1 visit ADL x1 Pilar Britton OT Aug 31, 2022 10:15
[2022-08-31] MEDS ORDERED: CYANOCOBALAMIN INJ 1000 MCG/ML IM NR (11:30)
[2022-08-31] MEDS ORDERED: KCL 10 MEQ TAB (MICRO K) PO NR (11:30)
[2022-08-31] MEDS ORDERED: IRON SUCROSE 200 MG/10 ML (VENOFER) VIAL IV NR (11:30)
[2022-08-31] MEDS ORDERED: BISACODYL 10 MG SUPP (DULCOLAX) PR NR (11:30)
--- NOTE | 2022-08-31 12:59 | Progress Note - Cardiology ---
Cardiology SOAP Progress Note Subjective: No cp or palp or syncope or shortness of breath No n/v/d No focal weakness Objective: I&O/Vital Signs 08/31/22 08/31/22 08/31/22 07:45 08:00 08:41 Temp 37.0 Pulse 76 Resp 18 B/P (MAP) 164/84 (110) Pulse Ox 94 98 O2 Delivery Room Air Room Air Room Air 08/31/22 00:00 Intake Total 1580 ml Output Total 825 ml Balance 755 ml Weight (Pounds): 151 Weight (Calculated Kilograms): 68.461147 Constitutional: AAO x 3, well-developed, well-nourished Respiratory: No accessory muscle use, No respiratory distress; chest expansion is symmetric, chest is bilaterally symmetric, lungs clear to auscultation Cardiovascular: regular rate-rhythm; No JVD; S1 and S2 Gastrointestional: No tender; soft, round, audible bowel sounds Extremities: other (mild R LE swelling) Neurologic/Psychiatric: grossly intact (able to move all other extremities; AAOx3) Skin: No rash on exposed areas, No ulcerations on exposed areas Results/Procedures: Labs Laboratory Tests 08/31/22 05:30: 08/31/22 05:38: White Blood Count 6.7, Red Blood Count 2.41L, Hemoglobin 8.1L, Hematocrit 24L, Mean Corpuscular Volume 100H, Mean Corpuscular Hemoglobin 34, Mean Corpuscular Hemoglobin Concent 34, Red Cell Distribution Width 12.5, Platelet Count 127L, Mean Platelet Volume 9.0, Immature Granulocyte % (Auto) 1, Neutrophils (%) (Auto) 70, Lymphocytes (%) (Auto) 18, Monocytes (%) (Auto) 8, Eosinophils (%) (Auto) 3, Basophils (%) (Auto) 0, Neutrophils # (Auto) 4.7, Lymphocytes # (Auto) 1.2, Monocytes # (Auto) 0.5, Eosinophils # (Auto) 0.2, Basophils # (Auto) 0.0, Immature Granulocyte # (Auto) 0.1, Percent Immature Platelet Fraction 1.4, Sodium Level 134L, Potassium Level 3.4L, Chloride Level 106, Carbon Dioxide Level 19L, Anion Gap 9, Blood Urea Nitrogen 10, Creatinine 0.57L, Estimat Glomerular Filtration Rate 90, BUN/Creatinine Ratio 18, Glucose Level 110H, Calcium Level 7.9L, Corrected Calcium 8.9, Total Bilirubin 0.8, Aspartate Amino Transf (AST/SGOT) 26, Alanine Aminotransferase (ALT/SGPT) 21, Alkaline Phosphatase 49, Total Protein 4.8L, Albumin 2.8L Microbiology 08/28/22 MRSA Screen - Final, Complete MRSA not isolated 08/27/22 Urine Culture - Final, Complete Klebsiella pneumoniae Laboratory Tests 08/30/22 05:00 08/31/22 05:38 A/P: Assessment: Right hip fracture post non-syncopal fall - s/p surgical repair on 08/28/22 Post op anemia - management per medical/surgical services ?UTI - management per medical services Coronary artery disease - with a history of anterior wall myocardial infarction in June 2013, treated with primary angioplasty and stenting of the mid left anterior descending artery with Promus Element 2.25 x 32 mm stent. - - - Subsequently, on 11/04/13, following presentation with NSTEMI she underwent stenting of LCXOM with Mini Vision 2x28mm stent. 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 No pseudoaneurysm on u/s of 11/11/13 - MPI of 05/17/20 showed no evidence for myocardial ischemia or infarction. 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 - Echocardiogram of February 18, 2019 showed concentric LVH. LVEF 55-60%. LA is mildly dilated. PASP approx 25 mmHg Hyperlipidemia - statin tx - followed by Dr. Blake (PCP) Chronic joint pain - managed by PCP Carotid dz - Mild bilat carotid disease per u/s of June 2020 Plan: Continue current medication regimen Post-op anemia - management per medical/surgical services (advise Hgb be kept above 8.0) We recommend continuation of DVT prophylaxis Monitor labs Cardiac status remains stable. We will sign off. Please recall Cardiology if needed LEN CAMPOS MD FACP [facility] Aug 31, 2022 12:59
--- NOTE | 2022-08-31 13:25 | Progress Note ---
OMAR CARTAGENA 08/31/22 1325: Subjective Date Seen by a Provider: Aug 31, 2022 Time Seen by a Provider: 13:17 Subjective/Events-last exam Patient is in good spirits Patient says pain is well controlled Patient was able to ambulate 15 feet Urinary Catheter is out Incision healing well Still no bowel movement since surgery Patient is alert and orientated X3 today Labs and Vitals reviewed Objective Exam Last Set of Vital Signs Vital Signs Date Time Temp Pulse Resp B/P (MAP) Pulse Ox O2 Delivery O2 Flow Rate FiO2 08/31/22 08:41 37.0 76 18 164/84 (110) 98 Room Air 08/28/22 16:25 2.00 08/28/22 09:49 97 Capillary Refill : Less Than 3 SecondsLess Than 3 Seconds I&O Intake and Output 08/31/22 00:00 Intake Total 1780 ml Output Total 1125 ml Balance 655 ml Intake Oral 780 ml IV Total 1000 ml Output Urine Total 1125 ml # Voids 1 General: Alert, Oriented X3, Cooperative HEENT: Atraumatic, EOMI Neck: Supple, No JVD Lungs: Clear to Auscultation Heart: Regular Rate, Normal S1, Normal S2 Abdomen: Normal Bowel Sounds, Soft Extremities: No Clubbing, No Cyanosis Skin: No Rashes, No Breakdown Neuro: Normal Speech, Strength at 5/5 X4 Ext, Sensation Intact Psych/Mental Status: Mental Status NL Results Lab Laboratory Tests 08/31/22 05:30: 08/31/22 05:38: White Blood Count 6.7, Red Blood Count 2.41L, Hemoglobin 8.1L, Hematocrit 24L, Mean Corpuscular Volume 100H, Mean Corpuscular Hemoglobin 34, Mean Corpuscular Hemoglobin Concent 34, Red Cell Distribution Width 12.5, Platelet Count 127L, Mean Platelet Volume 9.0, Immature Granulocyte % (Auto) 1, Neutrophils (%) (Auto) 70, Lymphocytes (%) (Auto) 18, Monocytes (%) (Auto) 8, Eosinophils (%) (Auto) 3, Basophils (%) (Auto) 0, Neutrophils # (Auto) 4.7, Lymphocytes # (Auto) 1.2, Monocytes # (Auto) 0.5, Eosinophils # (Auto) 0.2, Basophils # (Auto) 0.0, Immature Granulocyte # (Auto) 0.1, Percent Immature Platelet Fraction 1.4, Sodium Level 134L, Potassium Level 3.4L, Chloride Level 106, Carbon Dioxide Level 19L, Anion Gap 9, Blood Urea Nitrogen 10, Creatinine 0.57L, Estimat Glomerular Filtration Rate 90, BUN/Creatinine Ratio 18, Glucose Level 110H, Calcium Level 7.9L, Corrected Calcium 8.9, Total Bilirubin 0.8, Aspartate Amino Transf (AST/SGOT) 26, Alanine Aminotransferase (ALT/SGPT) 21, Alkaline Phosphatase 49, Total Protein 4.8L, Albumin 2.8L Microbiology 08/28/22 MRSA Screen - Final, Complete MRSA not isolated 08/27/22 Urine Culture - Final, Complete Klebsiella pneumoniae Assessment/Plan Assessment/Plan Assess & Plan/Chief Complaint S/P Right hip hemiarthoplasty- Preformed 08-28-2022- No current acute complications/ healing well POD#3 Orthopedics monitoring Monitor pain-Currently well controlled with morphine and oxycodone Continue PT and OT Post operative X-ray shows no evidence of complication UTI-culture growing Klebsiella Ceftriaxone administered Hyponatremia Monitor Hypokalemia Monitor and Replace Constipation-possibly opioid induced Administer suppository Soap Suds enema HTN Continue home meds (lisinopril and metoprolol) Post Operative Anemia- Currently 8.1 Continue to monitor Administer IV iron injection Check B12 and [employer] Operative Thrombocytopenia-127 Continue to monitor CAD MPI of 05/17/20 showed no evidence for myocardial ischemia or infarction. LVEF 76% Continue home meds Restarted on aspirin 81 mg by cardiology Glaucoma Restart Timolol and Latanprost Dementia GERD Administer Omeprazole DVT prophylaxsis- Continue Lovenox and Plavix Hyperlipidemia Continue with home atovastatin History of fractured right femoral neck/Fall from standing height on 08-27-2022 History of comminuted subcaptial fracture of right femur/Fall from standing height on 08-27-2022 History of [place]- In [id number] Cardiology consulted Clinical Quality Measures Admission Status Admission Dx Fracture of right femoral neck/Fall from standing height Pain management -currently well controlled on morphine Orthopedics consulted-surgery tentatively scheduled for 08-29 Cardiology consulted for surgical clearance Comminuted subcaptial fracture of right femur/Fall from standing height Pain management -currently well controlled on morphine Orthopedics consulted UTI-culture showing possible growth of Klebsiella/Enterobactor Ceftriaxone administered HTN Continue home meds (lisinopril and metoprolol) CAD MPI of 05/17/20 showed no evidence for myocardial ischemia or infarction. LVEF 76% Continue home meds Hyponatremia- Monitior and replace Hyperlipidemia Continue with home simvastatin History of [place]- In [id number] Cardiology consulted DVT/VTE Risk/Contraindication: Contraindications-Pharm: Other *list below* Other: surgery CORTNEY RUIZ DO 09/01/22 0606: Subjective Subjective/Events-last exam Dr Blake updated me on support for NHP No major issues per patient of nurse Review of Systems General: Fatigue, Malaise Musculoskeletal: leg pain Neurological: Confusion Objective Exam General: Alert, Cooperative, No Acute Distress Lungs: Clear to Auscultation Heart: Regular Rate Assessment/Plan Assessment/Plan Assess & Plan/Chief Complaint Monitor pain Supervisory-Addendum Brief Verification & Attestation Participated in pt care: history, MDM, physical Personally performed: exam, history, MDM, supervision of care Care discussed with: Medical Student Procedures: n/a Results interpretation: Verified all documentation Verification and Attestation of Medical Student E/M Service A medical student performed and documented this service in my presence. I reviewed and verified all information documented by the medical student and made modifications to such information, when appropriate. I personally performed the physical exam and medical decision making. Cortney Ruiz, Sep 01, 2022,06:05 OMAR CARTAGENA Aug 31, 2022 13:25 CORTNEY RUIZ DO Sep 01, 2022 06:06
--- NOTE | 2022-08-31 13:36 | Physical Therapy Daily Note ---
PT Daily Note-Current Subjective Patient in bed pre tx, agrees to PT, has unrated right side hip pain. states that nursing just got her back to bed and gave her a suppository. Patient is reluctant to participate in PT, with encouragement she agrees to exercises in bed. Pain Section J - Health Conditions 1. Rarely or not at all 2. Occasionally 3. Frequently 4. Almost constantly 8. Unable to answer Pain Effect on Sleep: 3 Pain Interference with Therapy: 3 Pain Interference w/Day-to-Day: 3 Appearance Patient in bed post tx with nurse call, phone, tray, all needs met, in room. Mental Status Patient Orientation: Person, Confused Transfers SCALE: Activities may be completed with or without assistive devices. 4-Elydzzxzmb-kblvmzn completes the activity by him/herself with no assistance from a helper. 5-Set-up or Clean-up Assistance-helper sets up or cleans up; patient completes activity. [place] assists only prior to or following the activity. 4-Supervision or Touching Assistance-helper provides verbal cues and/or touching/steadying and/or contact guard assistance as patient completes activity. Assistance may be provided throughout the activity or intermittently. 3-Partial/Moderate Assistance-helper does LESS THAN HALF the effort. [place] lifts, holds or supports trunk or limbs, but provides less than half the effort. 2-Substantial/Maximal Assistance-helper does MORE THAN HALF the effort. [place] lifts or holds trunk or limbs and provides more than half the effort. 0-Fosnydizm-cahqna does ALL the effort. Patient does none of the effort to complete the activity. Or, the assistance of 2 or more helpers is required for the patient to complete the activity. If activity was not attempted, code reason: 7-Patient Refused. 9-Not Applicable-not attempted and the patient did not perform the activity before the current illness, exacerbation or injury. 10-Not Attempted due to Environmental Limitations-(lack of equipment, weather restraints, etc.). 88-Not Attempted due to Medical Conditions or Safety Concerns. Weight Bearing Right Lower Extremity: Right Weight Bearing/Tolerated Exercises Supine Ex: Ankle pumps, Quad Set, Glut sets, Heel Slides, Short Arc Quads, Straight leg raise, Hip abd/add Supine Reps: 15 (RLE, AAROM on SLR and HS and SAQ) Treatments LE ROM Assessment Current Status: Fair Progress slightly better muscle activation PT Electrical And Instrumentation Mechanic Goals Custodial Goals PT Custodial Goals Time Frame: Sep 05, 2022 Roll Left & Right (QC): 6 Sit to Lying (QC): 4 Lying-Sitting on Side/Bed(QC): 4 Sit to Stand (QC): 4 Chair/Yfz-pu-Rcdtn Xfer(QC): 4 Walk 10 feet (QC): 4 Walk 50ft with 2 Turns (QC): 4 Walk 150 ft (QC): 4 PT Plan Problem List Problem List: Activity Tolerance, Functional Strength, Safety, Balance, Gait, Transfer, Bed Mobility, ROM Treatment/Plan Treatment Plan: Continue Plan of Care Treatment Plan: Bed Mobility, Education, Functional Activity Demetris, Functional Strength, Gait, Safety, Therapeutic Exercise, Transfers Treatment Duration: Sep 05, 2022 Frequency: 11 times per week Estimated Hrs Per Day: .25 hour per day Patient and/or Family Agrees t: Yes Safety Risks/Education Patient Education: Correct Positioning, Safety Issues Teaching Recipient: Patient Teaching Methods: Demonstration, Discussion Response to Teaching: Reinforcement Needed Time/GCodes Time In: 1312 Time Out: 1320 Total Billed Treatment Time: 8 Total Billed Treatment 1 visit EX VALENTINE MONTOYA PT Aug 31, 2022 13:36
[2022-08-31 15:19] VITALS: BP 164/84
[2022-08-31 16:03] VITALS: BP 156/76
[2022-08-31] MEDS: ACETAMINOPHEN 325 MG TABLET PO PRN (16:58)
[2022-08-31] MEDS: KCL 10 MEQ TAB (MICRO K) PO SCH (18:21)
[2022-08-31] MEDS: ENOXAPARIN 40 MG/0.4 ML (LOVENOX) SYR SC SCH (19:42)
[2022-08-31] MEDS: LUMIGAN 0.01% OPTH SOLN OU SCH (19:48)
[2022-08-31 20:09] VITALS: BP 140/73
[2022-08-31 23:48] VITALS: BP 159/80
[2022-09-01 05:29] LABS: BASOPHILS % (AUTO) 1 % (0-10); EOSINOPHILS # (AUTO) 0.3 10^3/uL (0.0-0.3); EOSINOPHILS % (AUTO) 5 % (0-10); HEMATOCRIT 24 % (35-52); HEMOGLOBIN 8.1 g/dL (11.5-16.0); LYMPHOCYTES # (AUTO) 1.6 10^3/uL (1.0-4.0); LYMPHOCYTES % (AUTO) 26 % (12-44); MEAN CORPUSCULAR HEMOGLOBIN 34 pg (25-34); MEAN CORPUSCULAR HGB CONC 34 g/dL (32-36); MEAN CORPUSCULAR VOLUME 100 fL (80-99); MEAN PLATELET VOLUME 9.1 fL (9.0-12.2); MONOCYTES # (AUTO) 0.5 10^3/uL (0.0-1.0); MONOCYTES % (AUTO) 8 % (0-12); NEUTROPHILS # (AUTO) 3.5 10^3/uL (1.8-7.8); NEUTROPHILS % (AUTO) 59 % (42-75); PLATELET COUNT 126 10^3/uL (130-400); WHITE BLOOD COUNT 5.9 10^3/uL (4.3-11.0)
[2022-09-01 05:51] LABS: ALBUMIN 2.8 GM/DL (3.2-4.5); BILIRUBIN,TOTAL 0.7 MG/DL (0.1-1.0); CALCIUM 8.3 MG/DL (8.5-10.1); CREATININE SERUM 0.58 MG/DL (0.60-1.30); POTASSIUM 3.6 MMOL/L (3.6-5.0); TOTAL PROTEIN 4.9 GM/DL (6.4-8.2)
--- NOTE | 2022-09-01 06:25 | Progress Note ---
Subjective Date Seen by a Provider: Sep 01, 2022 Time Seen by a Provider: 10:00 Subjective/Events-last exam No major issues Taking a shower Waiting on [facility] Review of Systems Musculoskeletal: leg pain Neurological: Confusion Objective Exam Last Set of Vital Signs Vital Signs Date Time Temp Pulse Resp B/P (MAP) Pulse Ox O2 Delivery O2 Flow Rate FiO2 08/31/22 23:48 36.6 72 16 159/80 (106) 96 Room Air 08/28/22 16:25 2.00 08/28/22 09:49 97 Capillary Refill : Less Than 3 SecondsLess Than 3 Seconds I&O Intake and Output 09/01/22 00:00 Intake Total 690 ml Output Total 1100 ml Balance -410 ml Intake Oral 690 ml IV Total 0 ml Output Urine Total 1100 ml # Voids 4 # Bowel Movements 2 General: Alert, Oriented X3, Cooperative, No Acute Distress Lungs: Clear to Auscultation, Normal Air Movement Heart: Regular Rate, Normal S1, Normal S2, No Murmurs Psych/Mental Status: Mental Status NL (deficit noted), Mood NL Results Lab Laboratory Tests 09/01/22 05:09: White Blood Count 5.9, Red Blood Count 2.41L, Hemoglobin 8.1L, Hematocrit 24L, Mean Corpuscular Volume 100H, Mean Corpuscular Hemoglobin 34, Mean Corpuscular Hemoglobin Concent 34, Red Cell Distribution Width 12.5, Platelet Count 126L, Mean Platelet Volume 9.1, Immature Granulocyte % (Auto) 1, Neutrophils (%) (Auto) 59, Lymphocytes (%) (Auto) 26, Monocytes (%) (Auto) 8, Eosinophils (%) (Auto) 5, Basophils (%) (Auto) 1, Neutrophils # (Auto) 3.5, Lymphocytes # (Auto) 1.6, Monocytes # (Auto) 0.5, Eosinophils # (Auto) 0.3, Basophils # (Auto) 0.0, Immature Granulocyte # (Auto) 0.1, Sodium Level 136, Potassium Level 3.6, Chloride Level 106, Carbon Dioxide Level 23, Anion Gap 7, Blood Urea Nitrogen 9, Creatinine 0.58L, Estimat Glomerular Filtration Rate 90, BUN/Creatinine Ratio 16, Glucose Level 92, Calcium Level 8.3L, Corrected Calcium 9.3, Total Bilirubin 0.7, Aspartate Amino Transf (AST/SGOT) 31, Alanine Aminotransferase (ALT/SGPT) 28, Alkaline Phosphatase 52, Total Protein 4.9L, Albumin 2.8L Microbiology 08/28/22 MRSA Screen - Final, Complete MRSA not isolated 08/27/22 Urine Culture - Final, Complete Klebsiella pneumoniae Assessment/Plan Assessment/Plan Assess & Plan/Chief Complaint Assessment: Hip fracture Confusion w/h/o dementia on exam historically Post op acute blood loss anemia Plan: Monitor hgb Clinical Quality Measures Admission Status Admission Dx Assessment: Right hip fracture CAD HTN HLP Acute UTI Plan: Proceed with repair DVT/VTE Risk/Contraindication: Contraindications-Pharm: Other *list below* Other: surgery SANJAY RUIZ DO Sep 01, 2022 06:25
[2022-09-01 07:35] VITALS: BP 134/75
[2022-09-01] MEDS: DOCUSATE SODIUM 100 MG (COLACE) CAP PO SCH ×2 (09:35→20:27)
[2022-09-01] MEDS: CLOPIDOGREL 75 MG (PLAVIX) TABLET PO SCH (09:35)
[2022-09-01] MEDS: ASPIRIN 81 MG CHEW (CHILDREN'S ASA) PO SCH (09:35)
[2022-09-01] MEDS: PANTOPRAZOLE 20 MG TABLET (PROTONIX) PO SCH (09:35)
[2022-09-01] MEDS: KCL 10 MEQ TAB (MICRO K) PO SCH ×2 (09:35→17:34)
[2022-09-01] MEDS: SENNOSIDES 8.6 MG (SENOKOT) TAB PO SCH ×2 (09:36→20:27)
[2022-09-01] MEDS: lisINopril 5 MG (PRINIVIL) TABLET PO SCH (09:36)
[2022-09-01] MEDS: TIMOLOL MALEATE 0.5% 5 ML (TIMOPTIC) BTL OP SCH (09:38)
[2022-09-01] MEDS: [UNRECOGNIZED DRUG - REMARK] OS SCH (09:39)
--- NOTE | 2022-09-01 10:59 | Cardiology Progress Note ---
Subjective Date Seen by Provider: Sep 01, 2022 Time Seen by Provider: 10:55 Subjective/Events-last exam Patient was seen at bedside, denied any chest pain. No palpitation. Review of Systems General: No Chills, No Night Sweats; Fatigue, Malaise; No Appetite, No Other HEENT: No Head Aches, No Visual Changes, No Eye Pain, No Ear Pain, No Dysphasia, No Sinus Congestion, No Post Nasal Drip, No Sore Throat, No Other Pulmonary: Dyspnea; No Cough, No Pleuritic Chest Pain, No Other Cardiovascular: No: Chest Pain, Palpitations, Orthopnea, Paroxysmal Noc. Dyspnea, Edema, Lt Headedness, Other Objective-Cardiology Exam Last Set of Vital Signs Vital Signs 08/28/22 08/28/22 09/01/22 09/01/22 09:49 16:25 07:35 08:00 Temp 37.9 Pulse 76 Resp 16 B/P (MAP) 134/75 (94) Pulse Ox 97 O2 Delivery Room Air O2 Flow Rate 2.00 FiO2 97 I&O Intake and Output 09/01/22 00:00 Intake Total 690 ml Output Total 1100 ml Balance -410 ml Intake Oral 690 ml IV Total 0 ml Output Urine Total 1100 ml # Voids 4 # Bowel Movements 2 General: Alert, Cooperative, No Acute Distress HEENT: Atraumatic, EOMI Neck: Supple, No JVD Lungs: Clear to Auscultation Heart: Regular Rate, Normal S1, Normal S2 Abdomen: Normal Bowel Sounds, Soft Extremities: No Clubbing, No Cyanosis Skin: No Rashes, No Breakdown Neuro: Normal Speech, Strength at 5/5 X4 Ext, Sensation Intact Psych/Mental Status: Mental Status NL Results Lab Laboratory Tests 09/01/22 05:09 A/P-Cardiology Admission Diagnosis Hip fracture Coronary artery disease Hyperlipidemia Carotid stenosis Assessment/Plan Right hip fracture, status post nonsyncopal fall Surgical repair on August 28, 2022. Managed by medical team Postop anemia, followed and managed by primary care physician Coronary artery disease, history of myocardial infarction in June 2013, underwent stenting to the mid LAD with Promus element 2.25 x 32 mm Cardiac catheterization after non-ST [place] in November 2013 with cardiac catheter ization and stenting to the circumflex artery with mini vision 2 x 28. 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 Stress test done in May 2020 with no evidence of ischemia with ejection fraction 75% Echocardiogram in January 2019 with LVH with a EF 55 to 60%, left atrium mildly dilated, PA pressure 25 mmHg Hyperlipidemia, followed by primary care physician Chronic joint pain Carotid stenosis, followed by MICHEL Musa MD Sep 01, 2022 10:59
--- NOTE | 2022-09-01 11:13 | Physical Therapy Daily Note ---
PT Daily Note-Current Subjective Patient in bed pre tx, agrees to PT, when asked what her pain level is she seems reluctant to rate it and says "its not too bad". Pain Section J - Health Conditions 1. Rarely or not at all 2. Occasionally 3. Frequently 4. Almost constantly 8. Unable to answer Pain Effect on Sleep: 3 Pain Interference with Therapy: 3 Pain Interference w/Day-to-Day: 3 Appearance Patient on shower bench to shower with nurse aide. Mental Status Patient Orientation: Person, Confused, Situation Transfers SCALE: Activities may be completed with or without assistive devices. 5-Ycluwdjihv-pokhnlp completes the activity by him/herself with no assistance from a helper. 5-Set-up or Clean-up Assistance-helper sets up or cleans up; patient completes activity. Aurora assists only prior to or following the activity. 4-Supervision or Touching Assistance-helper provides verbal cues and/or touching/steadying and/or contact guard assistance as patient completes activity. Assistance may be provided throughout the activity or intermittently. 3-Partial/Moderate Assistance-helper does LESS THAN HALF the effort. Aurora lifts, holds or supports trunk or limbs, but provides less than half the effort. 2-Substantial/Maximal Assistance-helper does MORE THAN HALF the effort. Aurora lifts or holds trunk or limbs and provides more than half the effort. 2-Ycnpzxisw-dpgnib does ALL the effort. Patient does none of the effort to complete the activity. Or, the assistance of 2 or more helpers is required for the patient to complete the activity. If activity was not attempted, code reason: 7-Patient Refused. 9-Not Applicable-not attempted and the patient did not perform the activity b efore the current illness, exacerbation or injury. 10-Not Attempted due to Environmental Limitations-(lack of equipment, weather restraints, etc.). 88-Not Attempted due to Medical Conditions or Safety Concerns. Roll Left & Right (QC): 3 Lying to Sitting/Side of Bed(Q: 3 Sit to Stand (QC): 3 cues for positioning and safety Weight Bearing Right Lower Extremity: Right Weight Bearing/Tolerated Gait Training Distance: 30' Walk 10 feet (QC): 4 Gait Persons Needed: 1 Gait Assistive Device: FWW Patient ambulated to the doorway and then back to her restroom and onto the toilet. Mod assist for sit to stand. When done she ambulates a few more feet to the shower and sits on the shower bench. CGA for ambulation, very slow, antalgic, slightly improved step through. 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 Usp Goals PT Usp Goals Time Frame: Sep 05, 2022 Roll Left & Right (QC): 6 Sit to Lying (QC): 4 Lying-Sitting on Side/Bed(QC): 4 Sit to Stand (QC): 4 Chair/Xyk-yy-Eopcb Xfer(QC): 4 Walk 10 feet (QC): 4 Walk 50ft with 2 Turns (QC): 4 Walk 150 ft (QC): 4 PT Plan Problem List Problem List: Activity Tolerance, Functional Strength, Safety, Balance, Gait, Transfer, Bed Mobility, ROM Treatment/Plan Treatment Plan: Continue Plan of Care Treatment Plan: Bed Mobility, Education, Functional Activity Demetris, Functional Strength, Gait, Safety, Therapeutic Exercise, Transfers Treatment Duration: Sep 05, 2022 Frequency: 11 times per week Estimated Hrs Per Day: .25 hour per day Patient and/or Family Agrees t: Yes Safety Risks/Education Patient Education: Gait Training, Transfer Techniques, Reviewed Precautions, Correct Positioning, Safety Issues Teaching Recipient: Patient Teaching Methods: Demonstration, Discussion Response to Teaching: Reinforcement Needed Time/GCodes Time In: 1052 Time Out: 1106 Total Billed Treatment Time: 14 Total Billed Treatment 1 visit FA VALENTINE ALBRIGHT PT Sep 01, 2022 11:13
[2022-09-01] MEDS: morphine INJ 4 MG/ML 1 ML (VIAL/SYRINGE) IV PRN (16:33)
[2022-09-01 16:38] VITALS: BP 134/79
[2022-09-01] MEDS: ENOXAPARIN 40 MG/0.4 ML (LOVENOX) SYR SC SCH (20:25)
[2022-09-01] MEDS: LUMIGAN 0.01% OPTH SOLN OU SCH (20:26)
[2022-09-01 23:17] VITALS: BP 153/79
[2022-09-02 06:17] LABS: BASOPHILS % (AUTO) 1 % (0-10); EOSINOPHILS # (AUTO) 0.3 10^3/uL (0.0-0.3); EOSINOPHILS % (AUTO) 4 % (0-10); HEMATOCRIT 25 % (35-52); HEMOGLOBIN 8.1 g/dL (11.5-16.0); LYMPHOCYTES # (AUTO) 1.2 10^3/uL (1.0-4.0); LYMPHOCYTES % (AUTO) 19 % (12-44); MEAN CORPUSCULAR HEMOGLOBIN 33 pg (25-34); MEAN CORPUSCULAR HGB CONC 32 g/dL (32-36); MEAN CORPUSCULAR VOLUME 102 fL (80-99); MEAN PLATELET VOLUME 9.4 fL (9.0-12.2); MONOCYTES # (AUTO) 0.5 10^3/uL (0.0-1.0); MONOCYTES % (AUTO) 8 % (0-12); NEUTROPHILS # (AUTO) 4.4 10^3/uL (1.8-7.8); NEUTROPHILS % (AUTO) 68 % (42-75); PLATELET COUNT 161 10^3/uL (130-400); WHITE BLOOD COUNT 6.5 10^3/uL (4.3-11.0)
[2022-09-02 06:21] LABS: ALBUMIN 2.9 GM/DL (3.2-4.5); POTASSIUM 3.6 MMOL/L (3.6-5.0)
[2022-09-02 06:22] LABS: CALCIUM 8.4 MG/DL (8.5-10.1)
[2022-09-02 06:24] LABS: TOTAL PROTEIN 5.3 GM/DL (6.4-8.2)
[2022-09-02 06:25] LABS: BILIRUBIN,TOTAL 0.8 MG/DL (0.1-1.0)
[2022-09-02 06:27] LABS: CREATININE SERUM 0.63 MG/DL (0.60-1.30)
[2022-09-02] MEDS: morphine INJ 4 MG/ML 1 ML (VIAL/SYRINGE) IV PRN ×2 (07:25→20:43)
[2022-09-02 07:42] VITALS: BP 156/74
--- NOTE | 2022-09-02 07:57 | Progress Note ---
Subjective Date Seen by a Provider: Sep 02, 2022 Time Seen by a Provider: 10:00 Subjective/Events-last exam Doing well Pain controlled No falls Improved mentation Labs stable COVID test will be done today since going to [place] tomorrow Review of Systems General: Fatigue, Malaise Musculoskeletal: leg pain Objective Exam Last Set of Vital Signs Vital Signs Date Time Temp Pulse Resp B/P (MAP) Pulse Ox O2 Delivery O2 Flow Rate FiO2 09/02/22 07:42 36.8 76 18 156/74 (101) 98 Room Air 08/28/22 16:25 2.00 08/28/22 09:49 97 Capillary Refill : Less Than 3 SecondsLess Than 3 Seconds I&O Intake and Output 09/02/22 00:00 Intake Total 820 ml Output Total 1450 ml Balance -630 ml Intake Oral 820 ml IV Total 0 ml Output Urine Total 1450 ml # Voids 1 General: Alert, Oriented X3, Cooperative, No Acute Distress Lungs: Clear to Auscultation, Normal Air Movement Heart: Regular Rate, Normal S1, Normal S2, No Murmurs Psych/Mental Status: Mental Status NL, Mood NL Results Lab Laboratory Tests 09/02/22 05:20: White Blood Count 6.5, Red Blood Count 2.48L, Hemoglobin 8.1L, Hematocrit 25L, Mean Corpuscular Volume 102H, Mean Corpuscular Hemoglobin 33, Mean Corpuscular Hemoglobin Concent 32, Red Cell Distribution Width 12.7, Platelet Count 161, Mean Platelet Volume 9.4, Immature Granulocyte % (Auto) 1, Neutrophils (%) (Auto) 68, Lymphocytes (%) (Auto) 19, Monocytes (%) (Auto) 8, Eosinophils (%) (Auto) 4, Basophils (%) (Auto) 1, Neutrophils # (Auto) 4.4, Lymphocytes # (Auto) 1.2, Monocytes # (Auto) 0.5, Eosinophils # (Auto) 0.3, Basophils # (Auto) 0.0, Immature Granulocyte # (Auto) 0.1, Sodium Level 135, Potassium Level 3.6, Chloride Level 104, Carbon Dioxide Level 24, Anion Gap 7, Blood Urea Nitrogen 11, Creatinine 0.63, Estimat Glomerular Filtration Rate 88, BUN/Creatinine Ratio 17, Glucose Level 101, Calcium Level 8.4L, Corrected Calcium 9.3, Total Bilirubin 0.8, Aspartate Amino Transf (AST/SGOT) 28, Alanine Aminotransferase (ALT/SGPT) 24, Alkaline Phosphatase 49, Total Protein 5.3L, Albumin 2.9L Microbiology 08/28/22 MRSA Screen - Final, Complete MRSA not isolated 08/27/22 Urine Culture - Final, Complete Klebsiella pneumoniae Assessment/Plan Assessment/Plan Assess & Plan/Chief Complaint Assessment: Hip fracture Confusion w/h/o dementia on exam historically Post op acute blood loss anemia Plan: Monitor hgb Improved mentation Clinical Quality Measures Admission Status Admission Dx Assessment: Right hip fracture CAD HTN HLP Acute UTI Plan: Proceed with repair DVT/VTE Risk/Contraindication: Contraindications-Pharm: Other *list below* Other: surgery SANJAY RUIZ DO Sep 02, 2022 07:57
[2022-09-02] MEDS: KCL 10 MEQ TAB (MICRO K) PO SCH ×2 (08:18→17:42)
[2022-09-02] MEDS: DOCUSATE SODIUM 100 MG (COLACE) CAP PO SCH ×2 (08:18→20:43)
[2022-09-02] MEDS: PANTOPRAZOLE 20 MG TABLET (PROTONIX) PO SCH (08:19)
[2022-09-02] MEDS: ASPIRIN 81 MG CHEW (CHILDREN'S ASA) PO SCH (08:19)
[2022-09-02] MEDS: lisINopril 5 MG (PRINIVIL) TABLET PO SCH (08:19)
[2022-09-02] MEDS: SENNOSIDES 8.6 MG (SENOKOT) TAB PO SCH ×2 (08:19→20:43)
[2022-09-02] MEDS: CLOPIDOGREL 75 MG (PLAVIX) TABLET PO SCH (08:19)
[2022-09-02] MEDS: [UNRECOGNIZED DRUG - REMARK] OS SCH (08:20)
[2022-09-02] MEDS: TIMOLOL MALEATE 0.5% 5 ML (TIMOPTIC) BTL OP SCH (08:20)
[2022-09-02] MEDS: ACETAMINOPHEN 325 MG TABLET PO PRN ×2 (08:25→17:43)
--- NOTE | 2022-09-02 10:12 | Cardiology Progress Note ---
Subjective Date Seen by Provider: Sep 02, 2022 Time Seen by Provider: 10:11 Subjective/Events-last exam Patient was seen at bedside, sitting comfortably, feeling better. Review of Systems General: No Chills, No Night Sweats; Fatigue; No Malaise, No Appetite, No Other HEENT: No Head Aches, No Visual Changes, No Eye Pain, No Ear Pain, No Dysphasia, No Sinus Congestion, No Post Nasal Drip, No Sore Throat, No Other Pulmonary: No Dyspnea, No Cough, No Pleuritic Chest Pain, No Other Cardiovascular: No: Chest Pain, Palpitations, Orthopnea, Paroxysmal Noc. Dyspnea, Edema, Lt Headedness, Other Objective-Cardiology Exam Last Set of Vital Signs Vital Signs 08/28/22 08/28/22 09/02/22 09/02/22 09:49 16:25 07:42 08:00 Temp 36.8 Pulse 76 Resp 18 B/P (MAP) 156/74 (101) Pulse Ox 98 O2 Delivery Room Air O2 Flow Rate 2.00 FiO2 97 I&O Intake and Output 09/02/22 00:00 Intake Total 820 ml Output Total 1450 ml Balance -630 ml Intake Oral 820 ml IV Total 0 ml Output Urine Total 1450 ml # Voids 1 General: Alert, Oriented X3, Cooperative, No Acute Distress HEENT: Atraumatic, EOMI Neck: Supple, No JVD Lungs: Clear to Auscultation, Normal Air Movement Heart: Regular Rate, Normal S1, Normal S2, No Murmurs Abdomen: Normal Bowel Sounds, Soft Extremities: No Clubbing, No Cyanosis Skin: No Rashes, No Breakdown Neuro: Normal Speech, Sensation Intact Psych/Mental Status: Mental Status NL (deficit noted), Mood NL Results Lab Laboratory Tests 09/02/22 05:20 A/P-Cardiology Admission Diagnosis Hip fracture Coronary artery disease Hyperlipidemia Carotid stenosis Assessment/Plan Right hip fracture, status post nonsyncopal fall Surgical repair on August 28, 2022. Managed by medical team Postop anemia, followed and managed by primary care physician Coronary artery disease, history of myocardial infarction in June 2013, underwent stenting to the mid LAD with Promus element 2.25 x 32 mm Cardiac catheterization after non-ST VA in November 2013 with cardiac catheterization and stenting to the circumflex artery with mini vision 2 x 28. 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 Stress test done in May 2020 with no evidence of ischemia with ejection fraction 75% Echocardiogram in January 2019 with LVH with a EF 55 to 60%, left atrium mildly dilated, PA pressure 25 mmHg Hyperlipidemia, followed by primary care physician Chronic joint pain Carotid stenosis, followed by MICHEL Musa MD Sep 02, 2022 10:12
[2022-09-02 15:31] VITALS: BP 172/81
[2022-09-02] MEDS: ENOXAPARIN 40 MG/0.4 ML (LOVENOX) SYR SC SCH (20:39)
[2022-09-02] MEDS: LUMIGAN 0.01% OPTH SOLN OU SCH (20:41)
[2022-09-03 00:04] VITALS: BP 127/69
[2022-09-03 05:36] LABS: BASOPHILS % (AUTO) 0 % (0-10); EOSINOPHILS # (AUTO) 0.3 10^3/uL (0.0-0.3); EOSINOPHILS % (AUTO) 2 % (0-10); HEMATOCRIT 27 % (35-52); HEMOGLOBIN 8.9 g/dL (11.5-16.0); LYMPHOCYTES # (AUTO) 1.8 10^3/uL (1.0-4.0); LYMPHOCYTES % (AUTO) 15 % (12-44); MEAN CORPUSCULAR HEMOGLOBIN 33 pg (25-34); MEAN CORPUSCULAR HGB CONC 33 g/dL (32-36); MEAN CORPUSCULAR VOLUME 100 fL (80-99); MONOCYTES # (AUTO) 0.6 10^3/uL (0.0-1.0); MONOCYTES % (AUTO) 5 % (0-12); NEUTROPHILS # (AUTO) 9.3 10^3/uL (1.8-7.8); NEUTROPHILS % (AUTO) 77 % (42-75); PLATELET COUNT 179 10^3/uL (130-400)
[2022-09-03] MEDS ORDERED: BIMA2.5D4 OU (05:37)
[2022-09-03] MEDS ORDERED: ASPI-1238 PO (05:37)
[2022-09-03] MEDS ORDERED: OXC5T PO (05:37)
[2022-09-03] MEDS ORDERED: LISI2.5T13 PO (05:37)
[2022-09-03] MEDS ORDERED: BROM3DRO OS (05:37)
[2022-09-03] MEDS ORDERED: OMEP-401 PO (05:37)
[2022-09-03] MEDS ORDERED: LORA-404 PO (05:37)
[2022-09-03] MEDS ORDERED: DOCU100C37 PO (05:37)
[2022-09-03] MEDS ORDERED: TIMO5DRO5 OP (05:37)
[2022-09-03] MEDS ORDERED: ACET325T49 PO (05:37)
[2022-09-03] MEDS ORDERED: ATOR40TA70 PO (05:37)
[2022-09-03] MEDS ORDERED: ENOX40DI8 SC (05:37)
[2022-09-03] MEDS ORDERED: MTP25TSR PO (05:37)
[2022-09-03] MEDS ORDERED: SNN187T PO (05:37)
[2022-09-03] MEDS ORDERED: CLOP75TA28 PO (05:37)
[2022-09-03] MEDS ORDERED: CLN.1T PO (05:37)
[2022-09-03] MEDS ORDERED: POTA-160 PO (05:37)
--- NOTE | 2022-09-03 05:39 | Discharge Inst-Skilled Nursing ---
Discharge Inst-Skilled NF Reconcile Patient Problems Problems Reviewed?: Yes Patient Instructions Patient Problems: Weakness Goal: return home Consult/Follow Up/Orders Follow Up Appt.: Dr Blake 2 weeks [facility] I certify that SNF services are required to be given on an inpatient basis because of the above named patient's need for shelter care on a continuing basis for the conditions(s) for which he/she was receiving inpatient hospital services prior to his/her transfer to the SNF. [facility] Facility Order: Nursing Services, Medical Examiner-Evaluate & Treat, Physical Therapy-Evaluate & Treat, Speech Language-Evaluate & Treat Oxygen Delivery Method: Room Air Discharge Diet: No Restrictions Daily Activity as Tolerated: Yes Resuscitation Status: Full Code New & Resume Previous Orders New Medications: Lorazepam (Ativan) 0.5 Mg Tablet 0.25 MG PO Q6H PRN for ANXIETY, #10 TAB Acetaminophen (Acetaminophen) 325 Mg Tablet 650 MG PO Q4H PRN for TEMPERATURE, #30 TAB Clonidine HCl (Clonidine HCl) 0.1 Mg Tablet 0.1 MG PO Q4H PRN for sbp>170, #15 TAB Docusate Sodium (Docusate Sodium) 100 Mg Capsule 100 MG PO BID, #60 CAP Enoxaparin Sodium (Enoxaparin Sodium) 40 Mg/0.4 Ml Syringe 40 MG SC Q24H, #14 SYRINGE Oxycodone Hcl (Oxyir Tablet) 5 Mg Tab 5 MG PO Q4H PRN for PAIN-SEE DOSE INSTRUCTIONS, #20 TAB Potassium Chloride (Klor-Con 10) 10 Meq Tablet.er 10 MEQ PO DAILY, #30 TAB Sennosides (Senna Lax) 8.6 Mg Tablet 8.6 MG PO BID, #60 TAB Continued Medications: Aspirin (Aspirin EC) 81 Mg Tablet.dr 81 MG PO DAILY, #30 TAB (This prescription has been renewed) Atorvastatin Calcium (Atorvastatin Calcium) 40 Mg Tablet 40 MG PO DAILY, #30 TAB (This prescription has been renewed) Bimatoprost (Lumigan) 0.01 % Drops 1 DROP OU HS, #1 EA (This prescription has been renewed) Bromfenac Sodium (Prolensa) 0.07 % Drops 1 DROP OS DAILY, #1 EA (This prescription has been renewed) Clopidogrel Bisulfate (Clopidogrel) 75 Mg Tablet 75 MG PO DAILY, #30 TAB (This prescription has been renewed) Lisinopril (Lisinopril) 2.5 Mg Tablet 2.5 MG PO DAILY, #30 TAB (This prescription has been renewed) Metoprolol Succinate (Metoprolol Succinate) 25 Mg Tab.er.24h 25 MG PO DAILY, #30 TAB (This prescription has been renewed) Omeprazole (Omeprazole) 20 Mg Tab.rap.dr 20 MG PO DAILY, #30 EA (This prescription has been renewed) Timolol Maleate (Timolol Maleate 0.5%) 0.5 % Drops 1 DROP OP DAILY, #1 EA (This prescription has been renewed) Cortney Dozier Sep 03, 2022 05:38 CORTNEY DOZIER DO Sep 03, 2022 05:39
--- NOTE | 2022-09-03 05:39 | Discharge Summary ---
Diagnosis/Chief Complaint Date of Admission Aug 27, 2022 at 19:22 Date of Discharge Discharge Date: Sep 03, 2022 Discharge Diagnosis Assessment: Hip fracture Confusion w/h/o dementia on exam historically Post op acute blood loss anemia CAD HTN Reason Hospital Visit Discharge Summary Discharge Physical Examination Allergies: Coded Allergies: No Known Drug Allergies (Unverified , 06/02/13) Vitals & I&Os Vital Signs Date Time Temp Pulse Resp B/P (MAP) Pulse Ox O2 Delivery O2 Flow Rate FiO2 09/03/22 11:45 37.1 68 18 140/74 97 Room Air 2.00 General Appearance: Alert, Oriented X3, Cooperative, Other (poor recall) Respiratory: Clear to Auscultation Cardiovascular: Regular Rate Hospital Course Was the Problem List Reviewed?: Yes Hospital course: Patient had an uneventful hospital course after she had a fall at home and sustained a right hip fracture which was repaired in an uncomplicated manner. Pain was well controlled. Bowel regimen initiated with good results. Cognition was an issue which has been progressive per primary care provider with obvious dementia with delirium which improved immensely throughout the course but she required a shelter placement for continued skilled care. She participated in all therapy and patient was voiding well and bowels are moving and she was deemed stable for discharge to the shelter. Labs (last 24 hrs) Laboratory Tests 08/27/22 18:29: White Blood Count 7.8, Red Blood Count 3.65L, Hemoglobin 11.9, Hematocrit 37, Mean Corpuscular Volume 101H, Mean Corpuscular Hemoglobin 33, Mean Corpuscular Hemoglobin Concent 32, Red Cell Distribution Width 12.4, Platelet Count 193, Mean Platelet Volume 9.2, Immature Granulocyte % (Auto) 1, Neutrophils (%) (Auto) 59, Lymphocytes (%) (Auto) 26, Monocytes (%) (Auto) 8, Eosinophils (%) (Auto) 6, Basophils (%) (Auto) 1, Neutrophils # (Auto) 4.6, Lymphocytes # (Auto) 2.1, Monocytes # (Auto) 0.6, Eosinophils # (Auto) 0.5H, Basophils # (Auto) 0.1, Immature Granulocyte # (Auto) 0.0, Prothrombin Time 12.8, INR Comment 0.9, Activated Partial Thromboplast Time 31, Sodium Level 137, Potassium Level 4.0, Chloride Level 100, Carbon Dioxide Level 26, Anion Gap 11, Blood Urea Nitrogen 16, Creatinine 0.81, Estimat Glomerular Filtration Rate 72, BUN/Creatinine Ratio 20, Glucose Level 75, Calcium Level 9.2, Corrected Calcium 9.0, Total Bilirubin 0.5, Aspartate Amino Transf (AST/SGOT) 27, Alanine Aminotransferase (ALT/SGPT) 21, Alkaline Phosphatase 76, Total Protein 7.0, Albumin 4.3 08/27/22 19:22: Lab Scanned Report Referred Lab Report 08/27/22 19:55: Urine Color YELLOW, Urine Clarity CLEAR, Urine pH 6.0, Urine Specific [place] 1.020, Urine Protein NEGATIVE, Urine Glucose (UA) NEGATIVE, Urine Ketones TRACEH , Urine Nitrite POSITIVEH, Urine Bilirubin NEGATIVE, Urine Urobilinogen 0.2, Urine Leukocyte Esterase TRACEH, Urine RBC (Auto) TRACE-IH, Urine RBC RARE, Urine WBC 2-5, Urine Crystals NONE, Urine Bacteria LARGEH, Urine Casts NONE, Urine Mucus NEGATIVE, Urine Culture Indicated YES 08/28/22 05:00: White Blood Count 8.0, Red Blood Count 3.30L, Hemoglobin 11.0L, Hematocrit 33L, Mean Corpuscular Volume 99, Mean Corpuscular Hemoglobin 33, Mean Corpuscular Hemoglobin Concent 34, Red Cell Distribution Width 12.2, Platelet Count 151, Mean Platelet Volume 9.1, Immature Granulocyte % (Auto) 1, Neutrophils (%) (Auto) 71, Lymphocytes (%) (Auto) 19, Monocytes (%) (Auto) 7, Eosinophils (%) (Auto) 2, Basophils (%) (Auto) 0, Neutrophils # (Auto) 5.6, Lymphocytes # (Auto) 1.6, Monocytes # (Auto) 0.6, Eosinophils # (Auto) 0.2, Basophils # (Auto) 0.0, Immature Granulocyte # (Auto) 0.0 08/28/22 05:25: Sodium Level 133L, Potassium Level 3.9, Chloride Level 102, Carbon Dioxide Level 22, Anion Gap 9, Blood Urea Nitrogen 13, Creatinine 0.73, Estimat Glomerular Filtration Rate 82, BUN/Creatinine Ratio 18, Glucose Level 102, Calcium Level 8.4L, Corrected Calcium 8.9, Total Bilirubin 0.7, Aspartate Amino Transf (AST/SGOT) 24, Alanine Aminotransferase (ALT/SGPT) 21, Alkaline Phosphatase 52, Total Protein 5.6L, Albumin 3.4 08/29/22 05:16: Sodium Level 132L, Potassium Level 4.2, Chloride Level 102, Carbon Dioxide Level 19L, Anion Gap 11, Blood Urea Nitrogen 13, Creatinine 0.67, Estimat Glomerular Filtration Rate 87, BUN/Creatinine Ratio 19, Glucose Level 123H, Calcium Level 8.4L, Corrected Calcium 9.1, Total Bilirubin 0.7, Aspartate Amino Transf (AST/SGOT) 22, Alanine Aminotransferase (ALT/SGPT) 17, Alkaline Phosphatase 45, Total Protein 5.2L, Albumin 3.1L, White Blood Count 8.4, Red Blood Count 3.01L, Hemoglobin 10.0L, Hematocrit 30L, Mean Corpuscular Volume 101H, Mean Corpuscular Hemoglobin 33, Mean Corpuscular Hemoglobin Concent 33, Red Cell Distribution Width 12.2, Platelet Count 131, Mean Platelet Volume 9.0, Immature Granulocyte % (Auto) 0, Neutrophils (%) (Auto) 77H, Lymphocytes (%) (Auto) 13, Monocytes (%) (Auto) 9, Eosinophils (%) (Auto) 0, Basophils (%) (Auto) 0, Neutrophils # (Auto) 6.5, Lymphocytes # (Auto) 1.1, Monocytes # (Auto) 0.7, Eosinophils # (Auto) 0.0, Basophils # (Auto) 0.0, Immature Granulocyte # (Auto) 0.0 08/30/22 05:00: Sodium Level 137, Potassium Level 3.8, Chloride Level 106, Carbon Dioxide Level 20L, Anion Gap 11, Blood Urea Nitrogen 13, Creatinine 0.66, Estimat Glomerular Filtration Rate 87, BUN/Creatinine Ratio 20, Glucose Level 110H, Calcium Level 7.9L, Corrected Calcium 8.6, Total Bilirubin 0.6, Aspartate Amino Transf (AST/SGOT) 22, Alanine Aminotransferase (ALT/SGPT) 11, Alkaline Phosphatase 47, Total Protein 5.3L, Albumin 3.1L, White Blood Count 7.2, Red Blood Count 2.69L, Hemoglobin 9.0L, Hematocrit 27L, Mean Corpuscular Volume 100H, Mean Corpuscular Hemoglobin 34, Mean Corpuscular Hemoglobin Concent 34, Red Cell Distribution Width 12.7, Platelet Count 121L, Mean Platelet Volume 9.4, Immature Granulocyte % (Auto) 1, Neutrophils (%) (Auto) 71, Lymphocytes (%) (Auto) 17, Monocytes (%) (Auto) 8, Eosinophils (%) (Auto) 3, Basophils (%) (Auto) 0, Neutrophils # (Auto) 5.1, Lymphocytes # (Auto) 1.3, Monocytes # (Auto) 0.6, Eosinophils # (Auto) 0.2, Basophils # (Auto) 0.0, Immature Granulocyte # (Auto) 0.1 08/31/22 05:30: Iron Level 19L, Vitamin B12 Level 262 08/31/22 05:38: White Blood Count 6.7, Red Blood Count 2.41L, Hemoglobin 8.1L, Hematocrit 24L, Mean Corpuscular Volume 100H, Mean Corpuscular Hemoglobin 34, Mean Corpuscular Hemoglobin Concent 34, Red Cell Distribution Width 12.5, Platelet Count 127L, Mean Platelet Volume 9.0, Immature Granulocyte % (Auto) 1, Neutrophils (%) (Auto) 70, Lymphocytes (%) (Auto) 18, Monocytes (%) (Auto) 8, Eosinophils (%) (Auto) 3, Basophils (%) (Auto) 0, Neutrophils # (Auto) 4.7, Lymphocytes # (Auto) 1.2, Monocytes # (Auto) 0.5, Eosinophils # (Auto) 0.2, Basophils # (Auto) 0.0, Immature Granulocyte # (Auto) 0.1, Percent Immature Platelet Fraction 1.4, Sodium Level 134L, Potassium Level 3.4L, Chloride Level 106, Carbon Dioxide Level 19L, Anion Gap 9, Blood Urea Nitrogen 10, Creatinine 0.57L, Estimat Glomerular Filtration Rate 90, BUN/Creatinine Ratio 18, Glucose Level 110H, Calcium Level 7.9L, Corrected Calcium 8.9, Total Bilirubin 0.8, Aspartate Amino Transf (AST/SGOT) 26, Alanine Aminotransferase (ALT/SGPT) 21, Alkaline Phosp hatase 49, Total Protein 4.8L, Albumin 2.8L 09/01/22 05:09: White Blood Count 5.9, Red Blood Count 2.41L, Hemoglobin 8.1L, Hematocrit 24L, M jacek Corpuscular Volume 100H, Mean Corpuscular Hemoglobin 34, Mean Corpuscular Hemoglobin Concent 34, Red Cell Distribution Width 12.5, Platelet Count 126L, Mean Platelet Volume 9.1, Immature Granulocyte % (Auto) 1, Neutrophils (%) (Auto) 59, Lymphocytes (%) (Auto) 26, Monocytes (%) (Auto) 8, Eosinophils (%) (Auto) 5, Basophils (%) (Auto) 1, Neutrophils # (Auto) 3.5, Lymphocytes # (Auto) 1.6, Monocytes # (Auto) 0.5, Eosinophils # (Auto) 0.3, Basophils # (Auto) 0.0, Immature Granulocyte # (Auto) 0.1, Sodium Level 136, Potassium Level 3.6, Chloride Level 106, Carbon Dioxide Level 23, Anion Gap 7, Blood Urea Nitrogen 9, Creatinine 0.58L, Estimat Glomerular Filtration Rate 90, BUN/Creatinine Ratio 16, Glucose Level 92, Calcium Level 8.3L, Corrected Calcium 9.3, Total Bilirubin 0.7, Aspartate Amino Transf (AST/SGOT) 31, Alanine Aminotransferase (ALT/SGPT) 28, Alkaline Phosphatase 52, Total Protein 4.9L, Albumin 2.8L 09/02/22 05:20: White Blood Count 6.5, Red Blood Count 2.48L, Hemoglobin 8.1L, Hematocrit 25L, Mean Corpuscular Volume 102H, Mean Corpuscular Hemoglobin 33, Mean Corpuscular Hemoglobin Concent 32, Red Cell Distribution Width 12.7, Platelet Count 161, Mean Platelet Volume 9.4, Immature Granulocyte % (Auto) 1, Neutrophils (%) (Auto) 68, Lymphocytes (%) (Auto) 19, Monocytes (%) (Auto) 8, Eosinophils (%) (Auto) 4, Basophils (%) (Auto) 1, Neutrophils # (Auto) 4.4, Lymphocytes # (Auto) 1.2, Monocytes # (Auto) 0.5, Eosinophils # (Auto) 0.3, Basophils # (Auto) 0.0, Immature Granulocyte # (Auto) 0.1, Sodium Level 135, Potassium Level 3.6, Chloride Level 104, Carbon Dioxide Level 24, Anion Gap 7, Blood Urea Nitrogen 11, Creatinine 0.63, Estimat Glomerular Filtration Rate 88, BUN/Creatinine Ratio 17, Glucose Level 101, Calcium Level 8.4L, Corrected Calcium 9.3, Total Bilirubin 0.8, Aspartate Amino Transf (AST/SGOT) 28, Alanine Aminotransferase (ALT/SGPT) 24, Alkaline Phosphatase 49, Total Protein 5.3L, Albumin 2.9L 09/02/22 15:15: SARS-CoV-2 RNA (RT-PCR) Not Detected 09/03/22 05:20: White Blood Count 12.0H, Red Blood Count 2.68L, Hemoglobin 8.9L, Hematocrit 27L, Mean Corpuscular Volume 100H, Mean Corpuscular Hemoglobin 33, Mean Corpuscular Hemoglobin Concent 33, Red Cell Distribution Width 12.7, Platelet Count 179, Mean Platelet Volume 9.0, Immature Granulocyte % (Auto) 1, Neutrophils (%) (Auto) 77H, Lymphocytes (%) (Auto) 15, Monocytes (%) (Auto) 5, Eosinophils (%) (Auto) 2, Basophils (%) (Auto) 0, Neutrophils # (Auto) 9.3H, Lymphocytes # (Auto) 1.8, Monocytes # (Auto) 0.6, Eosinophils # (Auto) 0.3, Basophils # (Auto) 0.0, Immature Granulocyte # (Auto) 0.1, Sodium Level 132L, Potassium Level 4.0, Chloride Level 102, Carbon Dioxide Level 22, Anion Gap 8, Blood Urea Nitrogen 10, Creatinine 0.60, Estimat Glomerular Filtration Rate 89, BUN/Creatinine Ratio 17, Glucose Level 105, Calcium Level 8.5, Corrected Calcium 9.2, Total Bilirubin 1.0, Aspartate Amino Transf (AST/SGOT) 34, Alanine Aminotransferase (ALT/SGPT) 29, Alkaline Phosphatase 61, Total Protein 5.7L, Albumin 3.1L Microbiology 08/28/22 MRSA Screen - Final, Complete MRSA not isolated 08/27/22 Urine Culture - Final, Complete Klebsiella pneumoniae Pending Labs Microbiology Date/Time Source Procedure Growth Status 08/28/22 08:26 Nasal MRSA Screen - Final MRSA not isolated Complete 08/27/22 19:55 Urine Nicholson Cath Urine Culture - Final Klebsiella pneumoniae Complete Laboratory Tests 08/27/22 18:29: White Blood Count 7.8, Red Blood Count 3.65, Hemoglobin 11.9, Hematocrit 37, Mean Corpuscular Volume 101, Mean Corpuscular Hemoglobin 33, Mean Corpuscular Hemoglobin Concent 32, Red Cell Distribution Width 12.4, Platelet Count 193, Mean Platelet Volume 9.2, Immature Granulocyte % (Auto) 1, Neutrophils (%) (Auto) 59, Lymphocytes (%) (Auto) 26, Monocytes (%) (Auto) 8, Eosinophils (%) (Auto) 6, Basophils (%) (Auto) 1, Neutrophils # (Auto) 4.6, Lymphocytes # (Auto) 2.1, Monocytes # (Auto) 0.6, Eosinophils # (Auto) 0.5, Basophils # (Auto) 0.1, Immature Granulocyte # (Auto) 0.0, Prothrombin Time 12.8, INR Comment 0.9, Activated Partial Thromboplast Time 31, Sodium Level 137, Potassium Level 4.0, Chloride Level 100, Carbon Dioxide Level 26, Anion Gap 11, Blood Urea Nitrogen 16, Creatinine 0.81, Estimat Glomerular Filtration Rate 72, BUN/Creatinine Ratio 20, Glucose Level 75, Calcium Level 9.2, Corrected Calcium 9.0, Total Bilirubin 0.5, Aspartate Amino Transf (AST/SGOT) 27, Alanine Aminotransferase (ALT/SGPT) 21, Alkaline Phosphatase 76, Total Protein 7.0, Albumin 4.3 08/27/22 19:22: Lab Scanned Report Referred Lab Report 08/27/22 19:55: Urine Color YELLOW, Urine Clarity CLEAR, Urine pH 6.0, Urine Specific [place] 1.020, Urine Protein NEGATIVE, Urine Glucose (UA) NEGATIVE, Urine Ketones TRACE, Urine Nitrite POSITIVE, Urine Bilirubin NEGATIVE, Urine Urobilinogen 0.2, Urine Leukocyte Esterase TRACE, Urine RBC (Auto) TRACE-I, Urine RBC RARE, Urine WBC 2- 5, Urine Crystals NONE, Urine Bacteria LARGE, Urine Casts NONE, Urine Mucus NEGATIVE, Urine Culture Indicated YES 08/28/22 05:00: White Blood Count 8.0, Red Blood Count 3.30, Hemoglobin 11.0, Hematocrit 33, Mean Corpuscular Volume 99, Mean Corpuscular Hemoglobin 33, Mean Corpuscular Hemoglobin Concent 34, Red Cell Distribution Width 12.2, Platelet Count 151, Mean Platelet Volume 9.1, Immature Granulocyte % (Auto) 1, Neutrophils (%) (Auto) 71, Lymphocytes (%) (Auto) 19, Monocytes (%) (Auto) 7, Eosinophils (%) (Auto) 2, Basophils (%) (Auto) 0, Neutrophils # (Auto) 5.6, Lymphocytes # (Auto) 1.6, Monocytes # (Auto) 0.6, Eosinophils # (Auto) 0.2, Basophils # (Auto) 0.0, Immature Granulocyte # (Auto) 0.0 08/28/22 05:25: Sodium Level 133, Potassium Level 3.9, Chloride Level 102, Carbon Dioxide Level 22, Anion Gap 9, Blood Urea Nitrogen 13, Creatinine 0.73, Estimat Glomerular Filtration Rate 82, BUN/Creatinine Ratio 18, Glucose Level 102, Calcium Level 8.4, Corrected Calcium 8.9, Total Bilirubin 0.7, Aspartate Amino Transf (AST/SGOT) 24, Alanine Aminotransferase (ALT/SGPT) 21, Alkaline Phosphatase 52, Total Protein 5.6, Albumin 3.4 08/29/22 05:16: Sodium Level 132, Potassium Level 4.2, Chloride Level 102, Carbon Dioxide Level 19, Anion Gap 11, Blood Urea Nitrogen 13, Creatinine 0.67, Estimat Glomerular Filtration Rate 87, BUN/Creatinine Ratio 19, Glucose Level 123, Calcium Level 8.4, Corrected Calcium 9.1, Total Bilirubin 0.7, Aspartate Amino Transf (AST/SGOT) 22, Alanine Aminotransferase (ALT/SGPT) 17, Alkaline Phosphatase 45, Total Protein 5.2, Albumin 3.1, White Blood Count 8.4, Red Blood Count 3.01, Hemoglobin 10.0, Hematocrit 30, Mean Corpuscular Volume 101, Mean Corpuscular Hemoglobin 33, Mean Corpuscular Hemoglobin Concent 33, Red Cell Distribution Width 12.2, Platelet Count 131, Mean Platelet Volume 9.0, Immature Granulocyte % (Auto) 0, Neutrophils (%) (Auto) 77, Lymphocytes (%) (Auto) 13, Monocytes (%) (Auto) 9, Eosinophils (%) (Auto) 0, Basophils (%) (Auto) 0, Neutrophils # (Auto) 6.5, Lymphocytes # (Auto) 1.1, Monocytes # (Auto) 0.7, Eosinophils # (Auto) 0.0, Basophils # (Auto) 0.0, Immature Granulocyte # (Auto) 0.0 08/30/22 05:00: Sodium Level 137, Potassium Level 3.8, Chloride Level 106, Carbon Dioxide Level 20, Anion Gap 11, Blood Urea Nitrogen 13, Creatinine 0.66, Estimat Glomerular Filtration Rate 87, BUN/Creatinine Ratio 20, Glucose Level 110, Calcium Level 7.9, Corrected Calcium 8.6, Total Bilirubin 0.6, Aspartate Amino Transf (AST/SGOT) 22, Alanine Aminotransferase (ALT/SGPT) 11, Alkaline Phosphatase 47, Total Protein 5.3, Albumin 3.1, White Blood Count 7.2, Red Blood Count 2.69, Hemoglobin 9.0, Hematocrit 27, Mean Corpuscular Volume 100, Mean Corpuscular Hemoglobin 34, Mean Corpuscular Hemoglobin Concent 34, Red Cell Distribution Width 12.7, Platelet Count 121, Mean Platelet Volume 9.4, Immature Granulocyte % (Auto) 1, Neutrophils (%) (Auto) 71, Lymphocytes (%) (Auto) 17, Monocytes (%) (Auto) 8, Eosinophils (%) (Auto) 3, Basophils (%) (Auto) 0, Neutrophils # (Auto) 5.1, Lymphocytes # (Auto) 1.3, Monocytes # (Auto) 0.6, Eosinophils # (Auto) 0.2, Basophils # (Auto) 0.0, Immature Granulocyte # (Auto) 0.1 08/31/22 05:30: Iron Level 19, Vitamin B12 Level 262 08/31/22 05:38: White Blood Count 6.7, Red Blood Count 2.41, Hemoglobin 8.1, Hematocrit 24, Mean Corpuscular Volume 100, Mean Corpuscular Hemoglobin 34, Mean Corpuscular Hemoglobin Concent 34, Red Cell Distribution Width 12.5, Platelet Count 127, Mean Platelet Volume 9.0, Immature Granulocyte % (Auto) 1, Neutrophils (%) (Auto) 70, Lymphocytes (%) (Auto) 18, Monocytes (%) (Auto) 8, Eosinophils (%) (Auto) 3, Basophils (%) (Auto) 0, Neutrophils # (Auto) 4.7, Lymphocytes # (Auto) 1.2, Monocytes # (Auto) 0.5, Eosinophils # (Auto) 0.2, Basophils # (Auto) 0.0, Immature Granulocyte # (Auto) 0.1, Percent Immature Platelet Fraction 1.4, Sodium Level 134, Potassium Level 3.4, Chloride Level 106, Carbon Dioxide Level 19, Anion Gap 9, Blood Urea Nitrogen 10, Creatinine 0.57, Estimat Glomerular Filtration Rate 90, BUN/Creatinine Ratio 18, Glucose Level 110, Calcium Level 7.9, Corrected Calcium 8.9, Total Bilirubin 0.8, Aspartate Amino Transf (AST/SGOT) 26, Alanine Aminotransferase (ALT/SGPT) 21, Alkaline Phosphatase 49, Total Protein 4.8, Albumin 2.8 09/01/22 05:09: White Blood Count 5.9, Red Blood Count 2.41, Hemoglobin 8.1, Hematocrit 24, Mean Corpuscular Volume 100, Mean Corpuscular Hemoglobin 34, Mean Corpuscular Hemoglobin Concent 34, Red Cell Distribution Width 12.5, Platelet Count 126, Mean Platelet Volume 9.1, Immature Granulocyte % (Auto) 1, Neutrophils (%) (Auto) 59, Lymphocytes (%) (Auto) 26, Monocytes (%) (Auto) 8, Eosinophils (%) (Auto) 5, Basophils (%) (Auto) 1, Neutrophils # (Auto) 3.5, Lymphocytes # (Auto) 1.6, Monocytes # (Auto) 0.5, Eosinophils # (Auto) 0.3, Basophils # (Auto) 0.0, Immature Granulocyte # (Auto) 0.1, Sodium Level 136, Potassium Level 3.6, Chloride Level 106, Carbon Dioxide Level 23, Anion Gap 7, Blood Urea Nitrogen 9, Creatinine 0.58, Estimat Glomerular Filtration Rate 90, BUN/Creatinine Ratio 16, Glucose Level 92, Calcium Level 8.3, Corrected Calcium 9.3, Total Bilirubin 0.7, Aspartate Amino Transf (AST/SGOT) 31, Alanine Aminotransferase (ALT/SGPT) 28, Alkaline Phosphatase 52, Total Protein 4.9, Albumin 2.8 09/02/22 05:20: White Blood Count 6.5, Red Blood Count 2.48, Hemoglobin 8.1, Hematocrit 25, Mean Corpuscular Volume 102, Mean Corpuscular Hemoglobin 33, Mean Corpuscular Hemoglobin Concent 32, Red Cell Distribution Width 12.7, Platelet Count 161, Mean Platelet Volume 9.4, Immature Granulocyte % (Auto) 1, Neutrophils (%) (Auto) 68, Lymphocytes (%) (Auto) 19, Monocytes (%) (Auto) 8, Eosinophils (%) (Auto) 4, Basophils (%) (Auto) 1, Neutrophils # (Auto) 4.4, Lymphocytes # (Auto) 1.2, Monocytes # (Auto) 0.5, Eosinophils # (Auto) 0.3, Basophils # (Auto) 0.0, Immature Granulocyte # (Auto) 0.1, Sodium Level 135, Potassium Level 3.6, Chloride Level 104, Carbon Dioxide Level 24, Anion Gap 7, Blood Urea Nitrogen 11, Creatinine 0.63, Estimat Glomerular Filtration Rate 88, BUN/Creatinine Ratio 17, Glucose Level 101, Calcium Level 8.4, Corrected Calcium 9.3, Total Bilirubin 0.8, Aspartate Amino Transf (AST/SGOT) 28, Alanine Aminotransferase (ALT/SGPT) 24, Alkaline Phosphatase 49, Total Protein 5.3, Albumin 2.9 09/02/22 15:15: SARS-CoV-2 RNA (RT-PCR) Not Detected 09/03/22 05:20: White Blood Count 12.0, Red Blood Count 2.68, Hemoglobin 8.9, Hematocrit 27, Suzie n Corpuscular Volume 100, Mean Corpuscular Hemoglobin 33, Mean Corpuscular Hemoglobin Concent 33, Red Cell Distribution Width 12.7, Platelet Count 179, Mean Platelet Volume 9.0, Immature Granulocyte % (Auto) 1, Neutrophils (%) (Auto) 77, Lymphocytes (%) (Auto) 15, Monocytes (%) (Auto) 5, Eosinophils (%) (Auto) 2, Basophils (%) (Auto) 0, Neutrophils # (Auto) 9.3, Lymphocytes # (Auto) 1.8, Monocytes # (Auto) 0.6, Eosinophils # (Auto) 0.3, Basophils # (Auto) 0.0, Immature Granulocyte # (Auto) 0.1, Sodium Level 132, Potassium Level 4.0, Chloride Level 102, Carbon Dioxide Level 22, Anion Gap 8, Blood Urea Nitrogen 10, Creatinine 0.60, Estimat Glomerular Filtration Rate 89, BUN/Creatinine Ratio 17, Glucose Level 105, Calcium Level 8.5, Corrected Calcium 9.2, Total Bilirubin 1.0, Aspartate Amino Transf (AST/SGOT) 34, Alanine Aminotransferase (ALT/SGPT) 29, Alkaline Phosphatase 61, Total Protein 5.7, Albumin 3.1 Discharge Home Medications: Active Scripts Active Ativan (Lorazepam) 0.5 Mg Tablet 0.25 Mg PO Q6H PRN Senna Lax (Sennosides) 8.6 Mg Tablet 8.6 Mg PO BID Docusate Sodium 100 Mg Capsule 100 Mg PO BID Klor-Con 10 (Potassium Chloride) 10 Meq Tablet.er 10 Meq PO DAILY Acetaminophen 325 Mg Tablet 650 Mg PO Q4H PRN Oxyir Tablet (Oxycodone HCl) 5 Mg Tab 5 Mg PO Q4H PRN Clonidine HCl 0.1 Mg Tablet 0.1 Mg PO Q4H PRN Enoxaparin Sodium 40 Mg/0.4 Ml Syringe 40 Mg SC Q24H Omeprazole 20 Mg Tab.rap.dr 20 Mg PO DAILY Aspirin EC (Aspirin) 81 Mg Tablet.dr 81 Mg PO DAILY Timolol Maleate 0.5% (Timolol Maleate) 0.5 % Drops 1 Drop OP DAILY Clopidogrel (Clopidogrel Bisulfate) 75 Mg Tablet 75 Mg PO DAILY Lumigan (Bimatoprost) 0.01 % Drops 1 Drop OU HS Prolensa (Bromfenac Sodium) 0.07 % Drops 1 Drop OS DAILY Metoprolol Succinate 25 Mg Tab.er.24h 25 Mg PO DAILY Atorvastatin Calcium 40 Mg Tablet 40 Mg PO DAILY Lisinopril 2.5 Mg Tablet 2.5 Mg PO DAILY Instructions to patient/family Please see electronic discharge instructions given to patient. Clinical Quality Measures DVT/VTE Risk/Contraindication: Contraindications-Pharm: Other *list below* Other: surgery SANJAY RUIZ DO Sep 03, 2022 05:39
[2022-09-03 05:53] LABS: ALBUMIN 3.1 GM/DL (3.2-4.5)
[2022-09-03 05:55] LABS: CALCIUM 8.5 MG/DL (8.5-10.1)
[2022-09-03 05:56] LABS: TOTAL PROTEIN 5.7 GM/DL (6.4-8.2)
[2022-09-03 05:59] LABS: CREATININE SERUM 0.6 MG/DL (0.60-1.30)
[2022-09-03 07:26] VITALS: BP 140/74
[2022-09-03] MEDS: CLOPIDOGREL 75 MG (PLAVIX) TABLET PO SCH (07:50)
[2022-09-03] MEDS: SENNOSIDES 8.6 MG (SENOKOT) TAB PO SCH (07:50)
[2022-09-03] MEDS: lisINopril 5 MG (PRINIVIL) TABLET PO SCH (07:50)
[2022-09-03] MEDS: KCL 10 MEQ TAB (MICRO K) PO SCH (07:50)
[2022-09-03] MEDS: PANTOPRAZOLE 20 MG TABLET (PROTONIX) PO SCH (07:50)
[2022-09-03] MEDS: TIMOLOL MALEATE 0.5% 5 ML (TIMOPTIC) BTL OP SCH (07:50)
[2022-09-03] MEDS: DOCUSATE SODIUM 100 MG (COLACE) CAP PO SCH (07:51)
[2022-09-03] MEDS: [UNRECOGNIZED DRUG - REMARK] OS SCH (07:51)
[2022-09-03] MEDS: ASPIRIN 81 MG CHEW (CHILDREN'S ASA) PO SCH (07:51)
--- NOTE | 2022-09-03 10:26 | Physical Therapy Daily Note ---
PT Daily Note-Current Subjective Patient and spouse agree to PT. Pain Section J - Health Conditions 1. Rarely or not at all 2. Occasionally 3. Frequently 4. Almost constantly 8. Unable to answer Pain Effect on Sleep: 3 Pain Interference with Therapy: 3 Pain Interference w/Day-to-Day: 3 Mental Status Patient Orientation: Person, Time Transfers SCALE: Activities may be completed with or without assistive devices. 6-Uwwfbgropk-dtxsufh completes the activity by him/herself with no assistance from a helper. 5-Set-up or Clean-up Assistance-helper sets up or cleans up; patient completes activity. [place] assists only prior to or following the activity. 4-Supervision or Touching Assistance-helper provides verbal cues and/or touching/steadying and/or contact guard assistance as patient completes activity. Assistance may be provided throughout the activity or intermittently. 3-Partial/Moderate Assistance-helper does LESS THAN HALF the effort. [place] lifts, holds or supports trunk or limbs, but provides less than half the effort. 2-Substantial/Maximal Assistance-helper does MORE THAN HALF the effort. [place] lifts or holds trunk or limbs and provides more than half the effort. 4-Yydgppyrv-woxbit does ALL the effort. Patient does none of the effort to complete the activity. Or, the assistance of 2 or more helpers is required for the patient to complete the activity. If activity was not attempted, code reason: 7-Patient Refused. 9-Not Applicable-not attempted and the patient did not perform the activity before the current illness, exacerbation or injury. 10-Not Attempted due to Environmental Limitations-(lack of equipment, weather restraints, etc.). 88-Not Attempted due to Medical Conditions or Safety Concerns. Sit to Stand (QC): 3 Weight Bearing Right Lower Extremity: Right Weight Bearing/Tolerated Gait Training Distance: 150' Walk 10 feet (QC): 3 Walk 50 ft with 2 Turns(QC): 3 Walk 150 ft (QC): 3 Gait Assistive Device: FWW VC's for body placement in FWW (patient relies heavily on bilateral UE's with FWW use) Exercises Seated Therapy Exercises: Ankle pumps, Long arc quads Seated Reps: 15 Assessment Patient much improved with gross motor skills and will dismiss to [place] on this date for skilled stay. Patient and spouse are highly motivated with progress. 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 Civil Project Engineer Goals PT Long-Term Goals Time Frame: Sep 05, 2022 Roll Left & Right (QC): 6 Sit to Lying (QC): 4 Lying-Sitting on Side/Bed(QC): 4 Sit to Stand (QC): 4 Chair/Bod-rx-Esrls Xfer(QC): 4 Walk 10 feet (QC): 4 Walk 50ft with 2 Turns (QC): 4 Walk 150 ft (QC): 4 PT Plan Treatment/Plan Treatment Plan: Discontinue PT Treatment Plan: Bed Mobility, Education, Functional Activity Demetris, Functional Strength, Gait, Safety, Therapeutic Exercise, Transfers Treatment Duration: Sep 05, 2022 Frequency: 11 times per week Estimated Hrs Per Day: .25 hour per day Patient and/or Family Agrees t: Yes Time/GCodes Time In: 850 Time Out: 908 Total Billed Treatment Time: 18 Total Billed Treatment 1 visit GT 18 min NATALYA ARCOS PT Sep 03, 2022 10:26
--- NOTE | 2022-09-03 10:55 | Progress Note ---
ELIZABET CARIAS 09/03/22 1055: Progress Note 81 YO Sonia Aguirre, with PMH of CAD, HTN, and carotid stenosis was admitted on 08/27/22 due to right hip fracture, that was surgically repaired on 08/28/[address] Wright. She was managed for post-op anemia that has now improved, with appropriate Hb levels today. She was also treated for a UTI, that was culture positive for Klebsiella, responded well to abx. Pt is complaint free at this time, and is being dismissed to [facility] today. She was started on lorazepam (0.25 MG Q6H PRN), acetaminophen (325 mg PRN), clonidine (0.1 MG Q4H for SBP >170), lovenox (40 MG SC Q24H), oxycodone (5 MG Q4H prn), potassium-chloride (10 MEQ PO daily), sennosides (8.6 MG PO BID). Continue home medications as prx. CORTNEY RUIZ DO 09/04/22 0511: Supervisory-Addendum Brief Verification & Attestation Participated in pt care: history, MDM, physical Personally performed: exam, history, MDM, supervision of care Care discussed with: Medical Student Procedures: n/a Results interpretation: Verified all documentation Verification and Attestation of Medical Student E/M Service A medical student performed and documented this service in my presence. I revie wed and verified all information documented by the medical student and made modifications to such information, when appropriate. I personally performed the physical exam and medical decision making. Cortney Ruiz Sep 04, 2022,05:11 ELIZABET CARIAS Sep 03, 2022 10:55 CORTNEY RUIZ DO Sep 04, 2022 05:11
[2022-09-03 11:45] VITALS: BP 140/74
== END 2022-09-03 11:45 | DRG 522 ==
LOC: EDUNIT# 18:24 → ER 18:26 → 4TH 19:22
PROVIDERS: ADMIT Internal Medicine; ATTEND Internal Medicine
PROC: 0SRR019 Replacement of Right Hip Joint, Femoral Surface with Metal Synthetic Substitute, Cemented, Open Approach (ICD-10-PCS; principal; 2022-08-28 13:52)
DX: S72.011A Unspecified intracapsular fracture of right femur, initial encounter for closed fracture (principal); N39.0 Urinary tract infection, site not specified; F05 Delirium due to known physiological condition; E87.1 Hypo-osmolality and hyponatremia; D62 Acute posthemorrhagic anemia; F03.90 Unspecified dementia, unspecified severity, without behavioral disturbance, psychotic disturbance, mood disturbance, and anxiety; I25.10 Atherosclerotic heart disease of native coronary artery without angina pectoris; D69.6 Thrombocytopenia, unspecified; Z20.822 Contact with and (suspected) exposure to COVID-19; E87.6 Hypokalemia; K59.03 Drug induced constipation; K21.9 Gastro-esophageal reflux disease without esophagitis; E78.00 Pure hypercholesterolemia, unspecified; I10 Essential (primary) hypertension; I77.9 Disorder of arteries and arterioles, unspecified; H40.9 Unspecified glaucoma; H91.90 Unspecified hearing loss, unspecified ear; I25.2 Old myocardial infarction; Z79.02 Long term (current) use of antithrombotics/antiplatelets; Z79.82 Long term (current) use of aspirin; Z82.49 Family history of ischemic heart disease and other diseases of the circulatory system; Z82.2 Family history of deafness and hearing loss; T40.2X5A Adverse effect of other opioids, initial encounter; W01.0XXA Fall on same level from slipping, tripping and stumbling without subsequent striking against object, initial encounter; Y92.019 Unspecified place in single-family (private) house as the place of occurrence of the external cause
CPT/HCPCS: 36415; 51702; 71045; 72170; 73552; 80053; 81000; 82607; 83540; 85025; 85610; 85730; 87077; 87081; 87088; 87186; 87636; 93005; 94664; 94760; 96361; 96374

== ENCOUNTER → 2022-10-30 | Outpatient (CLI) | payer MEDICARE ==
[~2022-10-30] MED LIST changes: +ACET325T49 PO; +ASPI-1238 PO; +ATOR40TA70 PO; +BROM3DRO OS; +CLN.1T PO; +CLOP75TA28 PO; +DOCU100C37 PO; +ENOX40DI8 SC; +LISI2.5T13 PO; +LORA-404 PO; +OMEP-401 PO; +OMEP40CA6 PO; +OXC5T PO; +POTA-160 PO; +SNN187T PO; +TIMO5DRO5 OP
--- NOTE | 2022-10-30 18:41 | Diagnostic Imaging Report ---
INDICATION: Right hip pain. FINDINGS: 2 views. Arthroplasty of the right hip shows good alignment. Components appear in good position without loosening. No cortical bony fractures. IMPRESSION: Stable appearing arthroplasty of right hip when compared with 08/28/2022. Dictated by: Dictated on workstation # [id number]
== END ==
LOC: ORTHO 09:53
PROVIDERS: ATTEND Orthopaedic Surgery
DX: M25.551 Pain in right hip (principal)
CPT/HCPCS: 73502

== ENCOUNTER → 2022-11-29 | Outpatient (CLI) | payer MEDICARE | LOC: ORTHO 10:56 | PROVIDERS: ATTEND Orthopaedic Surgery | DX: Z47.89 Encounter for other orthopedic aftercare (principal) ==

== ENCOUNTER → 2023-01-11 | Outpatient (CLI) | payer MEDICARE | LOC: LAB 11:06 | PROVIDERS: ATTEND Internal Medicine | DX: N39.0 Urinary tract infection, site not specified (principal); R41.0 Disorientation, unspecified | CPT/HCPCS: 87077; 87088; 87186 ==

== ENCOUNTER 2023-06-07 23:23 | Emergency (ER) | payer MEDICARE ==
[~2023-06-07 23:23] MED LIST changes: +TIMO5DRO16 OP; -TIMO5DRO5 OP
[2023-06-07 23:52] LABS: BASOPHILS # (AUTO) 0.1 10^3/uL (0.0-0.1); BASOPHILS % (AUTO) 1 % (0-10); EOSINOPHILS # (AUTO) 0.6 10^3/uL (0.0-0.3); EOSINOPHILS % (AUTO) 6 % (0-10); HEMATOCRIT 35 % (35-52); HEMOGLOBIN 11.6 g/dL (11.5-16.0); LYMPHOCYTES # (AUTO) 2.7 10^3/uL (1.0-4.0); LYMPHOCYTES % (AUTO) 29 % (12-44); MEAN CORPUSCULAR HEMOGLOBIN 33 pg (25-34); MEAN CORPUSCULAR HGB CONC 33 g/dL (32-36); MEAN CORPUSCULAR VOLUME 101 fL (80-99); MEAN PLATELET VOLUME 9.3 fL (9.0-12.2); MONOCYTES # (AUTO) 0.5 10^3/uL (0.0-1.0); MONOCYTES % (AUTO) 5 % (0-12); NEUTROPHILS # (AUTO) 5.3 10^3/uL (1.8-7.8); NEUTROPHILS % (AUTO) 59 % (42-75); PLATELET COUNT 195 10^3/uL (130-400); WHITE BLOOD COUNT 9.1 10^3/uL (4.3-11.0)
[2023-06-08] MEDS ORDERED: meTOprolol 5 MG/5 ML (LOPRESSOR) VIAL IV ONE
--- NOTE | 2023-06-08 00:07 | ED Cardiac General ---
History of Present Illness General Chief Complaint: Cardiac/General Problems Stated Complaint: HIGH BLOOD PRESSURE,PULSE RACING Nursing Triage Note: PT AMB TO RM 7 WITH CC OF FEELING OF HEART RACING SINCE APPROX 2200 THIS EVENING. PT STATES WAS LAYING IN BED AND FELT LIKE HER HEART "WAS GOING TO POUND OUT OF HER CHEST." PT DENIES CHEST PAIN USER EXPERIENCE TEAM LEAD AND AT TIME OF TRIAGE. PT HAS CARDIAC HX. PT A&OX4 Source: patient, family Exam Limitations: other (Patient has hearing deficits) (RAÚL MEJÍA) History of Present Illness Date Seen by Provider: Jun 08, 2023 Time Seen by Provider: 23:35 Initial Comments Our patient is an 82 yo F who presents to the emergency department due to a rapid heart rate that started around 1.5 hours before her presentation. She states that she was lying in bed and had been asleep for around an hour before she awoke to a feeling of her heart racing. She denies chest pain or pressure, lightheadedness, nausea, vomiting, diaphoresis, SOB, hearing loss or vision loss. She has had no recent fevers or sick contacts. She notes that she has a mild headache that started around the same time as her palpitations. Denies abdominal pain and dysuria but does note some urinary frequency. She has a previous history of cardiac intervention in which Dr. Welsh placed two stents in her coronary vessels. She takes clopidogrel, lipitor, metoprolol, and low- dose aspirin every morning. Timing/Duration: 1-3 hours Activities at Onset: sleep Prior CP/Workup: cardiac cath Associated Systoms: No Chest Pain, No Cough, No Diaphoresis, No Fever/Chills; Headaches; No Nausea/Vomiting, No Shortness of Air, No Syncope (RAÚL MEJÍA) Allergies and Home Medications Allergies Coded Allergies: No Known Drug Allergies (Unverified , 06/02/13) Patient Home Medication List Home Medication List Reviewed: Yes (MAYE PELAYO MD) Acetaminophen (Acetaminophen) 325 Mg Tablet, 650 MG PO Q4H PRN for TEMPERATURE Prescribed by: SANJAY RUIZ on 09/03/22 0537 Apixaban (Eliquis) 5 Mg Tablet, 5 MG PO BID Prescribed by: MAYE RUBY on 06/08/23 0139 Aspirin (Aspirin EC) 81 Mg Tablet.dr 81 MG PO DAILY Prescribed by: SANJAY RUIZ on 09/03/22536 Atorvastatin Calcium (Atorvastatin Calcium) 40 Mg Tablet, 40 MG PO DAILY Prescribed by: SANJAY RUIZ on 09/03/22536 Bimatoprost (Lumigan) 0.01 % Drops, 1 DROP OU HS Prescribed by: SANJAY RUIZ on 09/03/22536 Bromfenac Sodium (Prolensa) 0.07 % Drops, 1 DROP OS DAILY Prescribed by: SANJAY RUIZ on 09/03/22536 Clonidine HCl (Clonidine HCl) 0.1 Mg Tablet, 0.1 MG PO Q4H PRN for sbp>170 Prescribed by: SANJAY RUIZ on 09/03/22536 Clopidogrel Bisulfate (Clopidogrel) 75 Mg Tablet, 75 MG PO DAILY Prescribed by: SANJAY RUIZ on 09/03/22536 Docusate Sodium (Docusate Sodium) 100 Mg Capsule, 100 MG PO BID Prescribed by: SANJAY RUIZ on 09/03/22536 Enoxaparin Sodium (Enoxaparin Sodium) 40 Mg/0.4 Ml Syringe, 40 MG SC Q24H Prescribed by: SANJAY RUIZ on 09/03/22536 Lisinopril (Lisinopril) 2.5 Mg Tablet, 2.5 MG PO DAILY Prescribed by: SANJAY RUIZ on 09/03/22536 Lorazepam (Ativan) 0.5 Mg Tablet, 0.25 MG PO Q6H PRN for ANXIETY Prescribed by: SANJAY RUIZ on 09/03/22537 Metoprolol Succinate (Metoprolol Succinate) 25 Mg Tab.er.24h, 25 MG PO DAILY Prescribed by: SANJAY RUIZ on 09/03/22536 Omeprazole (Omeprazole) 20 Mg Tab.rap.dr, 20 MG PO DAILY Prescribed by: SANJAY RUIZ on 09/03/22536 Oxycodone Hcl (Oxyir Tablet) 5 Mg Tab, 5 MG PO Q4H PRN for PAIN-SEE DOSE INSTRUCTIONS Prescribed by: SANJAY RUIZ on 09/03/22537 Potassium Chloride (Klor-Con 10) 10 Meq Tablet.er, 10 MEQ PO DAILY Prescribed by: SANJAY RUIZ on 09/03/22536 Sennosides (Senna Lax) 8.6 Mg Tablet, 8.6 MG PO BID Prescribed by: SANJAY RUIZ on 09/03/22536 Timolol Maleate (Timolol Maleate 0.5%) 0.5 % Drops, 1 DROP OP DAILY Prescribed by: SANJAY RUIZ on 09/03/22536 Review of Systems Review of Systems Constitutional: no symptoms reported; No chills, No diaphoresis, No dizziness, No fever EENTM: No Symptoms Reported; No Blurred Vision, No Double Vision Respiratory: No Symptoms Reported; Denies Cough, Denies Shortness of Air Cardiovascular: See HPI; Denies Chest Pain; Edema, Irregular Heart Rate; Denies Lightheadedness; Palpitations; Denies Syncope Gastrointestinal: No Symptoms Reported, See HPI; Denies Constipated, Denies Diarrhea, Denies Nausea, Denies Vomiting Genitourinary: Denies Burning; Frequency Musculoskeletal: no symptoms reported; No neck pain Skin: no symptoms reported Psychiatric/Neurological: Headache; Denies Weakness Endocrine: No Symptoms Reported; Denies Excessive Sweating Hematologic/Lymphatic: No Symptoms Reported (RAÚL MEJÍA) All Other Systems Reviewed Negative Unless Noted: Yes (RAÚL MEJÍA) Past Qaxacvc-Tkaapd-Ufyvic Hx Patient Social History Tobacco Use?: No Substance use?: No Alcohol Use?: Yes Alcohol type: Wine Alcohol Frequency: Rarely Pt feels they are or have been: No (RAÚL MEJÍA) Immunizations Up To Date Tetanus Booster (TDap): Less than 5yrs First/Initial COVID19 Vaccinat: YES Second COVID19 Vaccination Erich: YES Third COVID19 Vaccination Date: YES (RAÚL MEJÍA) Seasonal Allergies Seasonal Allergies: No (RAÚL MEJÍA) Past Medical History Surgery/Hospitalization HX: HTN, CAD, STENT Surgeries: Yes (CARDIAC CATHS WITH STENTS X 2) Coronary Stent (2x), Gallbladder, Hysterectomy Cardiac: Yes (STENTS X 2) Coronary Artery Disease, High Cholesterol, Hypertension Neurological: No Reproductive Disorders: No Sexually Transmitted Disease: No Genitourinary: No HEENT: Yes Cataract, Glaucoma Hearing Impairment: Hard of Hearing Adverse Reaction/Blood Tranf: No (RAÚL MEJÍA) Family Medical History Cancer AUNT (PATERNAL) AUNT (PATERNAL) Chest pain GRANDFATEHR (MATERNAL) Family history: Arthritis 03 FATHER 03 MOTHER Family history: Breast disease AUNT (PATERNAL) AUNT (PATERNAL) Family history: Cardiovascular disease GRANDFATEHR (MATERNAL) Family history: Coronary thrombosis GRANDFATEHR (MATERNAL) Family history: Diabetes mellitus 03 MOTHER Family history: Hypertension GRANDFATEHR (MATERNAL) Hearing loss 03 FATHER Myocardial infarction GRANDFATEHR (MATERNAL) Stroke GRANDMOTHER (MATERNAL) Heart Disease ADDITIONAL PMH: -06/2013--STEMI WITH ANGIOPLASTY AND STENT [address] WELSH -11/2013--NSTEMI WITH ANGIOPLASTY AND STENT X 1 TO OBTUSE MARGINAL OF LEFT CIRCUMFLEX--BY DR. WELSH (RAÚL MEJÍA) Physical Exam Vital Signs Vital Signs - First Documented 06/07/23 23:34 Temp 36.4 Pulse 130 Resp 8 B/P (MAP) 159/112 (128) Pulse Ox 97 O2 Delivery Room Air (MAYE PELAYO MD) Vital Signs Capillary Refill : Less Than 3 Seconds (RAÚL MEJÍA) Height, Weight, BMI Height: '" Weight: 151lbs. oz. [id number]; 24.74 BMI Method:Stated General Appearance: No Apparent Distress, WD/WN HEENT: PERRL/EOMI; No Scleral Icterus (L), No Scleral Icterus (R); Other (Bilateral deficits in hearing) Neck: Normal Inspection, Non Tender, Supple; No Carotid Bruit, No JVD, No Lymphadenopathy (L), No Lymphadenopathy (R) Respiratory: Chest Non Tender, Lungs Clear, Normal Breath Sounds, No Accessory Muscle Use, No Respiratory Distress Cardiovascular: No Gallop, No JVD, Systolic Murmur, Irregularly Irregular, Tachycardia Gastrointestinal: Normal Bowel Sounds, No Organomegaly, No Pulsatile Mass, Soft, Tenderness (Mild suprapubic tenderness) Rectal: Deferred Extremity: No Calf Tenderness, Pedal Edema (1+ pitting edema) Neurologic/Psychiatric: Alert, Oriented x3, Normal Mood/Affect Skin: Normal Color, Warm/Dry (RAÚL MEJÍA) Progress/Results/Core Measures Results/Orders Lab Results Laboratory Tests Test 06/07/23 23:43 Range/Units White Blood Count 9.1 4.3-11.0 10^3/uL Red Blood Count 3.51 L 3.80-5.11 10^6/uL Hemoglobin 11.6 11.5-16.0 g/dL Hematocrit 35 35-52 % Mean Corpuscular Volume 101 H 80-99 fL Mean Corpuscular Hemoglobin 33 25-34 pg Mean Corpuscular Hemoglobin Concent 33 32-36 g/dL Red Cell Distribution Width 12.7 10.0-14.5 % Platelet Count 195 130-400 10^3/uL Mean Platelet Volume 9.3 9.0-12.2 fL Immature Granulocyte % (Auto) 0 % Neutrophils (%) (Auto) 59 42-75 % Lymphocytes (%) (Auto) 29 12-44 % Monocytes (%) (Auto) 5 0-12 % Eosinophils (%) (Auto) 6 0-10 % Basophils (%) (Auto) 1 0-10 % Neutrophils # (Auto) 5.3 1.8-7.8 10^3/uL Lymphocytes # (Auto) 2.7 1.0-4.0 10^3/uL Monocytes # (Auto) 0.5 0.0-1.0 10^3/uL Eosinophils # (Auto) 0.6 H 0.0-0.3 10^3/uL Basophils # (Auto) 0.1 0.0-0.1 10^3/uL Immature Granulocyte # (Auto) 0.0 0.0-0.1 10^3/uL Sodium Level 146 H 135-145 MMOL/L Potassium Level 3.0 L 3.6-5.0 MMOL/L Chloride Level 107 98-107 MMOL/L Carbon Dioxide Level 24 21-32 MMOL/L Anion Gap 15 H 5-14 MMOL/L Blood Urea Nitrogen 14 7-18 MG/DL Creatinine 1.02 0.60-1.30 MG/DL Estimat Glomerular Filtration Rate 54 BUN/Creatinine Ratio 14 Glucose Level 121 H 70-105 MG/DL Calcium Level 9.7 8.5-10.1 MG/DL Corrected Calcium 9.4 8.5-10.1 MG/DL Magnesium Level 2.0 1.6-2.4 MG/DL Total Bilirubin 0.5 0.1-1.0 MG/DL Aspartate Amino Transf (AST/SGOT) 43 H 5-34 U/L Alanine Aminotransferase (ALT/SGPT) 29 0-55 U/L Alkaline Phosphatase 77 40-136 U/L Total Protein 7.4 6.4-8.2 GM/DL Albumin 4.4 3.2-4.5 GM/DL TSH [facility] Testing 1.83 0.35-4.94 UIU/ML (MAYE PELAYO MD) My Orders Orders - MAYE PELAYO MD Ekg Tracing (06/07/23 23:40) Ekg Tracing (06/07/23 23:40) Cbc With Automated Diff (06/07/23 23:45) Comprehensive Metabolic Panel (06/07/23 23:45) Magnesium (06/07/23 23:45) Ed Iv/Invasive Line Start (06/07/23 23:45) Metoprolol Tartrate Injection (Lopressor (06/08/23 00:00) Thyroid Analyzer (06/07/23 23:43) Ekg Tracing (06/08/23 00:32) Potassium Cl 10meq/50ml Ivpb (Kcl 10 Meq (06/08/23 01:15) Ns Iv 500 Ml (Sodium Chloride 0.9%) (06/08/23 01:15) Potassium Chloride (Tablet) (Klor Con Ta (06/08/23 01:15) Potassium Chloride (Tablet) (Klor Con Ta (06/08/23 01:30) Metoprolol Succinate (Xl) Tab (Toprol Xl (06/08/23 01:45) Apixaban Tablet (Eliquis Tablet) (06/08/23 01:45) (MAYE PELAYO MD) Medications Given in ED Current Medications Medications Dose Ordered Sig/Margo Route Start Time Stop Time Status Last Admin Dose Admin Apixaban 5 mg ONCE ONCE PO 06/08/23 01:45 06/08/23 01:46 DC 06/08/23 02:48 5 MG Metoprolol Succinate 25 mg ONCE ONCE PO 06/08/23 01:45 06/08/23 01:46 DC 06/08/23 02:48 25 MG Metoprolol Tartrate 5 mg ONCE ONCE IV 06/08/23 00:00 06/08/23 00:01 DC 06/08/23 00:06 5 MG Potassium Chloride 20 meq ONCE ONCE PO 06/08/23 01:15 06/08/23 01:16 DC 06/08/23 02:48 20 MEQ Potassium Chloride 20 meq ONCE ONCE PO 06/08/23 01:30 06/08/23 01:31 DC 06/08/23 02:48 20 MEQ Potassium Chloride 50 ml @ 50 mls/hr ONCE ONCE IV 06/08/23 01:15 06/08/23 02:14 DC 06/08/23 01:17 50 MLS/HR Sodium Chloride 500 ml @ 0 mls/hr Q0M ONCE IV 06/08/23 01:15 06/08/23 01:16 DC 06/08/23 01:17 50 MLS/HR (MAYE PELAYO MD) Vital Signs/I&O 06/07/23 06/08/23 23:34 02:54 Temp 36.4 36.5 Pulse 130 57 Resp 8 10 B/P (MAP) 159/112 (128) 137/78 Pulse Ox 97 98 O2 Delivery Room Air Room Air (MAYE PELAYO MD) Blood Pressure Mean: 128 EKG #1: EKG Time: 23:42 Rate: 120 Rhythm: A Fib/Flutter ECG Impression: Atrial Fibrillation w/RVR Comment Atrial fibrillation with rapid ventricular rate. No diagnostic ST elevation. ST depression noted noted in the V leads. EKG #2: EKG Time: 00:34 Rate: 72 Rhythm: Normal Sinus Comment Sinus rhythm with no ST elevation or depression. This EKG represents conversion from A-fib RVR after administration of Lopressor. ST depression resolved. No abnormal intervals or axis deviation. (MAYE PELAYO MD) Departure Impression Primary Impression: New onset atrial fibrillation Additional Impressions: Paroxysmal atrial fibrillation with RVR Hypokalemia Disposition: 01 HOME, SELF-CARE Condition: Improved Departure-Patient Inst. Decision time for Depature: 01:33 (MAYE PELAYO MD) Referrals: GABBIE MONTES MD (PCP/Family) Primary Care Physician Patient Instructions: Atrial fibrillation, Going Home on Blood Thinners Add. Discharge Instructions: 1. You received a dose of Toprol-XL (metoprolol succinate) 25 mg in the emergency room. Take your usual Toprol-XL 25 mg this morning at your usual time. This will total 50 mg for today's total dose. Starting Saturday, take a total of 50 mg Toprol-XL every day until otherwise instructed. 2. Follow-up with Dr. Welsh as soon as possible. Please call his office first thing on Saturday. He would like to see you in his office early in the week. 3. Start your Eliquis prescription with the next dose taken this evening (Saturday evening). Please return to the emergency room if you ever have any unusual bleeding, head trauma, or other significant trauma as use of Eliquis increases risk of serious bleeding events. 4. You have low potassium on your emergency room labs. This should be monitored by your reimbursement counselor and/or primary care provider. Please discuss the best way to monitor your potassium levels at your follow-up appointment. 5. If you have prolonged episodes of atrial fibrillation or have atrial fibrillation accompanied by notable symptoms of lightheadedness, shortness of br eath, weakness, etc., please return to the emergency room. 6. If you ever have any symptoms of stroke including problems with understanding or creating speech, abrupt vision changes, numbness or weakness of any body part, abrupt balance problems, or other abrupt neurologic problems, please return to the emergency room immediately. All discharge instructions reviewed with patient and/or family. Voiced understanding. Scripts Apixaban (Eliquis) 5 Mg Tablet 5 MG PO BID, #60 TAB Prov: MAYE PELAYO MD 06/08/23 RAÚL MEJÍA Jun 08, 2023 00:07 MAYE PELAYO MD Jun 08, 2023 01:38
[2023-06-08 00:22] LABS: ALBUMIN 4.4 GM/DL (3.2-4.5)
[2023-06-08 00:24] LABS: CALCIUM 9.7 MG/DL (8.5-10.1)
[2023-06-08 00:25] LABS: TOTAL PROTEIN 7.4 GM/DL (6.4-8.2)
[2023-06-08 00:27] LABS: BILIRUBIN,TOTAL 0.5 MG/DL (0.1-1.0)
[2023-06-08 00:29] LABS: CREATININE SERUM 1.02 MG/DL (0.60-1.30)
[2023-06-08 00:52] LABS: TSH (THYROID ANALYZER) 1.83 UIU/ML (0.35-4.94)
[2023-06-08] MEDS ORDERED: NS IV 500 ML 500 ML IV ONE (01:15)
[2023-06-08] MEDS ORDERED: KCL 10 MEQ TAB (MICRO K) PO ONE ×2 (01:15→01:30)
[2023-06-08] MEDS ORDERED: POTASSIUM CL 10MEQ/50ML IVPB 50 ML IV ONE (01:15)
[2023-06-08] MEDS ORDERED: APIX5TAB PO (01:39)
[2023-06-08] MEDS ORDERED: APIXABAN 5 MG (ELIQUIS) TABLET PO ONE (01:45)
[2023-06-08 02:54] VITALS: BP 137/78
== END 2023-06-08 02:56 | disposition home or self-care (01) ==
LOC: EDUNIT# 23:23 → ER 23:25
DX: I48.0 Paroxysmal atrial fibrillation (principal); E87.6 Hypokalemia; Z79.01 Long term (current) use of anticoagulants; Z79.899 Other long term (current) drug therapy; Z79.82 Long term (current) use of aspirin; Z95.5 Presence of coronary angioplasty implant and graft; Z86.79 Personal history of other diseases of the circulatory system
CPT/HCPCS: 36415; 80053; 83735; 84443; 85025; 93005

== ENCOUNTER → 2023-07-16 | Outpatient (CLI) | payer MEDICARE ==
[~2023-07-16] MED LIST changes: +APIX5TAB PO; +REGADENOSON 0.4 MG/5 ML SYR (LEXISCAN) IV ONE; +SENN-341 PO; -SNN187T PO
[2023-07-16] MEDS: CATHETER FLUSH 10 ML SYR IVP PRN (08:18)
[2023-07-16 09:52] VITALS: BP 149/82
--- NOTE | 2023-07-16 19:50 | STRESS TEST ---
DATE OF SERVICE: 07/16/2023 RESTING AND POST REGADENOSON TECHNETIUM-99M TETROFOSMIN SPECT CT IMAGING ORDERING PHYSICIAN: Fidelia Welsh M.D.; MARA; KENA; ADILSON; PRIMARY PHYSICIAN: Dr. Blake. CLINICAL DIAGNOSIS: Paroxysmal atrial fibrillation. Baseline images were carried out after injection of 10.58 mCi of technetium-99m tetrofosmin. This was followed by 0.4 mg regadenoson and 32 mCi of technetium-99m tetrofosmin for stress imaging. The electrocardiogram showed sinus rhythm at baseline. It did not change significantly with the regadenoson infusion. Review of images at rest and following stress did not indicate any significant perfusion defects consistent with myocardial ischemia or infarction. Gated images show normal regional wall motion. Left ventricular ejection fraction is calculated to be 62%. CONCLUSIONS: 1. No evidence of any significant myocardial ischemia or infarction on this study. 2. Normal regional wall motion. 3. Normal global left ventricular systolic function with a calculated ejection fraction of 62%. Job ID: [id number] DocumentID: [id number] Dictated Date: 07/16/2023 17:09:18 Development Expert Date: 07/16/2023 19:49:00 Dictated By: FIDELIA WELSH MD; MARA; KENA; ADILSON;
== END ==
LOC: CARD 07:58
PROVIDERS: ATTEND Internal Medicine Cardiovascular Disease
DX: I48.0 Paroxysmal atrial fibrillation (principal)
CPT/HCPCS: 78452; 93017; A9502

== ENCOUNTER 2023-07-17 14:57 | Outpatient (CLI) | payer MEDICARE ==
[~2023-07-17 14:57] MED LIST changes: -REGADENOSON 0.4 MG/5 ML SYR (LEXISCAN) IV ONE
== END 2023-07-17 15:20 ==
LOC: SLEEP 14:57
PROVIDERS: ATTEND Otolaryngology Otolaryngology/Facial Plastic Surgery
DX: G47.33 Obstructive sleep apnea (adult) (pediatric) (principal); G47.00 Insomnia, unspecified; R06.83 Snoring
CPT/HCPCS: G0399